=== PATIENT | female | born 1960 | race Caucasian/White ===

== ENCOUNTER → 2017-12-30 11:42 | Outpatient (CLI) | payer BC, SELFPAY ==
--- NOTE | 2017-12-30 11:45 | RAD_ITS ---
STUDY: X-RAY LEFT FOOT, FIFTH TOE REASON FOR EXAM: Female, 57 years old. Pain after trauma TECHNIQUE: 3 view(s) of the toe were obtained. COMPARISON: None. FINDINGS: There is an acute minimally displaced fracture in the distal aspect of the proximal fifth phalanx with soft tissue swelling. Joint spaces well-preserved, no other demonstrated fracture. RAD/Toe(s) Min 2 Views IMPRESSION: Acute minimally displaced fracture in the distal aspect of the proximal fifth phalanx with soft tissue swelling Electronically Signed: Akil Contreras MD at 11:55 EDT , Service support ,
== END ==
PROVIDERS: Family Provider Family Medicine; PCP Family Medicine; Visit Provider Family Medicine
DX: S90.129A Contusion of unspecified lesser toe(s) without damage to nail, initial encounter (principal)
CPT/HCPCS: 73660

== ENCOUNTER → 2018-05-21 10:02 | Outpatient (CLI) | payer BC, SELFPAY ==
--- NOTE | 2018-05-21 10:06 | RAD_ITS ---
STUDY: X-RAY - CERVICAL SPINE REASON FOR EXAM: Female, 58 years old. Neck pain for 4 months with headaches TECHNIQUE: 5 view(s) of the cervical spine were obtained. COMPARISON: None FINDINGS: Normal anterior atlantoaxial articulation. Normal odontoid process. There is straightening of the normal cervical lordosis. There is multi-level endplate spondylosis. There is loss of disc space at multiple cervical levels but most conspicuous at C5-C6 and C6-C7. Uncovertebral hypertrophy and facet arthropathy contribute to foraminal narrowing of bilateral foraminal stenosis at C5-C6 and C6-C7. The soft tissue structures are unremarkable. RAD/Cerv Spine 4 or 5 Views IMPRESSION: Degenerative disc disease with foraminal stenosis most evident at C5-C6 and C6-C7. Electronically Signed: Fan Faustin MD at 7:03 EST , Service support ,
== END ==
PROVIDERS: Family Provider Family Medicine; PCP Family Medicine; Referring Provider Family Medicine; Visit Provider Family Medicine
DX: M54.2 Cervicalgia (principal)
CPT/HCPCS: 72050; A4216

== ENCOUNTER → 2018-06-03 16:57 | Outpatient (CLI) | payer BC, SELFPAY ==
--- NOTE | 2018-06-03 17:02 | MRI_ITS ---
STUDY: MRI CERVICAL SPINE WITHOUT CONTRAST REASON FOR EXAM: Female, 58 years old. Left-sided neck pain radiating into the head with burning in the left ear TECHNIQUE: Standardized fat and water weighted pulse sequences were obtained in the sagittal and axial planes. COMPARISON: None FINDINGS: Normal foramen magnum and brainstem-cervical cord junction. Normal craniovertebral junction. Normal anterior atlantoaxial articulation. Normal odontoid process. Normal cervical lordosis. Normal vertebral bodies and posterior osseous elements. C2-3: Normal endplates. Normal disc height, signal and morphology. Normal central canal and intervertebral neural foramina. C3-4: Disc osteophyte complex and left facet hypertrophy with severe left foraminal stenosis. C4-5: Disc osteophyte complex and left facet hypertrophy with severe left foraminal stenosis and mild central canal stenosis. C5-6: Disc osteophyte complex and bilateral facet hypertrophy with mild central canal stenosis and severe right and moderate left foraminal stenoses. C6-7: Disc osteophyte complex with moderate central canal and severe bilateral foraminal stenoses. C7-T1: Normal endplates. Normal disc height, signal and morphology. Normal central canal and intervertebral neural foramina. Normal cervical cord. Indeterminate round T2 hypointense structure in the region of the inferior right parotid gland as seen on image 132 of series 7. Consider correlation with postcontrast neck CT if clinically indicated. MRI/Spine Cervical (Routine) IMPRESSION: Multilevel degenerative disease as described. Severe foraminal stenoses on the left at C3-4, on the left at C4-5, on the right at C5-6, and bilaterally at C6-7. No cord lesions are seen. Indeterminate round T2 hypointense structure in the region of the inferior right parotid gland as described. Consider correlation with postcontrast neck CT if clinically indicated Electronically Signed: Saroj Uriarte MD at 15:02 EST Tel , Service support ,
== END ==
PROVIDERS: Family Provider Family Medicine; PCP Family Medicine; Referring Provider Family Medicine; Visit Provider Family Medicine
DX: R51 Headache (principal)
CPT/HCPCS: 72141

== ENCOUNTER → 2018-06-16 07:11 | Outpatient (CLI) | payer BC, SELFPAY ==
--- NOTE | 2018-06-16 07:13 | BI_ITS ---
MAMMOGRAPHY - BILATERAL SCREENING REASON FOR EXAM: Female, 58 years old. Routine annual screening examination. PERTINENT HISTORY: Non-contributory. Bilateral breast implants. TECHNIQUE: Digital bilateral breast travon (3D mammographic acquisition) in the CC and MLO projections. 2-D mediolateral oblique (MLO) and craniocaudad (CC) views of both breasts were obtained. CAD: Full Field Digital Mammography with Computer Added Detection was performed. COMPARISON: Comparison is made with prior study dated January 24, 2016. FINDINGS: Breast Composition: The breasts are extremely dense, which lowers the sensitivity of mammography. There are no dominant masses or suspicious calcifications. Stable appearance of the bilateral breast implants. No other significant abnormalities are identified. There has been no significant change since the prior study. BI/SCREENING MAMM (CAD), BILAT IMPRESSION: Stable bilateral screening mammogram. Yearly follow-up mammogram recommended. (A) ASSESSMENT CATEGORY: BIRADS Category 2: Benign. A letter regarding these results will be sent to the patient by the facility within 30 days. Approximately 10% of breast cancers are not detected by mammography. A normal mammogram should not delay biopsy of a clinically suspicious abnormality. [id number] Electronically Signed: Bravo Pritchard MD at 9:02 EST Tel [phone], Service support ,
--- OUTSIDE RECORDS SUMMARY | 2018-09-17 17:06 | XMS RPT_ITS ---
:1960 Author Organization [facility] Care Team Providers Name Role Phone YANG SOLORZANO MD Attending Unavailable JEANINE MONTGOMERY, YANG Hannah Attending Unavailable Daniel Jane Attending Unavailable Buck, Daniel Primary Care Unavailable Daniel Jane Referring Unavailable Buck, Daniel Attending Unavailable Daniel Jane Referring Unavailable Daniel Jane Primary Care Unavailable Daniel Jane Attending Unavailable Jane, Daniel Referring Unavailable Jane, Daniel Primary Care Unavailable Jane, Daniel Attending Unavailable Jane, Daniel Referring Unavailable Jane, Daniel Primary Care Unavailable PROBLEMS PROBLEMS DATE TYPE CONDITION / CODE ATTENDING STATUS SOURCE 12/30/2017 Unknown S90.129A - Daniel Jane Active [facility] without damage to nail, initial encounter / S90.129A(ICD-10) PROCEDURES PROCEDURES No Procedure Records FoundRESULTS RESULTS SCREENING MAMM (CAD), Observed: 06/16/2018 Status: F Source: EPIFANIO BILAT 7:13 AM [facility] REPOSITORY [facility] Imaging Services [address] [place] [address] SCREENING MAMM (CAD), BILAT MR#: [id number] Acct: [id number] Name: ROB YOUNGBLOOD Rep #: [id number] : 1960 F 58 From: Bravo Pritchard MD PCP: Daniel Jane MD Status: REG CLI Study: SCREENING MAMM (CAD), BILAT Date of Exam: 06/16/18 Exam# [id number] Ordering Dr: Daniel Jane MD MAMMOGRAPHY - BILATERAL SCREENING REASON FOR EXAM: Female, 58 years old. Routine annual screening examination. PERTINENT HISTORY: Non-contributory. Bilateral breast implants. TECHNIQUE: Digital bilateral breast travon (3D mammographic acquisition) in the CC and MLO projections. 2-D mediolateral oblique (MLO) and craniocaudad (CC) views of both breasts were obtained. CAD: Full Field Digital Mammography with Computer Added Detection was performed. COMPARISON: Comparison is made with prior study dated January 24, 2016. FINDINGS: Breast Composition: The breasts are extremely dense, which lowers the sensitivity of mammography. There are no dominant masses or suspicious calcifications. Stable appearance of the bilateral breast implants. No other significant abnormalities are identified. There has been no significant change since the prior study. BI/SCREENING MAMM (CAD), BILAT IMPRESSION: Stable bilateral screening mammogram. Yearly follow-up mammogram recommended. (A) ASSESSMENT CATEGORY: BIRADS Category 2: Benign. A letter regarding these results will be sent to the patient by the facility within 30 days. Approximately 10% of breast cancers are not detected by mammography. A normal mammogram should not delay biopsy of a clinically suspicious abnormality. [id number] Electronically Signed: Bravo Pritchard MD at 9:02 EST Tel [phone], Service support , CC: Daniel Jane MD Level Vial Sealer: Signed SPINE CERVICAL Observed: 06/03/2018 Status: F Source: SEA GIRT (ROUTINE) 5:02 PM [facility] REPOSITORY [facility] Imaging Services [address] [place] [address] Spine Cervical (Routine) MR#: [id number] Acct: [id number] Name: ROB YOUNGBLOOD Rep #: [id number] : 1960 F 58 From: Saroj Uriarte MD PCP: Daniel Jane MD Status: REG CLI Study: Spine Cervical (Routine) Date of Exam: 06/03/18 Exam# [id number] Ordering Dr: Daniel Jane MD STUDY: MRI CERVICAL SPINE WITHOUT CONTRAST REASON FOR EXAM: Female, 58 years old. Left-sided neck pain radiating into the head with burning in the left ear TECHNIQUE: Standardized fat and water weighted pulse sequences were obtained in the sagittal and axial planes. COMPARISON: None FINDINGS: Normal foramen magnum and brainstem-cervical cord junction. Normal craniovertebral junction. Normal anterior atlantoaxial articulation. Normal odontoid process. Normal cervical lordosis. Normal vertebral bodies and posterior osseous elements. C2-3: Normal endplates. Normal disc height, signal and morphology. Normal central canal and intervertebral neural foramina. C3-4: Disc osteophyte complex and left facet hypertrophy with severe left foraminal stenosis. C4-5: Disc osteophyte complex and left facet hypertrophy with severe left foraminal stenosis and mild central canal stenosis. C5-6: Disc osteophyte complex and bilateral facet hypertrophy with mild central canal stenosis and severe right and moderate left foraminal stenoses. C6-7: Disc osteophyte complex with moderate central canal and severe bilateral foraminal stenoses. C7-T1: Normal endplates. Normal disc height, signal and morphology. Normal central canal and intervertebral neural foramina. Normal cervical cord. Indeterminate round T2 hypointense structure in the region of the inferior right parotid gland as seen on image 132 of series 7. Consider correlation with postcontrast neck CT if clinically indicated. MRI/Spine Cervical (Routine) IMPRESSION: Multilevel degenerative disease as described. Severe foraminal stenoses on the left at C3-4, on the left at C4-5, on the right at C5- 6, and bilaterally at C6-7. No cord lesions are seen. Indeterminate round T2 hypointense structure in the region of the inferior right parotid gland as described. Consider correlation with postcontrast neck CT if clinically indicated Electronically Signed: Saroj Uriarte MD at 15:02 EST Tel , Service support , CC: Daniel Jane MD Level Vial Sealer: Signed CERV SPINE 4 OR 5 Observed: 05/21/2018 Status: F Source: SEA GIRT VIEWS 10:07 AM [facility] REPOSITORY [facility] Imaging Services [address] [place] [address] Cerv Spine 4 or 5 Views MR#: [id number] Acct: [id number] Name: ROB YOUNGBLOOD Rep #: [id number] : 1960 F 58 From: Fan Faustin MD PCP: Daniel Jane MD Status: REG CLI Study: Cerv Spine 4 or 5 Views Date of Exam: 05/21/18 Exam# [id number] Ordering Dr: Daniel Jane MD STUDY: X-RAY - CERVICAL SPINE REASON FOR EXAM: Female, 58 years old. Neck pain for 4 months with headaches TECHNIQUE: 5 view(s) of the cervical spine were obtained. COMPARISON: None FINDINGS: Normal anterior atlantoaxial articulation. Normal odontoid process. There is straightening of the normal cervical lordosis. There is multi-level endplate spondylosis. There is loss of disc space at multiple cervical levels but most conspicuous at C5-C6 and C6-C7. Uncovertebral hypertrophy and facet arthropathy contribute to foraminal narrowing of bilateral foraminal stenosis at C5-C6 and C6-C7. The soft tissue structures are unremarkable. RAD/Cerv Spine 4 or 5 Views IMPRESSION: Degenerative disc disease with foraminal stenosis most evident at C5-C6 and C6-C7. Electronically Signed: Fan Faustin MD at 7:03 EST , Service support , CC: Daniel Jane MD Level Vial Sealer: Signed TOE(S) MIN 2 VIEWS Observed: 12/30/2017 Status: F Source: SEA GIRT 11:46 AM [facility] REPOSITORY [facility] Imaging Services [address] [place] [address] Toe(s) Min 2 Views MR#: [id number] Acct: [id number] Name: ROB YOUNGBLODO Rep #: [id number] : 1960 F 57 From: Russ Contreras MD PCP: Daniel Jane MD Status: REG CLI Study: Toe(s) Min 2 Views Date of Exam: 12/30/17 Exam# [id number] Ordering Dr: Daniel Jane MD STUDY: X-RAY LEFT FOOT, FIFTH TOE REASON FOR EXAM: Female, 57 years old. Pain after trauma TECHNIQUE: 3 view(s) of the toe were obtained. COMPARISON: None. FINDINGS: There is an acute minimally displaced fracture in the distal aspect of the proximal fifth phalanx with soft tissue swelling. Joint spaces well-preserved, no other demonstrated fracture. RAD/Toe(s) Min 2 Views IMPRESSION: Acute minimally displaced fracture in the distal aspect of the proximal fifth phalanx with soft tissue swelling Electronically Signed: Akil Contreras MD at 11:55 EDT , Service support , CC: Daniel Jane MD Level Vial Sealer: Signed XR FLUORO < 1HR Observed: 10/15/2017 Status: F Source: [place] TECH TIME 2:49 PM [facility] RE[facility]INAL Images acquired, not reported on this accession number. CMP Collected: 10/09/2017 Status: F Source: [place] 8:38 AM [facility] REPOSITORY TYPE CODE TESTS RESULT OUT OF REFERENCE UNITS RANGE LAB 1547-9 70-105 mg/dL GLUCOSE 91 LAB NA(LOINC) 136-146 mEq/L Sodium Level 139 LAB K(LOINC) 3.5-5.1 mEq/L Potassium Level 4.5 LAB CL(LOINC) 98-107 mEq/L Chloride 102 LAB CO2(LOINC) 22-29 mEq/L CO2 26 LAB EBAL(LOINC mEq/L ) Electrolyte Balance 11.0 LAB BUN(LOINC) 7.0-18.0 mg/dL BUN High 18.4 LAB CRE(LOINC) 0.6-1.2 mg/dL Creatinine Lvl (s) 1.0 LAB BC(LOINC) 7-27 ratio BUN/Creatinine 18 Ratio LAB CA(LOINC) 8.4-10.2 mg/dL Calcium Lvl High 10.5 LAB PROT(LOINC 6.0-8.3 G/dL ) Total Protein 7.3 LAB ALB(LOINC) 3.5-5.0 G/dL Albumin Level 4.6 LAB GLB(LOINC) G/dL Globulin 2.7 LAB AG(LOINC) 1.1-2.5 ratio A/G Ratio 1.7 LAB BILT(LOINC 0.2-1.0 mg/dL ) Bili Total 0.7 LAB AP(LOINC) 40-135 IU/L Alk Phos 72 LAB AST(LOINC) 10-40 IU/L AST/SGOT 25 LAB ALT(LOINC) 10-35 IU/L ALT/SGPT 17 Performed By: #### CMP, GFR, CBC, ADIFF, ANEU #### [facility] [address] [address] .GFR Collected: 10/09/2017 Status: F Source: [place] 8:38 AM [facility] REPOSITORY TYPE CODE TESTS RESULT OUT OF REFERENCE UNITS RANGE LAB GFRAA(LOINC ml/min/1.73 ) sqm GFR 69 Singaporean Result Comment: GFR Population mean for , Non- Americans Ages 20-29 = 116 mL/min/1.73 sq.m. Ages 30-39 = 107 mL/min/1.73 sq.m. Ages 40-49 = 99 mL/min/1.73 sq.m. Ages 50-59 = 93 mL/min/1.73 sq.m. Ages 60-69 = 85 mL/min/1.73 sq.m. Ages 70+ = 75 mL/min/1.73 sq.m. Chronic Kidney Disease: Less than 60 mL/min/1.73 square meters End Stage Renal Disease: Less than 15 mL/min/1.73 square meters LAB GFRNO(LOINC) ml/min/1.73sqm GFR Non- 57 Result Comment: GFR Population mean for , Non- Americans Ages 20-29 = 116 mL/min/1.73 sq.m. Ages 30-39 = 107 mL/min/1.73 sq.m. Ages 40-49 = 99 mL/min/1.73 sq.m. Ages 50-59 = 93 mL/min/1.73 sq.m. Ages 60-69 = 85 mL/min/1.73 sq.m. Ages 70+ = 75 mL/min/1.73 sq.m. Chronic Kidney Disease: Less than 60 mL/min/1.73 square meters End Stage Renal Disease: Less than 15 mL/min/1.73 square meters Performed By: #### CMP, GFR, CBC, ADIFF, ANEU #### [facility] [address] [address] CBC Collected: 10/09/2017 Status: F Source: [facility] 8:38 AM [facility] REPOSITORY TYPE CODE TESTS RESULT OUT OF REFERENCE UNITS RANGE LAB WBC(LOINC) 4.60-10.80 10 3/mcL WBC 4.60 LAB RBCCT(LOINC 4.20-5.40 10 6/mcL ) RBC 4.66 LAB HGB(LOINC) 12.0-16.0 G/dL Hgb 14.6 LAB HCT(LOINC) 37.0-47.0 % Hct 42.3 LAB MCV(LOINC) 80.0-94.0 fL MCV 90.8 LAB MCH(LOINC) 27.0-31.2 pg MCH 31.2 LAB MCHC(LOINC) 33.0-37.0 G/dL MCHC 34.4 LAB RDW(LOINC) 11.5-14.5 % RDW 13.2 LAB PLT(LOINC) 130-400 10 3/mcL Platelet 303 LAB MPV(LOINC) 7.4-10.4 fL MPV 8.9 Performed By: #### CMP, GFR, CBC, ADIFF, ANEU #### [address] [address] .AUTO DIFF Collected: 10/09/2017 Status: F Source: [facility] 8:38 [facility] REPOSITORY TYPE CODE TESTS RESULT OUT OF REFERENCE UNITS RANGE LAB ZENIA(LOINC) 37.0-80.0 % Neutrophil % 41.2 LAB LYM(LOINC) 10.0-50.0 % Lymphocyte % 43.5 LAB MON(LOINC) 1.7-13.0 % Monocyte % 9.8 LAB EO(LOINC) 0.0-7.0 % Eosinophil % 2.3 LAB BAS(LOINC) 0.0-2.5 % Basophil High % 3.2 LAB ABLYM(LOIN 0.77-3.85 10 3/mcL C) Lymphocyte, 2.00 Absolute LAB CONNOR(LOINC 0.15-1.00 10 3/mcL ) Monocyte, 0.50 Absolute LAB AEOS(LOINC 0.00-0.40 10 3/mcL ) Eosinophil, 0.10 Absolute LAB ABAS(LOINC 0.00-0.19 10 3/mcL ) Basophil, 0.10 Absolute Performed By: #### CMP, GFR, CBC, ADIFF, ANEU #### [facility] [address] [address] .NEUABS Collected: 10/09/2017 Status: F Source: [facility] 8:38 AM [facility] REPOSITORY TYPE CODE TESTS RESULT OUT OF REFERENCE UNITS RANGE LAB ANEU(LOINC) 2.85-6.16 10 3/mcL Low Neutrophil, 1.90 Absolute Performed By: #### CMP, GFR, CBC, ADIFF, ANEU #### [facility] [address] [place], [place] [address] ALLERGIES ALLERGIES No Allergies Records FoundENCOUNTERS ENCOUNTERS ADMIT/DISCHARGE ACCOUNT NUMBER ADMITTING ENCOUNTER LOCATION SOURCE CLASS 06/16/2018 [id number] [facility] ding:OPBI Repository 06/03/2018 [id number] [facility] ding:MRI Repository 05/21/2018 [id number] [facility] ding:MTRAD Repository 12/30/2017 [id number] [facility] ding:MTRAD Repository 10/15/2017/10/16/19 [id number] Ambulatory BBuilding:OS [address]: Health 0001Bed: D [facility] Repository 10/09/2017/10/10/19 [id number] Ambulatory [address] ding:OPRS [facility] Repository PAYERS PAYERS ENCOUNTER GUARANTOR PAYER SUBSCRIBER SOURCE 06/16/2018 TON Verma Primary TON Verma Epifanio [id number] Insurance:ANTHEMPolicy LTZDOB: [facility] Number: [id number] [id number] Repository [address]Edx: 330) Date:4030-00-03[phone] () [place]QZIM[place]CT, [place] [address]IZ: 06/16/2018 Secondary NOT GIVENUNK [place] Insurance:SELF PAY [facility] Number: Effective Repository Date:2018-05-02 06/03/2018 TON Verma Primary TON L [place] [id number] Insurance:ANTHEMPolicy TRENARYZB: [facility] Number: [id number], [place] [id number] Repository [address]Gpc: ([phone]) Date:3825-02-44VU [phone] () [id number] [place] [address]BP: 06/03/2018 Secondary NOT GIVENUNK [place] Insurance:SELF PAY [facility] Number: Effective Repository Date:2018-05-28 05/21/2018 TON L Primary TON Verma Epifanio [id number] Insurance:ANTHEMPolicy AULTZDOB: [facility] Number: [id number], [place] [id number] Repository [address]Zhd: ([phone]) Date:4748-97-35LX [phone] () 964148PGYQPTM, [place] [address]RD: 05/21/2018 Secondary NOT GIVENUNK Epifanio Insurance:SELF PAY [facility] Number: Effective Repository Date:2018-05-21 12/30/2017 TON L Primary TON Verma Epifanio [id number] Insurance:ANTHEMPolicy AULTZDOB: [facility] PETE Number: [id number], [place] [id number] Repository [address]Kjv: ([phone]) Date:6279-39-09[phone] () 967316JATLGZB, [place] [address]CF: 12/30/2017 Secondary NOT GIVENUNK [place] Insurance:SELF PAY [facility] Number: Effective Repository Date:2017-12-30 10/15/2017 [facility]:ANTHEM AULTZDOB: Foundation [id number] BENEFITS ADMINPolicy [id number] Repository [facility] Number: [address] [place] [place], [place] [id number] [place] [address] Date:2017-10-07 [address]Hrk: [phone] [id number] Name: [phone] [address]PEDRO DASILVA ()Tel: [phone]: ([phone] 10/09/2017 ROB Zaldivar Primary ROB Zaldivar [facility]: Insurance:ANTHNATALI BLUE [id number] [facility] [id number] [employer] Number: [place] [id number]: [phone] Date:2017-10-07 [phone] (WP) [id number] Name:[facility] [id number], [place] [address]JH:
== END ==
PROVIDERS: Family Provider Family Medicine; PCP Family Medicine; Referring Provider Family Medicine; Visit Provider Family Medicine
DX: Z12.31 Encounter for screening mammogram for malignant neoplasm of breast (principal)
CPT/HCPCS: 77063; 77067

== ENCOUNTER → 2018-10-13 12:15 | Outpatient (CLI) | payer BC, SELFPAY ==
--- NOTE | 2018-10-13 12:18 | US_ITS ---
STUDY: ULTRASOUND HEAD AND NECK SOFT TISSUE, RIGHT REASON FOR EXAM: Female, 58 years old. Parotid gland lesion. TECHNIQUE: Ultrasound evaluation of the right parotid gland was performed with real-time and color Doppler and static pereira-scale imaging. COMPARISON: None. FINDINGS: Within the substance of the right parotid gland, there is a circumscribed oval cystlike focus measuring 5 x 6 x 3 mm, with no significant complex features. The surrounding gland is normal. Vascularity is normal. US/Head/Neck Soft Tissue IMPRESSION: 5 x 6 x 3 mm right parotid gland cyst. Differential considerations are somewhat broad, including worsening tumor, 1st brachial cleft cyst, lymphangioma, benign lymphoepithelial. Follow-up surveillance imaging versus ultrasound guided FNA aspiration is recommended. Consultation with otolaryngology is recommended. Electronically Signed: Tu Sharma MD at 15:55 EDT Tel , Service support ,
== END ==
PROVIDERS: Family Provider Family Medicine; PCP Family Medicine; Referring Provider Family Medicine; Visit Provider Family Medicine
DX: K11.8 Other diseases of salivary glands (principal)
CPT/HCPCS: 76536

== ENCOUNTER → 2019-04-24 16:02 | Outpatient (CLI) | payer BC, SELFPAY ==
--- NOTE | 2019-04-24 16:06 | US_ITS ---
STUDY: SUPERFICIAL ULTRASOUND - HEAD AND NECK SOFT TISSUE, RIGHT PARATHYROID GLAND. REASON FOR EXAM: Female, 59 years old. Follow-up parathyroid lesion. TECHNIQUE: A superficial ultrasound was performed with real-time and static pereira-scale imaging. COMPARISON: None. FINDINGS: At the level of the right parathyroid gland, there is redemonstration previous cystic structure measuring 0.8 x 0.6 x 0.3 cm and stable. Images of the left parathyroid gland reveal a subtle hypoechoic nodule measuring 0.4 x 0.3 x 0.3 cm which could represent a small ill-defined cyst, a small lymph node versus nonspecific nodule with wide differential diagnosis such as benign neoplasm, a lymphangioma or complex cyst. Other tumors not entirely excluded. Clinical correlation recommended and if indicated, follow-up in 2-3 months to evaluate for resolution/stability or ENT consultation, depending on history and clinical presentation. US/Head/Neck Soft Tissue IMPRESSION: Electronically Signed: Lilia Reese MD at 3:40 EDT , Service support ,
== END ==
PROVIDERS: Family Provider Family Medicine; PCP Family Medicine; Referring Provider Family Medicine; Visit Provider Family Medicine
DX: K11.8 Other diseases of salivary glands (principal)
CPT/HCPCS: 76536

== ENCOUNTER → 2019-07-03 11:18 | Outpatient (CLI) | payer OTHER, SELFPAY ==
[2019-07-03 13:20] LABS: Anion Gap 4 (5-15); BUN 18 mg/dL (7-18); BUN/Creat Ratio 17.6 RATIO (10-20); Calcium,Total 8.9 mg/dL (8.5-10.1); Chloride 105 mmol/L (98-107); Cholesterol 273 mg/dL (200); Creatinine, Serum 1.02 mg/dL (0.55-1.02); EST Glomerular Filtration Rate 59 mL/min (>60); Est Glom Filt Rate - Afr Amer 72 mL/min (>60); Glucose 87 mg/dL (74-106); High Density Lipoprotein 68 mg/dL; Potassium 4.2 mmol/L (3.5-5.1); Sodium Level 139 mmol/L (136-145); Triglycerides 109 mg/dL; Very Low Density Lipoprotein 22 mg/dL (5-40)
== END ==
PROVIDERS: Family Provider Family Medicine; PCP Family Medicine; Referring Provider Family Medicine; Visit Provider Family Medicine
DX: Z13.220 Encounter for screening for lipoid disorders (principal); Z13.1 Encounter for screening for diabetes mellitus
CPT/HCPCS: 36415; 80048; 80061

== ENCOUNTER → 2019-07-16 16:46 | Outpatient (CLI) | payer OTHER, SELFPAY ==
--- NOTE | 2019-07-16 16:48 | BI_ITS ---
MAMMOGRAPHY - BILATERAL SCREENING REASON FOR EXAM: Female, 59 years old. Routine annual screening examination. PERTINENT HISTORY: Non-contributory. Bilateral breast implants. TECHNIQUE: Digital bilateral breast eliot (3D mammographic acquisition) in the CC and MLO projections. 2-D mediolateral oblique (MLO) and craniocaudad (CC) views of both breasts were obtained. CAD: Full Field Digital Mammography with Computer Added Detection was performed. COMPARISON: Comparison is made with prior study dated June 16, 2018 and January 24, 2016. FINDINGS: Breast Composition: The breasts are extremely dense, which lowers the sensitivity of mammography. There are no dominant masses or suspicious calcifications. Stable appearance of the bilateral breast implants. Stable small benign-appearing bilateral axillary lymph nodes. No other significant abnormalities are identified. There has been no significant change since the prior study. BI/SCREEN MAMM (CAD) W/ELIOT BILAT IMPRESSION: Stable bilateral screening mammogram. Yearly follow-up mammogram recommended. (A) ASSESSMENT CATEGORY: BIRADS Category 2: Benign. A letter regarding these results will be sent to the patient by the facility within 30 days. Approximately 10% of breast cancers are not detected by mammography. A normal mammogram should not delay biopsy of a clinically suspicious abnormality. [id number] Electronically Signed: Bravo Pritchard, at 8:49 EST , Service support ,
== END ==
PROVIDERS: Family Provider Family Medicine; PCP Family Medicine; Referring Provider Family Medicine; Visit Provider Family Medicine
DX: Z12.31 Encounter for screening mammogram for malignant neoplasm of breast (principal)
CPT/HCPCS: 77063; 77067

== ENCOUNTER → 2020-08-15 11:23 | Outpatient (CLI) | payer OTHER, SELFPAY ==
--- NOTE | 2020-08-15 11:26 | RAD_ITS ---
STUDY: X-RAY - RIGHT WRIST REASON FOR EXAM: Lateral sided lump, de Quervain''s tenosynovitis. TECHNIQUE: 4 view(s) of the wrist were obtained. COMPARISON: None. FINDINGS: Normal visualized distal radius and ulna. Normal radiocarpal articulation. Normal distal radioulnar articulation. Normal carpal bones. Normal carpal articulations. Normal carpometacarpal articulation of the thumb. Normal second through fifth carpometacarpal articulations. Normal visualized metacarpal bones. There is soft tissue fullness adjacent to the radial styloid. RAD/Wrist min 3 Views IMPRESSION: Soft tissue fullness adjacent to the radial styloid Electronically Signed: Fernandez Hernandez MD at 12:13 EST Tel , Service support ,
== END ==
PROVIDERS: PCP Family Medicine; Referring Provider Family Medicine; Visit Provider Family Medicine
DX: M65.4 Radial styloid tenosynovitis [de Quervain] (principal)
CPT/HCPCS: 73110

== ENCOUNTER 2021-10-16 07:30 | Outpatient (RCR) | payer OTHER, SELFPAY ==
--- NOTE | 2021-09-20 07:57 | HP.PTEVAL ---
Patient's Visit Information ROB YOUNGBLOOD is a 61 year old F referred to Physical Therapy by Dr. Elizabeth Kline MD with a diagnosis of Cervicalgia. Date of Evaluation: 09/20/21 Physical Therapist: Shamika Lopez DPT - Visit Plan Frequency: 2x /Week Duration: 4 Weeks Plan: Focus on scapular s/s- decrease compensation of shoulder shrug with all activities. Manual for sub occipital release. HEP Given IE: Posture, Scapular retraction, supine chin tucks, seated chin tucks, bilateral ER with green TBand, Mid Row Blue Tband, LAE green tband - Subjective She has stenosis in her spine C4-[address] Patel. She has never been off the anti-inflammatory- Dr. Barber took was taking [place] then changes to Celebrex- 2 weeks ago- its better but she still has discomfort. She does Jay 2x a week and works out with [employer] 2x a week ([employer])- she has dropped back her weight and walking. She also has fibro on top of all of this but she is very good with management. She has upper trap pain, down to the deltoid, and she has sharp pains that come into the forehead. 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 Worst: 12/08. Agg: working out, computer work, reading. Eases: Celebrex, stretching, muscle relaxer at night. Headaches- start with shooting pains- dull and throb- does have migraines (sumatriptolene). Muscle relaxer has 1x a week- if she doesn't take it she has it all the time if she is active. Best: 07/10. No blurred vision, dizziness. No N/T in the fingers- no change in chair inspector and leveler strength/finger dexterity. 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 Prior to surgery she had severe pain to the elbow-in constant pain- she feels that the surgery was 70% successful. Sleep: does wake her up when she has the GIL[place]ERT. No recent MRI/x-rays. No injections or any pain mgmt. - Objective Posture: FH, RS- can correct with verbal and tactile cues but does not maintain. Gait: no deviation noted- good arm swing and trunk rotation. Palpation: tender along suboccipitals, down the cervical paraspinals the the upper trap to the AC joint, medial border of the scapula, and into the infraspinatus. Observation: moderate winging of the scapula and shoulder shrug with all exercises of the UE. ROM: WFL in all planes of the cervical spine and UE. Strength: Scap: fair minus, Shoulder: flexion: 4+/5, Extn: 4/5, Abd: 4+/5, Add: 4+/5, IR/ER: 4/5, Elbow: 5/5, Wrist: 5/5, Node Js Developer: good - Balance/Special Test Scores Oswestry Neck Score: 9 - Goals Goal 1:: Patient will be I with HEP and progression Goal Time Frame: 4-6 Weeks Goal 2:: Patient will maintain proper posture t/o tx session to demo increase scap s/s Goal Time Frame: 4-6 Weeks Goal 3:: Patient will perform exercises without shoulder shrug Goal Time Frame: 4-6 Weeks Goal 4:: Patient will report 80% improvement of symptoms Goal Time Frame: 4-6 Weeks - Rehabilitation Potential Physical Therapy Diagnosis: Patient presents with hypomobility- she has decreased UE and scapular strength/stabilization and muscular endurance leading to compensatory patterns and increased pain with ADL's and recreational activities. Rehabilitation Potential: Fair - Anticipated Interventions Patient/Client Instruction: Educate patient on: Benefits of Fitness Program Therapeutic Exercise to Include: Strength training, Endurance training, Balance training, Coordination, Body mechanics, Postural training, Flexibilty training, Neuromotor development, Dynamic Lumbar Stabilization, Scapular Strength/Stabilization For the Purpose of:: To improve muscle performance and motor function TENS: Yes Cryotherapy (ice pack, ice massage): Yes Thermo therapy (hot pack): Yes Ultrasound (thermal/non thermal): No Thank you for the opportunity to evaluate your patient. For Medicare and Medicare HMO plans, please review the plan of care and approve it. It will need to be FAXED BACK to us at [phone] for Medicare purposes. For Medicare only, by signing this I certify the plan of care. Please let me know if there are questions or concerns regarding this plan of care. Physician Signature: Date:
--- NOTE | 2021-10-16 07:47 | HP.PTDCSUM ---
It has been my pleasure to treat ROB YOUNGBLOOD referred by Dr. Elizabeth Kline MD, with the diagnosis of Cervicalgia for a total of 7 visit(s). Discharge Date: Please see the following information for a summary of their discharge status. Subjective: Patient reports that her shoulders are more muscle soreness than pain. Neck and headaches are way better. 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 She feels that she is 80% back to normal. She feels that she working at her posture and feels that she can do all of the exercises on her own. % Improvement: 80 Objective/Function: Posture: good throughout treatment session- no cueing required. Gait: no deviation noted- good arm swing and trunk rotation. Palpation: not tender to touch throughout cervical/thoracic spine or shoulder complex Observation: mild winging of the scapula- improved positioning of upper trap and shoulder shrugging ROM: WFL in all planes of the cervical spine and UE. Strength: Scap: fair plus, Shoulder: flexion: 4+/5, Extn: 4+/5, Abd: 4+/5, Add: 4+/5, IR/ER: 4+/5, Elbow: 5/5, Wrist: 5/5, Educational Technology Specialist: good Goal 1:: Patient will be I with HEP and progression Goal Progress: Goal Met Goal 2:: Patient will maintain proper posture t/o tx session to demo increase scap s/s Goal Progress: Goal Met Goal 3:: Patient will perform exercises without shoulder shrug Goal Progress: Goal Met Goal 4:: Patient will report 80% improvement of symptoms Goal Progress: Goal Met Plan: Discharge to HEP- continue with KB's with personal lines agent. If there are questions or concerns regarding this patient's physical therapy, please feel free to call me at [phone]. Thank you for the referral of this patient. Sincerely, Shamika Lopez, DPT Balance/Gait/Functional tests - Balance/Special Test Scores Oswestry Neck Score: 9 Quick DASH Score: 2.2725
== END 2021-10-16 19:00 | disposition home or self-care (01) ==
LOC: PT 07:30
PROVIDERS: PCP Family Medicine; Referring Provider Family Medicine; Visit Provider Family Medicine
DX: M54.2 Cervicalgia (principal)
CPT/HCPCS: 97110; 97161; 97164

== ENCOUNTER 2021-11-26 20:35 | Emergency (ER) | payer OTHER, SELFPAY ==
[2021-11-26 20:36] VITALS: BP 93/65; PULSE 98; RESP 15; TEMP 37.1; BMI 22.1
--- NOTE | 2021-11-26 21:14 | CT_ITS ---
STUDY: CT ABDOMEN AND PELVIS WITH CONTRAST REASON FOR EXAM: Female, 61 years old. abdominal pain RADIATION DOSAGE (If Supplied By Facility): CTDIvol = ( 8.59 ) mGy, DLP = ( 562.13 ) mGycm TECHNIQUE: Transaxial images were obtained from the dome of the diaphragm to the symphysis pubis without oral contrast. IV 75mL Isovue-300 was administered. Sagittal and coronal images were reconstructed. Individualized dose optimization techniques were used for this CT. COMPARISON: None. FINDINGS: The visualized lung bases demonstrate mild right lower lobe and minimal left lower lobe dependent atelectasis. The visualized portions of the heart are within normal limits. There is a hypoattenuating lesion in the superior aspect of the right lobe of the liver with ill-defined margins. This measures 1.63 cm. This does not meet criteria for cyst or hemangioma. This could represent atypical hemangioma, hepatic adenoma. Focal nodular hyperplasia, primary neoplasm or metastatic lesion. Correlation advised. Mild gallbladder distention. No evidence of cholelithiasis. Remainder biliary system normal. Normal spleen. Normal pancreas. Normal bilateral adrenal glands. Normal right kidney. Normal left kidney. Normal visualized stomach. There is mild distention of the small bowel in the left upper quadrant extending to the left midabdomen and extending across the midline in the mid abdominal region. Findings likely represent mild small bowel ileus. Normal colon. The appendix is visualized and appears normal. Normal abdominal aorta. Normal inferior vena cava. No evidence of adenopathy. There is mild diffuse mesenteric edema in the mid and lower abdomen extending into the pelvis. There is a small amount of free fluid in the pelvis. The etiology of this mesenteric edema and free fluid is uncertain. Correlation advised. Normal urinary bladder. Small umbilical hernia 1 x 1.5 cm. Normal osseous structures. CT/Abdomen/Pelvis W IV Cont ONLY IMPRESSION: Hypoattenuating mass lesion right lobe of liver 1.63 cm. Second hypoattenuating lesion lateral segment left lobe of liver 0.71 cm. These could represent atypical hemangioma, hepatic primary, metastatic lesion, as well as benign lesion such as focal nodular hyperplasia or hepatic adenoma. Mild small bowel ileus left mid abdomen and left upper quadrant extending across the midline in the mid abdominal region. Mesenteric edema in the lower abdominal region extending into the pelvic region. Electronically Signed: Gigi Torrez MD, JESUS at 22:39 EDT ,
[2021-11-26] MEDS: Morphine 4 MG/ML Syringe IV (21:26)
[2021-11-26] MEDS: Ondansetron 4 MG/2 ML Vial IV (21:26)
[2021-11-26] MEDS: 0.9% Normal Saline 1,000 ML 1000 ML IV (21:26)
[2021-11-26 21:41] LABS: Absolute Lymphocyte Count 1.22 X10^3/uL (0.83-4.51); Absolute Neutrophil Count 8.3 X10^3/uL (2.0-7.7); Basophil# 0.04 X10^3/uL; Basophil% 0.4 % (0-1); Eosinophil# 0.03 X10^3/uL; Eosinophils% 0.3 % (0-5); Hematocrit 43.7 % (37-47); Hemoglobin 14.2 g/dL (12.0-15.0); Lymphocyte # 1.22 X10^3/ul (0.83-4.51); Lymphocyte % 12.2 % (19-41); Mean Corp Hgb Conc 32.5 g/dL (32-36); Mean Corpuscular Hgb 30.3 pg (27.0-32.0); Mean Corpuscular Volume 93.4 fL (81-99); Mean Platelet Vol. 10.5 fl (6.2-12.0); Monocyte# 0.38 X10^3/uL; Monocyte% 3.8 % (0-10); NRBC Flagged by Analyzer 0 % (0-5); Neutrophil # 8.34 X10^3/uL (2.7-7.7); Neutrophil % 83.1 % (47-70); Platelet Count 313 K/mm3 (150-450); RBC Distribution Width CV 13.1 % (11.6-14.6); RBC Distribution Width SD 44.3 fl (35.1-43.9); Red Blood Count 4.68 M/mm3 (4.2-5.4)
[2021-11-26 21:57] LABS: ALB/GLOB Ratio 1.2 RATIO (0.9-2.4); AST(SGOT) 27 U/L (15-37); Alanine Aminotransfer ALT/SGPT 32 U/L (13-56); Alkaline Phosphatase 70 U/L (45-117); Anion Gap 9 (5-15); BUN 24 mg/dL (7-18); BUN/Creat Ratio 23.3 RATIO (10-20); Calcium,Total 9.3 mg/dL (8.5-10.1); Chloride 104 mmol/L (98-107); Creatinine, Serum 1.03 mg/dL (0.55-1.02); EST Glomerular Filtration Rate 58 mL/min (>60); Est Glom Filt Rate - Afr Amer 70 mL/min (>60); Estimated Creatinine Clearance 61.46 ml/min; Globulin 3.4 g/dL (2.2-4.2); Glucose 156 mg/dL (74-106); Lipase 91 U/L (73-393); Potassium 3.9 mmol/L (3.5-5.1); Protein, Total 7.4 g/dL (6.4-8.2); Sodium Level 138 mmol/L (136-145)
[2021-11-26 22:08] LABS: Squamous Epithelial Cells - UA 0 SEEN /hpf (5-10)
[2021-11-26 22:21] LABS: Color, Urine Yellow (Yellow); Glucose, Dipstick Normal (Normal); Leukocyte Esterase-Dipstick 25 /ul (Negative); Nitrite-Dipstick Negative (Negative); Occult Blood-Urine 25 /ul (Negative); Protein-Dipstick 30 mg/dl (Negative); Specific Gravity, Urine 1.015 (1.002-1.030); Urine Clarity Clear (Clear); Urine Urobilinogen 1 mg/dl (Normal); Urine pH 6.5 (5.0 - 8.0)
[2021-11-26 22:39] LABS: Urine Bilirubin Dipstick 1 mg/dL (Negative)
[2021-11-26 22:40] LABS: Ketone-Dipstick 150 mg/dl (Negative)
[2021-11-26 22:41] LABS: Bacteria 1+ /hpf (None Seen); Mucous, Urine 3+ /hpf (<or=2+); Red Blood Cells-Urine 0-5 SEEN /hpf (0-5); White Blood Cells 0-5 SEEN /hpf (0-5)
[2021-11-26] MEDS: Ketorolac 15 MG/ML Vial IV (22:52)
--- NOTE | 2021-11-26 23:34 | EDS_ITS ---
HPI HPI - GI History of Present Illness Chief Complaint: Abd Pain Narrative Narrative: 61-year-old female presenting with abdominal cramping and nausea. She states he is not having diarrhea or constipation. No fever or chills. No chest pain, palpitations, shortness of breath. No sick contacts. No recent antibiotics. Patient denies urinary complaints or vaginal complaints. She has no history of this. PFSH PFS Medical History Spinal stenosis Home Medications dicyclomine 10 mg PO TID PRN #20 cap 11/26/21 [Rx Last Taken Unknown] ondansetron 4 mg PO Q8H PRN #20 tab 11/26/21 [Rx Last Taken Unknown] Allergy/AdvReac Type Severity Reaction Status Date / Time No Known Allergies Allergy Verified 11/26/21 20:40 Social History Smoking Status: Never smoker ROS ROS ED Constitutional Constitutional ED: Denies chills or fever(s) ENT ENT ED: Denies rhinorrhea or sore throat Cardiovascular Cardiovascular: Denies chest pain or palpitations Respiratory/Chest Respiratory/Chest: Denies cough or dyspnea Gastrointestinal Gastrointestinal: Reports abdominal pain and nausea; Denies constipation, diarrhea or vomiting Genitourinary Genitourinary ED: Denies dysuria or hematuria Musculoskeletal Musculoskeletal: Denies arthralgias, myalgias or neck pain Integumentary Denies rash Neurologic Neurologic: Denies headache(s) or weakness Psychiatric Psychiatric: Denies anxiety or depression EXAM Physical Exam Const Vital Signs: 11/26/21 20:36 Temperature 98.8 F Temperature Source Temporal Pulse Rate 98 Respiratory Rate 15 Blood Pressure 93/65 Blood Pressure Mean 74 Oxygen Delivery Method Room Air Positive well nourished General Appearance ED: NAD; Negative for pallor HEENT Reports moist mucous membranes normocephalic and atraumatic Eyes PERRL and EOMs intact bilaterally Resp normal respiratory effort and clear to auscultation bilaterally Cardio regular rate and regular rhythm GI non-distended Inspection: Negative for abdominal distention Auscultation: normoactive bowel sounds Palpation: soft; Negative for guarding or rigid Neuro Sensorium / Orientation: alert, oriented to person, oriented to place and oriented to time Psych mental status grossly normal and thought process normal Skin General Skin Exam: Negative for jaundice or pallor MDM MDM MDM Narrative Medical decision making narrative: Patient given morphine and Zofran as well as IV fluids. Blood work is obtained and her CBC and CMP are within normal limits. Lipase normal. Urinalysis negative for infection. Patient still having pain and was given a dose of Toradol. Because of this I did order CT of the abdomen pelvis with IV contrast which shows Hypoattenuating mass lesion right lobe of liver 1.63 cm. Second hypoattenuating lesion lateral segment left lobe of liver 0.71 cm. The radiologist states that these may be atypical hemangioma, hepatic primary, metastatic lesion, as well as benign lesion such as focal nodular hyperplasia or hepatic adenoma. Since her LFTs and lipase are normal I do not believe she needs emergent imaging of these with ultrasound I did recommend to her that she will need follow-up with ultrasound imaging and she should discuss this with her primary care physician. Radiologist also read the CT is nonspecific mesenteric edema. After discussion of the findings patient is comfortable being discharged home. I will start her on Bentyl for abdominal cramps as well as Zofran for nausea. She is counseled to try Tylenol and ibuprofen for pain. Again she knows to talk to her primary care physician abnormal findings in her liver on CT. because of the atypical nature discussed by the radiologist I did also put a consult in for the [facility] fast pass to reach out to her. She is also given instructions on how to contact them. Return precautions discussed. Impression: 1. CT abnormality of lesions on liver. 2. Nausea 3. Abdominal pain Lab Data Attestation: I reviewed the patient's lab results. Labs: Laboratory Results - last 24 hr 11/26/21 11/26/21 11/26/21 21:30 21:30 22:00 WBC 10.0 RBC 4.68 Hgb 14.2 Hct 43.7 MCV 93.4 MCH 30.3 MCHC 32.5 RDW Std Deviation 44.3 H RDW Coeff of Ivana 13.1 Plt Count 313 MPV 10.5 Immature Gran % (Auto) 0.200 Neut % (Auto) 83.1 H Lymph % (Auto) 12.2 L [place] % (Auto) 3.8 Eos % (Auto) 0.3 Baso % (Auto) 0.4 Absolute Neuts (auto) 8.3 H Absolute Lymphs (auto) 1.22 Nucleated RBC % 0 Sodium 138 Potassium 3.9 Chloride 104 Carbon Dioxide 25.0 Anion Gap 9 BUN 24 H Creatinine 1.03 H Estim Creat Clear Calc 61.46 Est GFR (MDRD) Af Amer 70 Est GFR (MDRD) Non-Af 58 L BUN/Creatinine Ratio 23.3 H Glucose 156 H Calcium 9.3 Total Bilirubin 0.80 AST 27 ALT 32 Alkaline Phosphatase 70 Total Protein 7.4 Albumin 4.0 Globulin 3.4 Albumin/Globulin Ratio 1.2 Lipase 91 Urine Color Yellow Urine Clarity Clear Urine pH 6.5 Ur Specific [place] 1.015 Urine Protein 30 H Urine Glucose (UA) Normal Urine Ketones 150 A* Urine Occult Blood 25 H Urine Nitrite Negative Urine Bilirubin 1 H Urine Urobilinogen 1 H Ur Leukocyte Esterase 25 H Urine RBC 0-5 SEEN Urine WBC 0-5 SEEN Ur Squamous Epith Cells 0 SEEN Urine Bacteria 1+ Urine Mucus 3+ Radiography Diagnostic Testing: Clinical Impression(s) from Imaging Studies Abdomen/Pelvis CT 11/26/21 21:14 IMPRESSION: Hypoattenuating mass lesion right lobe of liver 1.63 cm. Second hypoattenuating lesion lateral segment left lobe of liver 0.71 cm. These could represent atypical hemangioma, hepatic primary, metastatic lesion, as well as benign lesion such as focal nodular hyperplasia or hepatic adenoma. Mild small bowel ileus left mid abdomen and left upper quadrant extending across the midline in the mid abdominal region. Mesenteric edema in the lower abdominal region extending into the pelvic region. Electronically Signed: Gigi Torrez MD, JESUS at 22:39 EDT Reading Location ID and State: [facility] / [place] Tel , Service support , Discharge Plan Triage Chief Complaint: Abd Pain ED Provider: Osei Muniz Dx/Rx/DC Orders Instructions: ED Abdominal Pain Unkn Cause Fem, ED Vomiting (Adult) Prescriptions: New ondansetron 4 mg tablet,disintegrating 4 mg PO Q8H PRN (Reason: nausea and vomiting) Qty: 20 RF: 0 dicyclomine 10 mg capsule 10 mg PO TID PRN (Reason: cramps) Qty: 20 RF: 0 Other Ambulatory Orders: Fast Pass: Oncology Referral [facility] (Routine) [facility] - Location: [facility] Ordered By: Dr. Osei Muniz Primary Care Provider: Elizabeth Kline Referrals: Elizabeth Kline MD [Primary Care Provider] - Activity Restrictions/Additional Instructions: I wrote a prescription for Bentyl which will help with abdominal cramping. As we discussed if you start to develop any constipation you should start with a stool softener advance to a laxative as needed. I also wrote a prescription for Zofran to help with nausea. You do have some abnormalities on your liver which need appropriate follow-up with ultrasound in a nonemergent fashion. He should discuss this with her primary care physician. Disposition Disposition: Home, Self Care Discharge Date/Time: 11/26/21 23:49
[2021-11-26] MEDS: Dicyclomine 10 MG Capsule 20 MG PO (23:43)
== END 2021-11-26 23:49 | disposition home or self-care (01) ==
PROVIDERS: Emergency Provider Student in an Organized Health Care Education/Training Program; PCP Family Medicine; Visit Provider Student in an Organized Health Care Education/Training Program
DX: K56.7 Ileus, unspecified (principal); K76.9 Liver disease, unspecified; R11.0 Nausea; R10.9 Unspecified abdominal pain
CPT/HCPCS: 74177; 80053; 81001; 83690; 85025; 99284; J7030; Q9967; A4216; J2405

== ENCOUNTER 2021-11-28 10:00 | Inpatient (IN) | payer OTHER, SELFPAY ==
[2021-11-28] VITALS (7 sets, daily range): BP systolic 99–105; BP diastolic 59–82; PULSE 77–94; RESP 15–19; TEMP 36.4–37.6; O2SAT 94–97; BMI 22.1; BMI 23.3
--- NOTE | 2021-11-28 10:25 | ED.VIS.GI ---
HPI HPI - GI History of Present Illness Chief Complaint: Abd Pain Informant: patient Narrative Narrative: Patient presents to the ED referral from her PCP today for reevaluation. Seen 2 days ago for abdominal pain and nausea. Symptoms started the day prior. No abdominal surgery history. Had blood work-up CT scan. Reviewed records had CT abdomen pelvis concerning for 2 liver lesions possible hemangiomas. There was some mesenteric stranding and reported possible ileus. She had urine with bacteria however there is no cultures and she denies any urinary symptoms. She was placed on medications by clinical means and a dancer Michael, she has been trying to use this without improvement. Decreased p.o. intake due to nausea. She had diarrhea before coming to the ED 2 days ago no bowel movement since decreased flatus. No history of similar in the past. Denies fevers. She has had colonoscopy 5 years ago as an outpatient. No upper endoscopies in the past. She reports there was more pain 2 days ago when she was evaluated symptoms just persistent since then. Prior similar symptoms: No PFSH PFSH Medical History Spinal stenosis Home Medications ondansetron 4 mg PO Q8H PRN #20 tab 11/26/21 [Rx Last Taken Unknown] diclofenac sodium 75 mg PO DAILY 11/28/21 [History Last Taken Unknown] nortriptyline 50 mg PO DAILY 11/28/21 [History Last Taken Unknown] Allergy/AdvReac Type Severity Reaction Status Date / Time No Known Allergies Allergy Verified 11/26/21 20:40 Social History Smoking Status: Never smoker ROS ROS ED Constitutional Constitutional ED: Denies chills, fever(s) or sweats Eyes Eyes: Denies change in vision ENT ENT ED: Denies dysphagia or sore throat Cardiovascular Cardiovascular: Denies chest pain, leg edema, palpitations or racing heartbeat Respiratory/Chest Respiratory/Chest: Denies cough, dyspnea or dyspnea on exertion Gastrointestinal Gastrointestinal: Reports abdominal pain and nausea; Denies diarrhea or vomiting Genitourinary Genitourinary ED: Denies dysuria, hematuria or urinary frequency Musculoskeletal Musculoskeletal: Denies back pain, extremity pain or neck pain Integumentary Denies rash or wounds Neurologic Neurologic: Denies headache(s), paresthesias or weakness EXAM Physical Exam Const Vital Signs: 11/28/21 10:03 11/28/21 12:01 Temperature 97.6 F L 97.8 F Temperature Source Temporal Temporal Pulse Rate 92 85 Respiratory Rate 15 18 Blood Pressure 103/82 H 105/66 Blood Pressure Mean 89 79 Pulse Ox 97 Oxygen Delivery Method Room Air Positive well nourished and well developed General Appearance ED: well developed and NAD HEENT Reports dry mucous membranes normocephalic and atraumatic Mouth ED: Yes dry mucous membranes Mouth: dry mucous membranes Eyes PERRL, EOMs intact bilaterally and conjunctivae normal General Eye ED: Yes normal appearance of both eyes Neck no lymphadenopathy and supple General: Negative for tenderness Chest Wall Chest: Negative for tenderness Resp normal respiratory effort and normal air movement Effort and Inspection: symmetric chest movement; Negative for respiratory distress Cardio regular rate, regular rhythm and no murmurs Peripheral Pulses: pulses 2+ throughout GI normal to inspection, nondistended, normoactive bowel sounds and non-distended GI Narrative: Generalized tenderness throughout her abdomen. Hypoactive bowel sounds. Palpation: guarding and rebound tenderness present Back/Spine no CVA tenderness and no thoracic nor lumbar tenderness Extremity normal to inspection General Extremety ED: Negative for edema or tenderness General Extremity: Negative for edema Neuro oriented x3 and no sensory deficits noted Sensorium / Orientation: awake and alert Skin no rashes or lesions noted and no wounds MDM MDM MDM Narrative Medical decision making narrative: Patient generalized tenderness reports pain not as significant as 2 days ago. She was given morphine Zofran recheck labs white count at 13.5 creatinine slightly elevated at 1.1 BUN 25 clinical dehydration. She was ordered for a liter of fluids. Lipase LFTs normal. I ordered for abdominal series reviewed by myself and read by radiology concerning for small bowel ileus and noted gastric distention. I reviewed CT images from 2 days ago with the mesenteric stranding with edema. It appeared to have more thickening of the gastric duodenal area. On-call surgeon was available in the department Dr. Kenyon, who reviewed the films, concerns for small bowel etiology. Recommended reCT with delayed oral contrast for further evaluation. Additional liter of fluids with bolus along with continue IV fluids. I did add a lactic acid returned at 1.5. Urine and noted cloudy with leukocytes and slight increased WBCs, she denies urine secondary symptoms culture was sent for further evaluation. She was given additional pain medicines. Discussed with patient will likely require admission after we CT and rediscussion with surgery. 1330: Patient more comfortable at this time mild irritation of her abdomen due to the oral contrast however she kept it down. Awaiting CT scan. 1415: Callback from surgeon Dr. Kenyon who reviewed her oral contrast imagings report definitely thickening of small bowels nondistention of gastrum. She states is concerning for Crohn's disease. She does not see any obstructive findings. She states patient will need likely upper and lower endoscopies as inpatient. She recommended admitting to medicine with GI consult. She can be consulted if needed by medicine service. Patient developed nausea which Zofran was ordered. Fluid is continued. GI and hospitalist service is paged for discussion. 1420: I spoke with GI DrRufina Blackwell updated on patient's history presentation and findings. He will see her as a consult. 1435: Spoke with hospitalist Dr. Canseco for admission. Will bring in observation with bowel prep for planned endoscopies tomorrow per GI. Lab Data Attestation: I reviewed the patient's lab results. Labs: Laboratory Results - last 24 hr 11/28/21 11/28/21 11/28/21 10:15 10:15 11:45 WBC 13.5 H RBC 4.66 Hgb 14.3 Hct 43.2 MCV 92.7 MCH 30.7 MCHC 33.1 RDW Std Deviation 45.7 H RDW Coeff of Ivana 13.4 Plt Count 278 MPV 10.4 Immature Gran % (Auto) 0.600 Neut % (Auto) 93.0 H Lymph % (Auto) 4.2 L [place] % (Auto) 1.3 Eos % (Auto) 0.0 Baso % (Auto) 0.9 Absolute Neuts (auto) 12.5 H Absolute Lymphs (auto) 0.56 L Nucleated RBC % 0 Platelet Estimate ADEQUATE RBC Morphology NORM C+C Sodium 135 L Potassium 4.1 Chloride 101 Carbon Dioxide 27.0 Anion Gap 7 BUN 25 H Creatinine 1.11 H Estim Creat Clear Calc 57.03 Est GFR (MDRD) Af Amer 65 Est GFR (MDRD) Non-Af 53 L BUN/Creatinine Ratio 22.5 H Glucose 126 H Lactic Acid 1.5 Calcium 10.2 H Total Bilirubin 1.20 H Direct Bilirubin 0.29 AST 29 ALT 28 Alkaline Phosphatase 71 Total Protein 8.0 Albumin 3.2 Globulin 4.8 H Lipase 149 Urine Color Urine Clarity Urine pH Ur Specific [place] Urine Protein Urine Glucose (UA) Urine Ketones Urine Occult Blood Urine Nitrite Urine Bilirubin Urine Urobilinogen Ur Leukocyte Esterase Urine RBC Urine WBC Ur Squamous Epith Cells Urine Bacteria Hyaline Casts Urine Mucus 11/28/21 11:53 WBC RBC Hgb Hct MCV MCH MCHC RDW Std Deviation RDW Coeff of Ivana Plt Count MPV Immature Gran % (Auto) Neut % (Auto) Lymph % (Auto) [place] % (Auto) Eos % (Auto) Baso % (Auto) Absolute Neuts (auto) Absolute Lymphs (auto) Nucleated RBC % Platelet Estimate RBC Morphology Sodium Potassium Chloride Carbon Dioxide Anion Gap BUN Creatinine Estim Creat Clear Calc Est GFR (MDRD) Af Amer Est GFR (MDRD) Non-Af BUN/Creatinine Ratio Glucose Lactic Acid Calcium Total Bilirubin Direct Bilirubin AST ALT Alkaline Phosphatase Total Protein Albumin Globulin Lipase Urine Color Yellow Urine Clarity Sl. Cloudy Urine pH 6.0 Ur Specific [place] 1.025 Urine Protein 100 H Urine Glucose (UA) Normal Urine Ketones 15 H Urine Occult Blood 50 H Urine Nitrite Negative Urine Bilirubin Negative Urine Urobilinogen Normal Ur Leukocyte Esterase 100 H Urine RBC 0-5 SEEN Urine WBC 10-25 SEEN Ur Squamous Epith Cells 0-5 SEEN Urine Bacteria 1+ Hyaline Casts 0-5 SEEN Urine Mucus 0 SEEN Radiography Diagnostic Testing: Clinical Impression(s) from Imaging Studies Acute Abdomen Series 11/28/21 11:20 IMPRESSION: Small bowel ileus Electronically Signed: Akil Contreras MD at 12:05 EDT Reading Location ID and State: [address] [place] [address] , Service support , Discharge Plan Triage Chief Complaint: Abd Pain ED Provider: Eugene Lee Dx/Rx/DC Orders Clinical Impression: Ileus, Abdominal pain, Nausea, Dehydration Prescriptions: No Action ondansetron 4 mg tablet,disintegrating 4 mg PO Q8H PRN (Reason: nausea and vomiting) Qty: 20 RF: 0 diclofenac sodium 75 mg tablet,delayed release (DR/EC) 75 mg PO DAILY RF: 0 nortriptyline 50 mg capsule 50 mg PO DAILY RF: 0 Primary Care Provider: Elizabeth Kline Referrals: Elizabeth Kline MD [Primary Care Provider] -
[2021-11-28] MEDS: Morphine 4 MG/ML Syringe IV ×4 (10:29→20:23)
[2021-11-28] MEDS: 0.9% Normal Saline 1,000 ML 1000 ML IV (10:29)
[2021-11-28] MEDS: Ondansetron 4 MG/2 ML Vial IV ×3 (10:29→16:03)
[2021-11-28 10:44] LABS: Absolute Lymphocyte Count 0.56 X10^3/uL (0.83-4.51); Absolute Neutrophil Count 12.5 X10^3/uL (2.0-7.7); Basophil# 0.12 X10^3/uL; Basophil% 0.9 % (0-1); Hematocrit 43.2 % (37-47); Hemoglobin 14.3 g/dL (12.0-15.0); Lymphocyte # 0.56 X10^3/ul (0.83-4.51); Lymphocyte % 4.2 % (19-41); Mean Corp Hgb Conc 33.1 g/dL (32-36); Mean Corpuscular Hgb 30.7 pg (27.0-32.0); Mean Corpuscular Volume 92.7 fL (81-99); Mean Platelet Vol. 10.4 fl (6.2-12.0); Monocyte# 0.18 X10^3/uL; Monocyte% 1.3 % (0-10); NRBC Flagged by Analyzer 0 % (0-5); Neutrophil # 12.53 X10^3/uL (2.7-7.7); POSITIVE DIFFERENTIAL YES; POSITIVE MORPHOLOGY YES; Platelet Count 278 K/mm3 (150-450); RBC Distribution Width CV 13.4 % (11.6-14.6); RBC Distribution Width SD 45.7 fl (35.1-43.9); Red Blood Count 4.66 M/mm3 (4.2-5.4); White Blood Count 13.5 K/mm3 (4.4-11.0)
[2021-11-28 10:51] LABS: Differential Indicated SCAN CRITERIA MET
[2021-11-28 11:00] LABS: AST(SGOT) 29 U/L (15-37); Alanine Aminotransfer ALT/SGPT 28 U/L (13-56); Albumin, Serum 3.2 g/dL (3.2-5.0); Alkaline Phosphatase 71 U/L (45-117); Anion Gap 7 (5-15); BUN 25 mg/dL (7-18); BUN/Creat Ratio 22.5 RATIO (10-20); Bilirubin, Direct 0.29 mg/dL (0.00-0.30); Calcium,Total 10.2 mg/dL (8.5-10.1); Chloride 101 mmol/L (98-107); Creatinine, Serum 1.11 mg/dL (0.55-1.02); EST Glomerular Filtration Rate 53 mL/min (>60); Est Glom Filt Rate - Afr Amer 65 mL/min (>60); Estimated Creatinine Clearance 57.03 ml/min; Globulin 4.8 g/dL (2.2-4.2); Glucose 126 mg/dL (74-106); Lipase 149 U/L (73-393); Potassium 4.1 mmol/L (3.5-5.1); Sodium Level 135 mmol/L (136-145)
[2021-11-28 11:07] LABS: Platelet Estimate ADEQUATE (ADEQ); Red Cell Morphology NORM C+C NORMAL (NORM C&C)
--- NOTE | 2021-11-28 11:20 | RAD_ITS ---
STUDY: X-RAY - ACUTE ABDOMINAL SERIES REASON FOR EXAM: Female, 61 years old. Pain TECHNIQUE: Single view of the chest. Supine, and erect view(s) of the abdomen were obtained. 6 total views obtained COMPARISON: None. FINDINGS: The lungs are clear and expanded. Normal size heart. Normal mediastinum and nicolette. Normal visualized pulmonary arteries. Normal visualized aortic arch and descending thoracic aorta. Nondistended air-fluid levels noted in the stairstepping pattern on the upright film consistent with ileus. The soft tissue structures of the abdomen and pelvis are unremarkable. Normal visualized osseous structures. RAD/Acute Abdomen Inc Chest IMPRESSION: Small bowel ileus Electronically Signed: Akil Contreras MD at 12:05 EDT ,
--- NOTE | 2021-11-28 11:44 | CT_ITS ---
We are attempting to reach an attending provider to discuss findings. An addendum with communication details will be sent when the communication is complete. STUDY: CT ABDOMEN AND PELVIS WITH CONTRAST REASON FOR EXAM: Female, 61 years old. abdominal pain -- delay oral contrast for 2 hours RADIATION DOSAGE (If Supplied By Facility): CTDIvol = ( 10.26 ) mGy, DLP = ( 588.59 ) mGycm TECHNIQUE: Transaxial images were obtained from the dome of the diaphragm to the symphysis pubis with oral contrast. Oral and amp; IV Gastrografin and amp; 100mL Isovue-300 was administered. Sagittal and coronal images were reconstructed. Individualized dose optimization techniques were used for this CT. COMPARISON: 11/26/2021 FINDINGS: Some dependent bibasilar atelectasis. The visualized portions of the heart are within normal limits. Small amount of ascites. 1.5 cm cyst in the anterior segment of the right lobe of the liver. Normal gallbladder and extrahepatic biliary system. 1.2 cm cyst in the medial aspect of the spleen. Normal pancreas. Normal bilateral adrenal glands. Normal right kidney. Normal left kidney. Normal visualized stomach. Normal small intestine. Normal colon. There is some inflammation within the right lower quadrant surrounding a small round diverticulum or possibly appendix with surrounding bubbles of gas which appear extraluminal. Findings are worrisome for microperforation. Normal abdominal aorta. Normal inferior vena cava. Normal retroperitoneum. Normal urinary bladder. Normal abdominal wall. Normal osseous structures. CT/Abdomen/Pelvis WITH Contrast IMPRESSION: Suspected microperforation the right lower quadrant possibly of the appendix or colon. Electronically Signed: Tu Wilcox MD at 14:45 EDT ,
[2021-11-28] MEDS: 0.9% Normal Saline 1,000 ML 999 ML IV (11:57)
[2021-11-28 12:01] LABS: Mucous, Urine 0 SEEN /hpf (<or=2+)
[2021-11-28 12:03] LABS: Color, Urine Yellow (Yellow); Glucose, Dipstick Normal (Normal); Ketone-Dipstick 15 mg/dl (Negative); Leukocyte Esterase-Dipstick 100 /ul (Negative); Nitrite-Dipstick Negative (Negative); Occult Blood-Urine 50 /ul (Negative); Protein-Dipstick 100 mg/dl (Negative); Specific Gravity, Urine 1.025 (1.002-1.030); Urine Bilirubin Dipstick Negative (Negative); Urine Clarity Sl. Cloudy (Clear); Urine Urobilinogen Normal (Normal)
[2021-11-28 12:12] LABS: Bacteria 1+ /hpf (None Seen); Hyaline Cast 0-5 SEEN /lpf (0-5); Red Blood Cells-Urine 0-5 SEEN /hpf (0-5); Squamous Epithelial Cells - UA 0-5 SEEN /hpf (5-10); White Blood Cells 10-25 SEEN /hpf (0-5)
[2021-11-28 12:19] LABS: Lactic Acid 1.5 mmol/L (0.4-1.9)
[2021-11-28] MEDS: 0.9% Normal Saline 1,000 ML 150 ML IV ×2 (12:57→17:39)
--- NOTE | 2021-11-28 15:12 | PCM.HP.STD ---
Documented by User: LEEANN Cerrato 11/28/21 15:24 HPI - General General Date of Admission: 11/28/21 Date of Service: 11/28/21 Chief Complaint: Abdominal pain HPI Narrative ROB YOUNGBLOOD, is a 61 F who presents complaints of abdominal pain, nausea. Patient was seen 2 days ago in the ER when she began having symptoms and the CT showed concern for 2 liver lesions possibly hemangiomas there was also mesenteric stranding and reported possible ileus. Patient was discharged home from the ED with dicyclomine and ondansetron. Patient has been using this at home with no improvement and has had decreased p.o. intake due to her persistent nausea. Patient states that she had diarrhea but for the past 2 days she has not had a bowel movement. [facility] Medical History (Updated 11/28/21 @ 16:[address] Penny Kenyon MD) Fibromyalgia Spinal stenosis Home Medications ondansetron 4 mg PO Q8H PRN #20 tab 11/26/21 [Rx Last Taken 11/28/21] diclofenac sodium 75 mg PO DAILY 11/28/21 [History Last Taken 11/28/21] dicyclomine 10 mg PO TID 11/28/21 [History Last Taken 11/28/21] nortriptyline 50 mg PO DAILY 11/28/21 [History Last Taken 11/25/21] Allergy/AdvReac Type Severity Reaction Status Date / Time No Known Allergies Allergy Verified 11/26/21 20:40 Surgical History (Updated 11/28/21 @ 15:15 by LEEANN Cerrato) S/P cervical spinal fusion Social History Smoking Status: Never smoker ROS Constitutional Constitutional: Reports malaise; Denies anorexia, chills, fatigue, fever(s) or weakness Cardiovascular Cardiovascular: Denies chest pain, edema, palpitations or syncope Respiratory/Chest Respiratory/Chest: Denies cough, shortness of breath at rest, shortness of breath with exertion or wheezing Gastrointestinal Gastrointestinal: Reports abdominal pain, nausea and vomiting; Denies diarrhea Genitourinary Genitourinary: Denies dysuria Musculoskeletal Musculoskeletal: Denies back pain, extremity pain, joint pain or joint stiffness Integumentary Integumentary: Denies dry skin Neurologic Neurologic: Denies abnormal gait, abnormal speech, confusion or dizziness Psychiatric Psychiatric: Denies anxiety or depression Endocrine Endocrinology: Denies change in body appearance Hematologic/Lymphatic Hematologic/Lymphatic: Denies anemia Vital Signs Vital Signs Vital Signs: 11/28/21 10:03 11/28/21 12:01 Temperature 97.6 F L 97.8 F Temperature Source Temporal Temporal Pulse Rate 92 85 Respiratory Rate 15 18 Blood Pressure 103/82 H 105/66 Blood Pressure Mean 89 79 Pulse Ox 97 Oxygen Delivery Method Room Air Weight Weight: 150 lb Body Mass Index (BMI) 22.1 Physical Exam Const alert, oriented x3 and no apparent distress General Appearance: cooperative HEENT normocephalic and head/scalp atraumatic Eyes conjunctivae normal and no scleral icterus Neck supple General: trachea midline Resp normal respiratory effort, normal air movement and clear to auscultation bilaterally Effort and Inspection: able to speak in complete sentences and symmetric chest movement Cardio regular rate, regular rhythm, S1 normal heart sound, S2 normal heart sound and peripheral pulses 2+ throughout GI Auscultation: hypoactive bowel sounds Palpation: soft and tender Extremity normal capillary refill and no clubbing, cyanosis or edema General Extremity: no tenderness to palpation of joints or extremities Skin General Skin Exam: no breakdown and turgor normal Lesions: no lesions Rashes: no rashes Neuro no focal motor deficits and no sensory deficits noted Motor Exam: Negative for general weakness Psych affect normal Psych Narrative: Patient upset as her daughter is getting this weekend in [place] and she is concerned about not making it Results Lab / Micro Data Result Diagrams: 11/28/21 10:15 11/28/21 10:15 Labs: Laboratory Results - last 24 hr 11/28/21 10:15: WBC 13.5 H, RBC 4.66, Hgb 14.3, Hct 43.2, MCV 92.7, MCH 30.7, MCHC 33.1, RDW Std Deviation 45.7 H, RDW Coeff of Ivana 13.4, Plt Count 278, MPV 10.4, Immature Gran % (Auto) 0.600, Neut % (Auto) 93.0 H, Lymph % (Auto) 4.2 L, [place] % (Auto) 1.3, Eos % (Auto) 0.0, Baso % (Auto) 0.9, Absolute Neuts (auto) 12.5 H, Absolute Lymphs (auto) 0.56 L, Nucleated RBC % 0, Platelet Estimate ADEQUATE, RBC Morphology NORM C+C 11/28/21 10:15: Sodium 135 L, Potassium 4.1, Chloride 101, Carbon Dioxide 27.0, Anion Gap 7, BUN 25 H, Creatinine 1.11 H, Estim Creat Clear Calc 57.03, Est GFR (MDRD) Af Amer 65, Est GFR (MDRD) Non-Af 53 L, BUN/Creatinine Ratio 22.5 H, Glucose 126 H, Calcium 10.2 H, Total Bilirubin 1.20 H, Direct Bilirubin 0.29, AST 29, ALT 28, Alkaline Phosphatase 71, Total Protein 8.0, Albumin 3.2, Globulin 4.8 H, Lipase 149 11/28/21 11:45: Lactic Acid 1.5 11/28/21 11:53: Urine Color Yellow, Urine Clarity Sl. Cloudy, Urine pH 6.0, Ur Specific [place] 1.025, Urine Protein 100 H, Urine Glucose (UA) Normal, Urine Ketones 15 H, Urine Occult Blood 50 H, Urine Nitrite Negative, Urine Bilirubin Negative, Urine Urobilinogen Normal, Ur Leukocyte Esterase 100 H, Urine RBC 0-5 SEEN, Urine WBC 10-25 SEEN, Ur Squamous Epith Cells 0-5 SEEN, Urine Bacteria 1+, Hyaline Casts 0-5 SEEN, Urine Mucus 0 SEEN Radiology Impression Acute Abdomen Series 11/28/21 11:20 IMPRESSION: Small bowel ileus Electronically Signed: Akil Contreras MD at 12:05 EDT , Abdomen/Pelvis CT 11/28/21 11:44 IMPRESSION: Suspected microperforation the right lower quadrant possibly of the appendix or colon. Electronically Signed: Tu Wilcox MD at 14:45 EDT , ADDENDUM: 11/28/21 9308 IMPRESSION: Suspected microperforation the right lower quadrant possibly of the appendix or colon. N.B. : The above Results were Read Back by Tu Wilcox MD to Dr Rosa MD, and understanding confirmed on 11/28/2021 14:51:52 (ET). Electronically Signed: Tu Wilcox MD at 14:45 EDT , Assessment & Plan Assessment/Plan (1) Ileus: PLAN: 1. Ileus versus perforation -Admit to [facility] -Radiologist reading CT with contrast as suspected microperforation of the right lower quadrant possibly of the appendix or colon. Dr. Kenyon consulted and will evaluate patient. -GI consulted, case discussed with Dr. Blackwell prior to CT with contrast being read. Will await Dr. Kenyon's evaluation before proceeding with prep for endoscopy. -Patient initiated on Zosyn in ER, will continue -Patient n.p.o. -Normal saline 150 mL/h continued -CBC and CMP daily -IV Zofran ordered for nausea and vomiting and IV morphine ordered for pain control 2. Fibromyalgia -Continue nortriptyline 3. Cervical spinal stenosis -Patient has a history of cervical spinal fusion -Continue diclofenac DVT prophylaxis-SCDs, no pharmacological prophylaxis at this time secondary to surgical evaluation This patient was seen by Radha Mclaughlin NP-C under the supervision of Dr. Canseco. 31 minutes spent in clinical coordination of patient's plan of care. Documented by User: Dr. Gigi Canseco DO 11/28/21 19:34 HPI - General General Date of Admission: 11/28/21 [facility] Medical History (Updated 11/28/21 @ 16:[address] Penny Kenyon MD) Fibromyalgia Spinal stenosis Home Medications ondansetron 4 mg PO Q8H PRN #20 tab 11/26/21 [Rx Last Taken 11/28/21] diclofenac sodium 75 mg PO DAILY 11/28/21 [History Last Taken 11/28/21] dicyclomine 10 mg PO TID 11/28/21 [History Last Taken 11/28/21] nortriptyline 50 mg PO DAILY 11/28/21 [History Last Taken 11/25/21] Allergy/AdvReac Type Severity Reaction Status Date / Time No Known Allergies Allergy Verified 11/26/21 20:40 Surgical History (Updated 11/28/21 @ 15:15 by LEAENN Cerrato) S/P cervical spinal fusion Social History Smoking Status: Never smoker Results Lab / Micro Data Result Diagrams: 11/28/21 10:15 11/28/21 10:15 Charges/Coding Addendum Addendum: Patient was seen and examined today independently of Petrona Mclaughlin, she came to the ER today at [facility] complaining of generalized abdominal pain which started on Saturday of this week. Patient states she had diarrhea that day and she threw up due to abdominal pain. Patient denied any blood in her stool or vomitus. Patient had no complaints of any dysuria or urinary frequency. On examination she appeared her stated age, she does appear to be in mild distress due to abdominal discomfort. Vital signs as documented. Skin warm and dry and without overt rashes. Neck without JVD, thyroid appears normal, trachea is midline, neck is supple. Lungs clear, normal air movement was noted. Heart exam notable for regular rhythm, normal sounds and absence of murmurs, rubs or gallops. Abdomen-abdomen was tympanic and slightly distended, there was abdominal tenderness in all 4 quadrants, there is some rebound abdominal tenderness also noted to be present, bowel sounds were diminished and high-pitched. Extremities nonedematous, no cyanosis was noted, no clubbing was noted. Neuro: Cranial nerves II through XII are grossly intact, no focal motor deficits were noted, sensation to light touch and pinprick is intact, motor exam 5/5 throughout. Psych: Patient is alert and oriented x3, she does not appear anxious or depressed, she does not appear agitated. Cup in the emergency room showed the patient have an elevated white blood cell count at 13.5, creatinine was slightly elevated at 1.11, BUN was 25, bilirubin was 1.2, urinalysis showed +1 bacteria with 10-25 WBCs and 0-[address] of the abdomen and pelvis showed a suspected microperforation in the right lower quadrant possibly of the appendix or colon. Patient was seen by general surgery in the emergency room. Impression: #1 microperforation of the right colon-patient will be admitted to [facility] 3, she will be given IV fluids, IV antibiotics, and seen in consultation by general surgery. #2 fibromyalgia-patient will not be taking diclofenac which she takes at home, she will be given IV pain medicine if needed #3 dehydration-patient will be given IV fluids, labs will be monitored #4 degenerative disc disease of the cervical spine-patient will need to remain off diclofenac at this time I have reviewed Petrona Mclaughlin's history and physical including her medical assessment and plan of care and with the above additions endorse it. Total clinical time spent by myself addressing the patient's medical issues, reviewing the data, and collaborating with the patient's care team: 45 minutes Visit Charges Inpatient E&M: 15177 Init Hosp L3
[2021-11-28 15:45] LABS: International Normalized Ratio 1.3; Prothrombin Time (Protime)PT. 16.3 SECONDS (11.7-14.9)
[2021-11-28 15:46] LABS: Partial Thromboplast Time 29.4 Seconds (24.1-36.2)
--- NOTE | 2021-11-28 16:50 | CON.PCM.SX_ITS ---
Assessment & Plan Assessment/Plan (1) Perforated diverticulum: PLAN: Reviewed CT abdomen pelvis with Dr. Wilcox the radiologist. Do agree that this is likely sigmoid diverticulitis with microperf. Discussed with patient and her would plan for n.p.o. (okay for sips and chips)/IV fluids/IV antibiotics. Discussed with patient plan for conservative management unless increased white blood cell count change in vital signs or increased pain/pain does not improve. May also be getting another CT abdomen pelvis with IV and p.o. contrast in the future. Patient and her are agreeable with plan had no further questions this time. Also discussed with Dr. Martin. Penny Kenyon M.D. Pager: [phone] [facility] [address] [place] [address], [facility], [address] [place] [id number] Office: [phone] HPI Consult Data Date of Consult: 11/28/21 HPI Narrative HPI Narrative: ROB YOUNGBLOOD, is a 61 F who presents to the ER due to diffuse abdominal pain. Patient initially presented to the ER 2 days ago she states in the middle of the night on Saturday she woke up with abdominal pain then by 3 PM/5 PM continued to get worse so she came to the ER. Patient's white blood count was normal at that time and her CT abdomen pelvis read was ileus but did cause some mesenteric stranding. Patient states when she went home she still continued to have abdominal pain 8/10 denies any nausea or vomiting after coming in however she has not eaten anything. Patient repeat CT abdomen pelvis does show some contained loculated small moderate free air possibly perforated sigmoid diverticulum. Patient states she had a colonoscopy 5 years ago?had a polyp at that time due for another repeat shortly. Denies any blood in her stool states she has normal bowel movements. Last bowel movement was diarrhea 2 days ago. Patient's daughter is getting in [place] on Saturday. [facility] Medical History (Updated 11/28/21 @ 16:[address] Penny Kenyon MD) Fibromyalgia Spinal stenosis Home Medications ondansetron 4 mg PO Q8H PRN #20 tab 11/26/21 [Rx Last Taken 11/28/21] diclofenac sodium 75 mg PO DAILY 11/28/21 [History Last Taken 11/28/21] dicyclomine 10 mg PO TID 11/28/21 [History Last Taken 11/28/21] nortriptyline 50 mg PO DAILY 11/28/21 [History Last Taken 11/25/21] Allergy/AdvReac Type Severity Reaction Status Date / Time No Known Allergies Allergy Verified 11/26/21 20:40 Surgical History (Updated 11/28/21 @ 15:15 by LEEANN Cerrato) S/P cervical spinal fusion Social History Smoking Status: Never smoker ROS Constitutional Constitutional: Reports anorexia; Denies chills ENT HEENT: Denies dizziness Cardiovascular Cardiovascular: Denies chest pain Respiratory/Chest Respiratory/Chest: Denies shortness of breath at rest Gastrointestinal Gastrointestinal: Reports abdominal pain, diarrhea, nausea and vomiting; Denies constipation, heartburn, hematemesis or melena Genitourinary Genitourinary: Denies burning urination or dysuria Musculoskeletal Musculoskeletal: Denies joint pain Integumentary Integumentary: Denies rash Neurologic Neurologic: Denies abnormal gait, abnormal hearing, focal weakness, paresthesias or sensory deficit Psychiatric Psychiatric: Denies depression Endocrine Endocrinology: Denies palpitations Hematologic/Lymphatic Hematologic/Lymphatic: Denies anemia, easy bleeding or easy bruising Physical Exam Const alert, oriented x3 and no apparent distress HEENT normocephalic and head/scalp atraumatic Resp normal respiratory effort Cardio regular rate GI soft to palpation and non-distended Inspection: abdominal distention Palpation: tender other (Diffuse tenderness, mild rebound, no guarding); Negative for guarding Extremity no clubbing, cyanosis or edema Neuro CN's II-XII intact bilaterally Psych mental status grossly normal Lab / Micro Data Result Diagrams: 11/28/21 10:15 11/28/21 10:15 Labs: Laboratory Results - last 24 hr 11/28/21 10:15: WBC 13.5 H, RBC 4.66, Hgb 14.3, Hct 43.2, MCV 92.7, MCH 30.7, MCHC 33.1, RDW Std Deviation 45.7 H, RDW Coeff of Ivana 13.4, Plt Count 278, MPV 10.4, Immature Gran % (Auto) 0.600, Neut % (Auto) 93.0 H, Lymph % (Auto) 4.2 L, [place] % (Auto) 1.3, Eos % (Auto) 0.0, Baso % (Auto) 0.9, Absolute Neuts (auto) 12.5 H, Absolute Lymphs (auto) 0.56 L, Nucleated RBC % 0, Platelet Estimate AD EQUATE, RBC Morphology NORM C+C 11/28/21 10:15: Sodium 135 L, Potassium 4.1, Chloride 101, Carbon Dioxide 27.0, Anion Gap 7, BUN 25 H, Creatinine 1.11 H, Estim Creat Clear Calc 57.03, Est GFR (MDRD) Af Amer 65, Est GFR (MDRD) Non-Af 53 L, BUN/Creatinine Ratio 22.5 H, Glucose 126 H, Calcium 10.2 H, Total Bilirubin 1.20 H, Direct Bilirubin 0.29, AST 29, ALT 28, Alkaline Phosphatase 71, Total Protein 8.0, Albumin 3.2, Globulin 4.8 H, Lipase 149 11/28/21 11:45: Lactic Acid 1.5 11/28/21 11:53: Urine Color Yellow, Urine Clarity Sl. Cloudy, Urine pH 6.0, Ur Specific [place] 1.025, Urine Protein 100 H, Urine Glucose (UA) Normal, Urine Ketones 15 H, Urine Occult Blood 50 H, Urine Nitrite Negative, Urine Bilirubin Negative, Urine Urobilinogen Normal, Ur Leukocyte Esterase 100 H, Urine RBC 0-5 SEEN, Urine WBC 10-25 SEEN, Ur Squamous Epith Cells 0-5 SEEN, Urine Bacteria 1+, Hyaline Casts 0-5 SEEN, Urine Mucus 0 SEEN 11/28/21 15:25: PT 16.3 H, INR 1.3, APTT 29.4 Radiology Impression Acute Abdomen Series 11/28/21 11:20 IMPRESSION: Small bowel ileus Electronically Signed: Akil Contreras MD at 12:05 EDT , Abdomen/Pelvis CT 11/28/21 11:44 IMPRESSION: Suspected microperforation the right lower quadrant possibly of the appendix or colon. Electronically Signed: Tu Wilcox MD at 14:45 EDT , ADDENDUM: 11/28/21 1458 IMPRESSION: Suspected microperforation the right lower quadrant possibly of the appendix or colon. N.B. : The above Results were Read Back by Tu Wilcox MD to Dr Rosa MD, and understanding confirmed on 11/28/2021 14:51:52 (ET). Electronically Signed: Tu Wilcox MD at 14:45 EDT , Charges/Coding Visit Charges Inpatient E&M: 18721 Init Hosp L3
[2021-11-28] MEDS: proCHLORPERazine 10 MG/2 ML Vial 5 MG IV (20:23)
[2021-11-28] MEDS: Acetaminophen 325 MG Tablet 650 MG PO (21:16)
[2021-11-28] MEDS: Nortriptyline 25 MG Capsule 50 MG PO (21:17)
[2021-11-28] MEDS: 0.9% Saline Lock 10 ML Syringe IV (21:43)
[2021-11-29] MEDS: 0.9% Normal Saline 1,000 ML 150 ML IV ×4 (00:20→20:53)
[2021-11-29 02:30] VITALS: BP 100/58; PULSE 84; RESP 16; TEMP 38.1; O2SAT 94
[2021-11-29] MEDS: proCHLORPERazine 10 MG/2 ML Vial 5 MG IV (03:42)
[2021-11-29] MEDS: Morphine 4 MG/ML Syringe IV ×2 (03:42→20:14)
[2021-11-29] MEDS: Acetaminophen 325 MG Tablet 650 MG PO (03:54)
[2021-11-29 06:03] LABS: Absolute Lymphocyte Count 0.86 X10^3/uL (0.83-4.51); Basophil# 0.02 X10^3/uL; Basophil% 0.2 % (0-1); Eosinophil# 0.04 X10^3/uL; Eosinophils% 0.5 % (0-5); Hematocrit 31.5 % (37-47); Hemoglobin 10.5 g/dL (12.0-15.0); Lymphocyte # 0.86 X10^3/ul (0.83-4.51); Lymphocyte % 10.5 % (19-41); Mean Corp Hgb Conc 33.3 g/dL (32-36); Mean Corpuscular Hgb 31.1 pg (27.0-32.0); Mean Corpuscular Volume 93.2 fL (81-99); Mean Platelet Vol. 10.6 fl (6.2-12.0); Monocyte# 0.23 X10^3/uL; Monocyte% 2.8 % (0-10); NRBC Flagged by Analyzer 0 % (0-5); Neutrophil # 6.97 X10^3/uL (2.7-7.7); Neutrophil % 85.5 % (47-70); POSITIVE MORPHOLOGY YES; Platelet Count 202 K/mm3 (150-450); RBC Distribution Width CV 13.7 % (11.6-14.6); RBC Distribution Width SD 46.7 fl (35.1-43.9); Red Blood Count 3.38 M/mm3 (4.2-5.4); White Blood Count 8.2 K/mm3 (4.4-11.0)
[2021-11-29 06:05] LABS: Differential Indicated SCAN CRITERIA MET
[2021-11-29 06:20] LABS: Atypical Lymphocyte 1+ %
[2021-11-29 06:35] LABS: ALB/GLOB Ratio 0.6 RATIO (0.9-2.4); AST(SGOT) 63 U/L (15-37); Alanine Aminotransfer ALT/SGPT 71 U/L (13-56); Alkaline Phosphatase 113 U/L (45-117); Anion Gap 6 (5-15); BUN 17 mg/dL (7-18); BUN/Creat Ratio 24.9 RATIO (10-20); Calcium,Total 8.2 mg/dL (8.5-10.1); Chloride 113 mmol/L (98-107); Creatinine, Serum 0.68 mg/dL (0.55-1.02); EST Glomerular Filtration Rate 94 mL/min (>60); Est Glom Filt Rate - Afr Amer 113 mL/min (>60); Estimated Creatinine Clearance 93.09 ml/min; Globulin 3.5 g/dL (2.2-4.2); Glucose 97 mg/dL (74-106); Potassium 3.6 mmol/L (3.5-5.1); Protein, Total 5.5 g/dL (6.4-8.2); Sodium Level 141 mmol/L (136-145)
[2021-11-29 07:59] VITALS: BP 101/63; PULSE 64; RESP 18; TEMP 37; O2SAT 95
--- NOTE | 2021-11-29 08:40 | PCM.PN.SRG ---
Subjective Subjective Patient states her pain is improved. Patient's white blood count is 8.2 down from 13 on IV Zosyn. Objective Data Objective Data Vital Signs: Vital Signs Temp Pulse Resp BP Pulse Ox 98.6 F 64 18 101/63 95 11/29/21 07:59 11/29/21 07:59 11/29/21 07:59 11/29/21 07:59 11/29/21 07:59 Oxygen Delivery Method Room Air Weight: 157 lb 10.088 oz Body Mass Index (BMI) 23.3 Intake & Output: Intake and Output for Last 24 Hours 11/27/21 11/28/21 11/29/21 23:59 23:59 23:59 Intake Total 2792.75 / 2792.75 Balance 2792.75 / 2792.75 Lab / Micro Data Result Diagrams: 11/29/21 05:34 11/29/21 05:34 Labs: Laboratory Results - last 24 hr 11/28/21 10:15: WBC 13.5 H, RBC 4.66, Hgb 14.3, Hct 43.2, MCV 92.7, MCH 30.7, MCHC 33.1, RDW Std Deviation 45.7 H, RDW Coeff of Ivana 13.4, Plt Count 278, MPV 10.4, Immature Gran % (Auto) 0.600, Neut % (Auto) 93.0 H, Lymph % (Auto) 4.2 L, [place] % (Auto) 1.3, Eos % (Auto) 0.0, Baso % (Auto) 0.9, Absolute Neuts (auto) 12.5 H, Absolute Lymphs (auto) 0.56 L, Nucleated RBC % 0, Platelet Estimate ADEQUATE, RBC Morphology NORM C+C 11/28/21 10:15: Sodium 135 L, Potassium 4.1, Chloride 101, Carbon Dioxide 27.0, Anion Gap 7, BUN 25 H, Creatinine 1.11 H, Estim Creat Clear Calc 57.03, Est GFR (MDRD) Af Amer 65, Est GFR (MDRD) Non-Af 53 L, BUN/Creatinine Ratio 22.5 H, Glucose 126 H, Calcium 10.2 H, Total Bilirubin 1.20 H, Direct Bilirubin 0.29, AST 29, ALT 28, Alkaline Phosphatase 71, Total Protein 8.0, Albumin 3.2, Globulin 4.8 H, Lipase 149 11/28/21 11:45: Lactic Acid 1.5 11/28/21 11:53: Urine Color Yellow, Urine Clarity Sl. Cloudy, Urine pH 6.0, Ur Specific [place] 1.025, Urine Protein 100 H, Urine Glucose (UA) Normal, Urine Ketones 15 H, Urine Occult Blood 50 H, Urine Nitrite Negative, Urine Bilirubin Negative, Urine Urobilinogen Normal, Ur Leukocyte Esterase 100 H, Urine RBC 0-5 SEEN, Urine WBC 10-25 SEEN, Ur Squamous Epith Cells 0-5 SEEN, Urine Bacteria 1+, Hyaline Casts 0-5 SEEN, Urine Mucus 0 SEEN 11/28/21 15:25: PT 16.3 H, INR 1.3, APTT 29.4 11/28/21 15:25: Blood Type O POSITIVE, Antibody Screen NEGATIVE 11/29/21 05:34: WBC 8.2, RBC 3.38 L, Hgb 10.5 L, Hct 31.5 L, MCV 93.2, MCH 31.1, MCHC 33.3, RDW Std Deviation 46.7 H, RDW Coeff of Ivana 13.7, Plt Count 202, MPV 10.6, Immature Gran % (Auto) 0.500, Neut % (Auto) 85.5 H, Lymph % (Auto) 10.5 L, [place] % (Auto) 2.8, Eos % (Auto) 0.5, Baso % (Auto) 0.2, Absolute Neuts (auto) 7.0, Absolute Lymphs (auto) 0.86, Nucleated RBC % 0, Atypical Lymphocytes 1+ 11/29/21 05:34: Sodium 141, Potassium 3.6, Chloride 113 H, Carbon Dioxide 22.0, Anion Gap 6, BUN 17, Creatinine 0.68, Estim Creat Clear Calc 93.09, Est GFR (MDRD) Af Amer 113, Est GFR (MDRD) Non-Af 94, BUN/Creatinine Ratio 24.9 H, Glucose 97, Calcium 8.2 L, Total Bilirubin 0.70, AST 63 H, ALT 71 H, Alkaline Phosphatase 113, Total Protein 5.5 L, Albumin 2.0 L, Globulin 3.5, Albumin/Globulin Ratio 0.6 L Radiography Diagnostic Testing: Radiology Impression Acute Abdomen Series 11/28/21 11:20 IMPRESSION: Small bowel ileus Electronically Signed: Akil Contreras MD at 12:05 EDT , Abdomen/Pelvis CT 11/28/21 11:44 IMPRESSION: Suspected microperforation the right lower quadrant possibly of the appendix or colon. Electronically Signed: Tu Wilcox MD at 14:45 EDT , ADDENDUM: 11/28/21 1458 IMPRESSION: Suspected microperforation the right lower quadrant possibly of the appendix or colon. N.B. : The above Results were Read Back by Tu Wilcox MD to Dr Rosa MD, and understanding confirmed on 11/28/2021 14:51:52 (ET). Electronically Signed: Tu Wilcox MD at 14:45 EDT , Physical Exam Const alert, oriented x3 and no apparent distress HEENT normocephalic and head/scalp atraumatic Resp normal respiratory effort Cardio regular rate GI soft to palpation and non-distended Inspection: abdominal distention Palpation: tender RLQ, suprapubic and other ( no guarding or rebound); Negative for guarding Psych mental status grossly normal Assessment & Plan Assessment/Plan (1) Perforated diverticulum: PLAN: Continue sips and chips/n.p.o./IV fluids Continue IV Zosyn Continue pain control Penny Kneyon M.D. Pager: [phone] [facility] [address] [place] [address], [facility], [address] [place] [id number] Office: [phone] Charges/Coding Visit Charges Inpatient E&M: 66941 Subs Hosp L2
--- NOTE | 2021-11-29 09:30 | CASEMGMT ---
RN MAIRA Face to Face with patient for initial transition planning/care coordination assessment. RN CM introduced self and role at [facility]. Patient lying in bed, alert and oriented, at bedside. Patient willing to participate in assessment and is able to answer all questions appropriately. Care providers, pharmacy, and demographics verified. Patient wishes to discharge home, denies need for home health at this time. Patient states she has no further needs or concerns at this time. CM to follow for discharge planning needs that may arise. PCP: Eliud Specialists: none Preferred Pharmacy: [facility] retail at discharge Insurance: MMO Prescription Benefit: yes Living Will/HPOA: none LNOK: Living Arrangements: Patient lives with in a 2 story home. Patient states she is independent and able to ambulate stairs. Transportation: self, DME/HHC: Patient denies DME. Patient denies previous HHC. Patient denies needs at discharge. Disposition Plan: Patient to discharge home with family support and follow-up plans in place. María DE SOUZA, RN, CM
--- NOTE | 2021-11-29 10:25 | PCM.PN.HOSP ---
Documented by User: Radha Mclaughlin NP-Peewee 11/29/21 10:31 Subjective Subjective Patient seen and examined. Patient reports improved symptoms, abdomen fractionating still operator with palpation out however patient has less pain. White blood cell count improved overnight Objective Data Objective Data Vital Signs: Vital Signs Temp Pulse Resp BP Pulse Ox 98.6 F 64 18 101/63 95 11/29/21 07:59 11/29/21 07:59 11/29/21 07:59 11/29/21 07:59 11/29/21 07:59 Oxygen Delivery Method Room Air Weight: 157 lb 10.088 oz Body Mass Index (BMI) 23.3 Intake & Output: Intake and Output for Last 24 Hours 11/27/21 11/28/21 11/29/21 23:59 23:59 23:59 Intake Total 2792.75 / 2792.75 / Balance 2792.75 / 2792.75 / Lab / Micro Data Result Diagrams: 11/29/21 05:34 11/29/21 05:34 Labs: Laboratory Results - last 24 hr 11/28/21 10:15: WBC 13.5 H, RBC 4.66, Hgb 14.3, Hct 43.2, MCV 92.7, MCH 30.7, MCHC 33.1, RDW Std Deviation 45.7 H, RDW Coeff of Ivana 13.4, Plt Count 278, MPV 10.4, Immature Gran % (Auto) 0.600, Neut % (Auto) 93.0 H, Lymph % (Auto) 4.2 L, [place] % (Auto) 1.3, Eos % (Auto) 0.0, Baso % (Auto) 0.9, Absolute Neuts (auto) 12.5 H, Absolute Lymphs (auto) 0.56 L, Nucleated RBC % 0, Platelet Estimate ADEQUATE, RBC Morphology NORM C+C 11/28/21 10:15: Sodium 135 L, Potassium 4.1, Chloride 101, Carbon Dioxide 27.0, Anion Gap 7, BUN 25 H, Creatinine 1.11 H, Estim Creat Clear Calc 57.03, Est GFR (MDRD) Af Amer 65, Est GFR (MDRD) Non-Af 53 L, BUN/Creatinine Ratio 22.5 H, Glucose 126 H, Calcium 10.2 H, Total Bilirubin 1.20 H, Direct Bilirubin 0.29, AST 29, ALT 28, Alkaline Phosphatase 71, Total Protein 8.0, Albumin 3.2, Globulin 4.8 H, Lipase 149 11/28/21 11:45: Lactic Acid 1.5 11/28/21 11:53: Urine Color Yellow, Urine Clarity Sl. Cloudy, Urine pH 6.0, Ur Specific [place] 1.025, Urine Protein 100 H, Urine Glucose (UA) Normal, Urine Ketones 15 H, Urine Occult Blood 50 H, Urine Nitrite Negative, Urine Bilirubin Negative, Urine Urobilinogen Normal, Ur Leukocyte Esterase 100 H, Urine RBC 0-5 SEEN, Urine WBC 10-25 SEEN, Ur Squamous Epith Cells 0-5 SEEN, Urine Bacteria 1+, Hyaline Casts 0-5 SEEN, Urine Mucus 0 SEEN 11/28/21 15:25: PT 16.3 H, INR 1.3, APTT 29.4 11/28/21 15:25: Blood Type O POSITIVE, Antibody Screen NEGATIVE 11/29/21 05:34: WBC 8.2, RBC 3.38 L, Hgb 10.5 L, Hct 31.5 L, MCV 93.2, MCH 31.1, MCHC 33.3, RDW Std Deviation 46.7 H, RDW Coeff of Ivana 13.7, Plt Count 202, MPV 10.6, Immature Gran % (Auto) 0.500, Neut % (Auto) 85.5 H, Lymph % (Auto) 10.5 L, [place] % (Auto) 2.8, Eos % (Auto) 0.5, Baso % (Auto) 0.2, Absolute Neuts (auto) 7.0, Absolute Lymphs (auto) 0.86, Nucleated RBC % 0, Atypical Lymphocytes 1+ 11/29/21 05:34: Sodium 141, Potassium 3.6, Chloride 113 H, Carbon Dioxide 22.0, Anion Gap 6, BUN 17, Creatinine 0.68, Estim Creat Clear Calc 93.09, Est GFR (MDRD) Af Amer 113, Est GFR (MDRD) Non-Af 94, BUN/Creatinine Ratio 24.9 H, Glucose 97, Calcium 8.2 L, Total Bilirubin 0.70, AST 63 H, ALT 71 H, Alkaline Phosphatase 113, Total Protein 5.5 L, Albumin 2.0 L, Globulin 3.5, Albumin/Globulin Ratio 0.6 L Micro: Microbiology 11/28/21 11:53 Urine, Clean Catch Urine Culture - Preliminary Mixed Gram Pos & Gram Neg Org Radiography Diagnostic Testing: Radiology Impression Acute Abdomen Series 11/28/21 11:20 IMPRESSION: Small bowel ileus Electronically Signed: Akil Contreras MD at 12:05 EDT , Abdomen/Pelvis CT 11/28/21 11:44 IMPRESSION: Suspected microperforation the right lower quadrant possibly of the appendix or colon. Electronically Signed: Tu Wilcox MD at 14:45 EDT , ADDENDUM: 11/28/21 1458 IMPRESSION: Suspected microperforation the right lower quadrant possibly of the appendix or colon. N.B. : The above Results were Read Back by Tu Wilcox MD to Dr Rosa MD, and understanding confirmed on 11/28/2021 14:51:52 (ET). Electronically Signed: Tu Wilcox MD at 14:45 EDT , Physical Exam Const alert, oriented x3 and no apparent distress General Appearance: cooperative HEENT normocephalic and head/scalp atraumatic Eyes conjunctivae normal and no scleral icterus Neck supple General: trachea midline Resp normal respiratory effort, normal air movement and clear to auscultation bilaterally Effort and Inspection: able to speak in complete sentences and symmetric chest movement Cardio regular rate, regular rhythm, S1 normal heart sound, S2 normal heart sound and peripheral pulses 2+ throughout GI Auscultation: hypoactive bowel sounds Palpation: soft and tender Extremity normal capillary refill and no clubbing, cyanosis or edema General Extremity: no tenderness to palpation of joints or extremities Skin General Skin Exam: no breakdown and turgor normal Lesions: no lesions Rashes: no rashes Neuro no focal motor deficits and no sensory deficits noted Motor Exam: Negative for general weakness Psych affect normal Psych Narrative: Patient upset as her daughter is getting this weekend in [place] and she is concerned about not making it Assessment & Plan Assessment/Plan (1) Ileus: PLAN: 1. Ileus versus perforation -Radiologist read CT with contrast as suspected microperforation of the right lower quadrant possibly of the appendix or colon. Dr. Kenyon following -Consultation with GI canceled following results of repeat CT -Continue Zosyn -Patient sips and chips only -Normal saline 150 mL/h continued -CBC and CMP daily -IV Zofran ordered for nausea and vomiting and IV morphine ordered for pain control 2. Fibromyalgia -Continue nortriptyline 3. Cervical spinal stenosis -Patient has a history of cervical spinal fusion -Continue diclofenac DVT prophylaxis-SCDs, no pharmacological prophylaxis at this time secondary to surgical evaluation This patient was seen by Radha Mclaughlin, [employer] under the supervision of Dr. Canseco. 12 minutes spent in clinical coordination of patient's plan of care. Documented by User: Dr. Gigi Canseco, 11/29/21 20:08 Objective Data Lab / Micro Data Result Diagrams: 11/29/21 05:34 11/29/21 05:34 Charges/Coding Addendum Addendum: Patient was seen and examined today independently of Petrona Mclaughlin, I also talked with general surgery about her care today. Patient has less abdominal distention and tenderness today, her white count was 8.2 today, she is afebrile this morning although her temperature spiked at 100.5 at 230 this morning. Patient has no complaints of any vomiting or diarrhea. was in the room at the time my examination. On examination she appeared in good health and spirits, she does not appear to be in any distress. Vital signs as documented. Skin warm and dry and without overt rashes. Neck without JVD, thyroid appears normal, trachea is midline, neck is supple. Lungs clear, normal air movement was noted. Heart exam notable for regular rhythm, normal sounds and absence of murmurs, rubs or gallops. Abdomen-there is mild abdominal tenderness to palpation throughout the abdomen, bowel sounds are decreased, patient does not appear distended this morning.. Extremities nonedematous, no cyanosis was noted, no clubbing was noted. Neuro: Cranial nerves II through XII are grossly intact, no focal motor deficits were noted, sensation to light touch and pinprick is intact, motor exam 5/5 throughout. Psych: Patient is alert and oriented x3, she does not appear anxious or depressed, she does not appear agitated. #1 microperforation of the right colon-patient will remain on her current antibiotic coverage, she will continue to receive fluid, Diet at direction of general surgery. #2 fibromyalgia-patient will not be taking diclofenac which she takes at home, she will be given IV pain medicine if needed #3 dehydration-patient will be given IV fluids, labs will be monitored #4 degenerative disc disease of the cervical spine-patient will need to remain off diclofenac at this time I had a long discussion with the patient and her , it seems appropriate that when the patient is released to go home that she take Flagyl and Cipro due to the fact that she will be going to [place] and if she happens to get [place] while there, Cipro would be the appropriate antibiotic to give her. I also warned her that if she got severe diarrhea that was odorous, it could be possible that she would have C. difficile infection-I recommended to general surgery and to the patient and her that she be given a prescription for vancomycin 125 mg capsules and that she take 1- 4 times a day if this happened and not stop her antibiotics that were given to her for her diverticular perforation. I cautioned that she only take the vancomycin if she had severe diarrhea not just loose stools. General surgery is aware of my recommendation. I have reviewed Petrona Mclaughlin's progress note including her medical assessment and plan of care and with the above additions endorse it. Total clinical time spent by myself addressing the patient's medical issues, reviewing the data, and collaborating with the patient's care team: 25 minutes Visit Charges Inpatient E&M: 10894 Subs Hosp L3
[2021-11-29 11:23] VITALS: BP 104/60; PULSE 88; RESP 18; TEMP 37.2; O2SAT 94
[2021-11-29 17:25] VITALS: BP 98/60; PULSE 74; RESP 18; TEMP 36.7; O2SAT 94
[2021-11-29 20:12] VITALS: BP 105/51; PULSE 72; RESP 18; TEMP 36.9; O2SAT 93
[2021-11-29] MEDS: Nortriptyline 25 MG Capsule 50 MG PO (20:14)
[2021-11-29] MEDS: Ondansetron 4 MG/2 ML Vial IV (20:14)
[2021-11-30] VITALS (12 sets, daily range): BP systolic 87–126; BP diastolic 48–81; PULSE 69–90; RESP 16–18; TEMP 36.6–37.2; O2SAT 90–95; BMI 23.3
[2021-11-30] MEDS: 0.9% Normal Saline 1,000 ML 150 ML IV (02:49)
[2021-11-30 06:14] LABS: Absolute Lymphocyte Count 0.75 X10^3/uL (0.83-4.51); Absolute Neutrophil Count 7.4 X10^3/uL (2.0-7.7); Basophil# 0.04 X10^3/uL; Basophil% 0.4 % (0-1); Eosinophil# 0.06 X10^3/uL; Eosinophils% 0.7 % (0-5); Hematocrit 33.7 % (37-47); Hemoglobin 11.2 g/dL (12.0-15.0); Lymphocyte # 0.75 X10^3/ul (0.83-4.51); Lymphocyte % 8.4 % (19-41); Mean Corp Hgb Conc 33.2 g/dL (32-36); Mean Corpuscular Hgb 30.6 pg (27.0-32.0); Mean Corpuscular Volume 92.1 fL (81-99); Mean Platelet Vol. 10.8 fl (6.2-12.0); Monocyte# 0.55 X10^3/uL; Monocyte% 6.2 % (0-10); NRBC Flagged by Analyzer 0 % (0-5); Neutrophil # 7.36 X10^3/uL (2.7-7.7); Neutrophil % 82.5 % (47-70); Platelet Count 237 K/mm3 (150-450); RBC Distribution Width CV 13.8 % (11.6-14.6); RBC Distribution Width SD 46.8 fl (35.1-43.9); Red Blood Count 3.66 M/mm3 (4.2-5.4); White Blood Count 8.9 K/mm3 (4.4-11.0)
[2021-11-30 06:40] LABS: ALB/GLOB Ratio 0.5 RATIO (0.9-2.4); AST(SGOT) 36 U/L (15-37); Alanine Aminotransfer ALT/SGPT 50 U/L (13-56); Albumin, Serum 1.9 g/dL (3.2-5.0); Alkaline Phosphatase 246 U/L (45-117); Anion Gap 12 (5-15); BUN 10 mg/dL (7-18); BUN/Creat Ratio 15.9 RATIO (10-20); Calcium,Total 8.3 mg/dL (8.5-10.1); Chloride 109 mmol/L (98-107); Creatinine, Serum 0.63 mg/dL (0.55-1.02); EST Glomerular Filtration Rate 103 mL/min (>60); Est Glom Filt Rate - Afr Amer 124 mL/min (>60); Estimated Creatinine Clearance 100.48 ml/min; Globulin 3.5 g/dL (2.2-4.2); Glucose 75 mg/dL (74-106); Protein, Total 5.4 g/dL (6.4-8.2); Sodium Level 139 mmol/L (136-145)
--- NOTE | 2021-11-30 08:26 | PN.HOSP_ITS ---
Subjective Subjective Patient is a 61-year-old lady who presented with abdominal pain CT of the abdomen obtained on admission demonstrated suspected microperforation in the right lower quadrant possibly of the appendix or colon. Admitted to regular nursing floor with consultation placed to general surgery. Objective Data Objective Data Vital Signs: Vital Signs Temp Pulse Resp BP Pulse Ox 98.3 F 84 18 126/67 H 92 11/30/21 07:46 11/30/21 07:46 11/30/21 07:46 11/30/21 07:46 11/30/21 07:46 Oxygen Delivery Method Room Air Weight: 71.5 kg Body Mass Index (BMI) 23.3 Intake & Output: Intake and Output for Last 24 Hours 11/28/21 11/29/21 11/30/21 23:59 23:59 23:59 Intake Total 2792.75 / 2792.75 5424.75 / 5424.75 940 / 940 Balance 2792.75 / 2792.75 5424.75 / 5424.75 940 / 940 Lab / Micro Data Result Diagrams: 11/30/21 05:20 11/30/21 05:20 Labs: Laboratory Results - last 24 hr 11/30/21 05:20: WBC 8.9, RBC 3.66 L, Hgb 11.2 L, Hct 33.7 L, MCV 92.1, MCH 30.6, MCHC 33.2, RDW Std Deviation 46.8 H, RDW Coeff of Ivana 13.8, Plt Count 237, MPV 10.8, Immature Gran % (Auto) 1.800 H, Neut % (Auto) 82.5 H, Lymph % (Auto) 8.4 L , [place] % (Auto) 6.2, Eos % (Auto) 0.7, Baso % (Auto) 0.4, Absolute Neuts (auto) 7.4, Absolute Lymphs (auto) 0.75 L, Nucleated RBC % 0 11/30/21 05:20: Sodium 139, Potassium 3.0 L, Chloride 109 H, Carbon Dioxide 18.0 L, Anion Gap 12, BUN 10, Creatinine 0.63, Estim Creat Clear Calc 100.48, Est GFR (MDRD) Af Amer 124, Est GFR (MDRD) Non-Af 103, BUN/Creatinine Ratio 15.9, Glucose 75, Calcium 8.3 L, Total Bilirubin 0.80, AST 36, ALT 50, Alkaline Phosphatase 246 H, Total Protein 5.4 L, Albumin 1.9 L, Globulin 3.5, Albumin/Globulin Ratio 0.5 L Micro: Microbiology 11/28/21 11:53 Urine, Clean Catch Urine Culture - Final Mixed Gram Pos & Gram Neg Org Physical Exam Narrative GENERAL: cooperative HEENT: Atraumatic; EYES; Anicteric, Normal Conjunctiva NECK; supple, normal thyroid, RESPIRATORY: Diminished to auscultation CARDIOVASCULAR: Regular S1 S2, GI: soft, normoactive bowel sounds, RLQ tenderness : No Renal angle tenderness; EXTREMITIES: No edema, no clubbing, MUSCULOSKELETAL: no muscle wasting NEURO: Awake; no lateralizing signs. SKIN: No Rash PSYCH; Flat affect Assessment & Plan Assessment/Plan (1) Ileus: PLAN: Patient is a 61-year-old lady who presented with abdominal pain CT of the abdomen obtained on admission demonstrated suspected microperforation in the right lower quadrant possibly of the appendix or colon. Admitted to regular nursing floor with consultation placed to general surgery. 1. Abdominal pain Secondary to suspected appendicitis. Patient initial CAT scan obtained on admission demonstrated suspected microperforation in the right lower quadrant possibly of the appendix or colon. Case was discussed with Dr. Jarquin from who was of the opinion that patient had perforated appendix. Surgery was therefore advised. 2. Fibromyalgia ? Patient is on nortriptyline continue 3. Cervical spinal stenosis ? With previous history of cervical spine fusion plan is to manage symptomatically 4. Hypokalemia ? Corrected per protocol repeat labs ordered for a.m. for monitoring 5. DVT prophylaxis ? [place] Charges/Coding Visit Charges Inpatient E&M: 67524 Subs Hosp L3
--- NOTE | 2021-11-30 09:33 | PCM.PN.SRG ---
Subjective Subjective Patient reports no change in her pain. Upon going back and reviewing the CT abdomen pelvis does appear that the area that was a diverticulum is likely appendicolith more easily seen on the 11/26 CT abdomen pelvis in coronal's. Objective Data Objective Data Vital Signs: Vital Signs Temp Pulse Resp BP Pulse Ox 98.3 F 84 18 126/67 H 92 11/30/21 07:46 11/30/21 07:46 11/30/21 07:46 11/30/21 07:46 11/30/21 07:46 Oxygen Delivery Method Room Air Weight: 157 lb 10.088 oz Body Mass Index (BMI) 23.3 Intake & Output: Intake and Output for Last 24 Hours 11/28/21 11/29/21 11/30/21 23:59 23:59 23:59 Intake Total 2792.75 / 2792.75 5424.75 / 5424.75 940 / 940 Balance 2792.75 / 2792.75 5424.75 / 5424.75 940 / 940 Lab / Micro Data Result Diagrams: 11/30/21 05:20 11/30/21 05:20 Labs: Laboratory Results - last 24 hr 11/30/21 05:20: WBC 8.9, RBC 3.66 L, Hgb 11.2 L, Hct 33.7 L, MCV 92.1, MCH 30.6, MCHC 33.2, RDW Std Deviation 46.8 H, RDW Coeff of Ivana 13.8, Plt Count 237, MPV 10.8, Immature Gran % (Auto) 1.800 H, Neut % (Auto) 82.5 H, Lymph % (Auto) 8.4 L, [place] % (Auto) 6.2, Eos % (Auto) 0.7, Baso % (Auto) 0.4, Absolute Neuts (auto) 7.4, Absolute Lymphs (auto) 0.75 L, Nucleated RBC % 0 11/30/21 05:20: Sodium 139, Potassium 3.0 L, Chloride 109 H, Carbon Dioxide 18.0 L, Anion Gap 12, BUN 10, Creatinine 0.63, Estim Creat Clear Calc 100.48, Est GFR (MDRD) Af Amer 124, Est GFR (MDRD) Non-Af 103, BUN/Creatinine Ratio 15.9, Glucose 75, Calcium 8.3 L, Total Bilirubin 0.80, AST 36, ALT 50, Alkaline Phosphatase 246 H, Total Protein 5.4 L, Albumin 1.9 L, Globulin 3.5, Albumin/Globulin Ratio 0.5 L Micro: Microbiology 11/28/21 11:53 Urine, Clean Catch Urine Culture - Final Mixed Gram Pos & Gram Neg Org Physical Exam Const alert, oriented x3 and no apparent distress HEENT normocephalic and head/scalp atraumatic Resp normal respiratory effort Cardio regular rate GI soft to palpation and non-distended Inspection: abdominal distention Palpation: tender RLQ, suprapubic and other ( no guarding or rebound); Negative for guarding Psych mental status grossly normal Assessment & Plan Assessment/Plan (1) Perforated appendicitis: PLAN: Discussed with patient and her patient may also require drain placement and could be at high risk for abscess postoperatively as well. Also reviewed CT abdomen pelvis from 11/26 and 11/28 with patient and her . 1. Discussed procedure laparoscopic appendectomy, possible open along with the risk but not limited to bleeding, infection/abscess, injury to another organ (small bowel, colon, etc.), adhesion, hernia at incision sites, and anesthesia. Penny Kenyon M.D. Pager: [phone] [facility] [address] [place] [address], [address] [place] [address] Office: [phone]
--- NOTE | 2021-11-30 09:39 | EKG12_ITS ---
Test Reason : PRE OP Blood Pressure : / mmHG Vent. Rate : 079 BPM Atrial Rate : 079 BPM P-R Int : 140 ms QRS Dur : 084 ms QT Int : 378 ms P-R-T Axes : 034 027 040 degrees QTc Int : 433 ms Normal sinus rhythm with sinus arrhythmia ST abnormality, possible digitalis effect Abnormal ECG No previous ECGs available Confirmed by JANET MONTGOMERY, ANGELA ([id number]), commercial production editor HELADIO BURNHAM ([id number]) on 12/05/2021 1:15:10 PM Referred By: Confirmed By:ANGELA GONZALES MD
--- NOTE | 2021-11-30 09:47 | NURSING ---
Pt taken to surgery via Patrica, OR transporter for appendectomy. at bedside
[2021-11-30] MEDS: Potassium Chloride 10mEq/100mL 10 MEQ/100 ML IV.SOLN. 100 MEQ IV BOLUS (10:28)
[2021-11-30] MEDS: KCL 40mEq in 0.9% NS 40 MEQ/1,000 ML IV.SOLN 250 MEQ IV (10:30)
--- NOTE | 2021-11-30 12:27 | PCM.OPRPT ---
Report of Operation Date of Procedure: 11/30/21 Pre-Operative Diagnosis: Perforated appendicitis Post-Operative Diagnosis: Same Surgery/Procedure Performed:: Laparoscopic appendectomy Surgeon: Penny Kenyon optometric technologist: Tamie Hill Type of Anesthesia: General/Supplemental Anesthesiologist: Marc Noel Special Medications: Zosyn 3.375 g IV Q8 the floor Specimen's removed: Appendix Drains: 15 Dominican RENETTA exiting the left lower quadrant Estimated Blood Loss (mL): 10 cc Description of Procedure: Description of the procedure: The patient was placed on operating table in supine position. General anesthesia was induced. A timeout was completed verifying correct patient, procedure, position and special equipment prior to beginning procedure. Abdomen was prepped and draped in usual sterile fashion. Incision was made in the natural skin line below the umbilicus with a 15 blade scalpel. The fascia was elevated and incised. Entry into the peritoneum was confirmed visually and no bowel was noted in the vicinity of the incision. There is noted to be purulent drainage from the incision site. This was suction. The Bingham trocar was placed under direct vision. Abdomen insufflated with a pressure of 12-15 mmHg. Patient tolerated insertion well. The scope was inserted and the abdomen inspected. No injuries from initial trocar placement were noted. Purulent material was throughout the abdomen which was suctioned. An direct visualization 2 -5 mm trocars were placed one 2 in the left abdomen 1 in the left lower quadrant lateral to the rectus muscle and 1 in the left upper quadrant due to adhesions in the midline. The adhesions were carefully swept down. An additional 5 mm trocar was placed suprapubically. Care is taken to avoid injury to the bladder and inferior epigastric vessels. The table was placed in Trendelenburg position with the right side elevated. The appendix was grasped with atraumatic grasper and elevated. It was noted to be perforated near base and inflamed. A window was developed in the mesoappendix at the point between the base of the appendix and the cecum. An endoscopic 45 mm linear cutting stapler blue load was then used to divide and staple the base of the appendix. Enseal was used to divide the mesoappendix. The appendix was withdrawn into the Bingham trocar after being placed endoscopically retrieval bag. Appendix and appendicolith was sent to pathology. The appendiceal stump was then irrigated and hemostasis was assured. Abdomen irrigated with over 4 L of fluid and suctioned. 15 Dominican round RENETTA was placed in the pelvis exiting the left lower quadrant. Secondary trochars were removed under direct visualization. No bleeding was noted trocar sites. The laparoscope withdrawn and the umbilical trocar removed. The abdomen was allowed to collapse. Local anesthesia of 30 mL of 0.5% Marcaine was used at the incision sites. The umbilical trocar site was closed with the [id number] 0 Vicryl suture. The skin was closed using sutures of 4-0 Monocryl and Steri-Strips, umbilical trocar site skin was closed with loose sutures of interrupted 4-0 Monocryl and Betadine wick placed in the incision.. The patient was extubated. The patient tolerated the procedure well and was taken to the postanesthesia care unit in satisfactory condition. Complications none
[2021-11-30] MEDS: Bupivacaine Mpf 0.5% 30 ML VIAL (12:30)
--- NOTE | 2021-11-30 13:05 | APP_PTH ---
PATIENT: ROB YOUNGBLOOD LOC: MS3 U#:[id number] AGE/SX: 61/F ROOM: IL316 RE11/28/[address]: Dr. Nahun Soliman MD : [id number] BED: 1 DIS: 12/08/2021 SPEC #: [id number] RECD: 11/30/21 13:06 STATUS: GRICELDA CLEMONS #: [id number] VALENTINE: 11/30/21 13:[address]: Penny Kenyon DEPT: SURGICAL PATHOLOGY RECD BY: Sachi Earl ENTERED: 11/30/21 13:49 SP TYPE: APPENDIX OTHR DR: MD Dr. Elijah Lowery MD Dr. Mark Tereletsky, DO Dr. Tamera Robotham, MD Tissues: Appendix, NOS Procedures: Surgery Specimen Level III Comments: @ Ordering doctor for SUIII edited from to @ by PATTI at 11/30/21 1535 @ Submitting doctor edited from to @ by RGOOD at 11/30/21 1535 HEADER OPERATION: Laparoscopic appendectomy PRE-OP DIAGNOSIS: Perforated appendicitis TISSUE SUBMITTED: Appendix MICROSCOPIC DIAGNOSIS Appendix, appendectomy: Acute appendicitis. Acute serositis. AM:farzana 12/01/2021 MICROSCOPIC DESCRIPTION Slides are reviewed. GROSS DESCRIPTION Received in fixative is one container labeled with the patient's name and designated appendix. The specimen consists of a vermiform appendix measuring 9.5 cm in length and 0.8 cm in average diameter. No gross perforations are evident. Serial sections reveal a patent lumen. No mass lesion is identified. Atomic Spectroscopist sections are submitted in two cassettes. / AM:farzana 11/30/2021 TC:2 CPT: 28373
--- NOTE | 2021-11-30 15:12 | CHAPLAIN ---
Type of Pastoral Visit _x__ Initial Visit ___ Follow-up Visit ___ On-call Visit ___ General Patient Visit ___ Spiritual Assessment ___ Family Conference ___ Bereavement ___ Rapid Response ___ Code Blue ___ Other (describe below) Pastoral Care Referral From _x__ Patient ___ Family ___ Nurse ___ Physician ___ Night Clerk Auditor ___ Motor Rebuilder ___ Other (describe below) Sacrament/Intervention _x__ Active listening ___ Anointing ___ Advent ___ Bereavement ___ Communion ___ Zena exploration ___ ___ Life review _x__ Prayer ___ Reconciliation ___ Sacrament of Sick ___ Supportive presence ___ Wedding ___ Other (describe below) Pastoral Comments patient had surgery earlier today and is resting; pt states that since surgery that she is glad for issue to be diagnosed and fixed; pt welcomes a prayer; no other needs
[2021-11-30] MEDS: 0.9% Saline Lock 10 ML Syringe IV ×2 (17:24→21:57)
[2021-11-30] MEDS: Morphine 4 MG/ML Syringe IV ×2 (17:24→21:56)
[2021-11-30] MEDS: 0.9% Normal Saline 1,000 ML 75 ML IV (20:11)
[2021-11-30] MEDS: Nortriptyline 25 MG Capsule 50 MG PO (21:57)
[2021-12-01 02:58] VITALS: BP 100/57; PULSE 59; RESP 18; TEMP 36.4; O2SAT 96
[2021-12-01] MEDS: Morphine 4 MG/ML Syringe IV ×3 (03:07→12:29)
[2021-12-01] MEDS: 0.9% Saline Lock 10 ML Syringe IV (03:07)
[2021-12-01 06:19] LABS: Absolute Lymphocyte Count 1.17 X10^3/uL (0.83-4.51); Absolute Neutrophil Count 10.2 X10^3/uL (2.0-7.7); Basophil# 0.05 X10^3/uL; Basophil% 0.4 % (0-1); Eosinophil# 0.01 X10^3/uL; Eosinophils% 0.1 % (0-5); Hematocrit 34.4 % (37-47); Hemoglobin 11.5 g/dL (12.0-15.0); Lymphocyte # 1.17 X10^3/ul (0.83-4.51); Lymphocyte % 9.1 % (19-41); Mean Corp Hgb Conc 33.4 g/dL (32-36); Mean Corpuscular Hgb 30.3 pg (27.0-32.0); Mean Corpuscular Volume 90.8 fL (81-99); Mean Platelet Vol. 10.1 fl (6.2-12.0); NRBC Flagged by Analyzer 0 % (0-5); Neutrophil # 10.22 X10^3/uL (2.7-7.7); Neutrophil % 79.4 % (47-70); Platelet Count 241 K/mm3 (150-450); RBC Distribution Width CV 13.9 % (11.6-14.6); RBC Distribution Width SD 46.5 fl (35.1-43.9); Red Blood Count 3.79 M/mm3 (4.2-5.4); White Blood Count 12.9 K/mm3 (4.4-11.0)
[2021-12-01 06:43] LABS: ALB/GLOB Ratio 0.5 RATIO (0.9-2.4); AST(SGOT) 23 U/L (15-37); Alanine Aminotransfer ALT/SGPT 34 U/L (13-56); Albumin, Serum 1.7 g/dL (3.2-5.0); Alkaline Phosphatase 162 U/L (45-117); Anion Gap 8 (5-15); BUN 12 mg/dL (7-18); BUN/Creat Ratio 19.4 RATIO (10-20); Calcium,Total 8.5 mg/dL (8.5-10.1); Chloride 108 mmol/L (98-107); Creatinine, Serum 0.62 mg/dL (0.55-1.02); EST Glomerular Filtration Rate 105 mL/min (>60); Est Glom Filt Rate - Afr Amer 126 mL/min (>60); Estimated Creatinine Clearance 98.56 ml/min; Globulin 3.6 g/dL (2.2-4.2); Glucose 123 mg/dL (74-106); Potassium 3.5 mmol/L (3.5-5.1); Protein, Total 5.3 g/dL (6.4-8.2); Sodium Level 139 mmol/L (136-145)
--- NOTE | 2021-12-01 07:33 | PN.HOSP_ITS ---
Subjective Subjective Patient underwent laparoscopic appendectomy by Dr. Jarquin on 11/30/2021 Objective Data Objective Data Vital Signs: Vital Signs Temp Pulse Resp BP Pulse Ox 97.6 F L 59 L 18 100/57 L 96 12/01/21 02:58 12/01/21 02:58 12/01/21 02:58 12/01/21 02:58 12/01/21 02:58 Oxygen Flow Rate (L/min) 3 Oxygen Delivery Method Room Air Weight: 71.5 kg Body Mass Index (BMI) 23.3 Intake & Output: Intake and Output for Last 24 Hours 11/29/21 11/30/21 12/01/21 23:59 23:59 23:59 Intake Total 5424.75 / 5424.75 3240 / 3240 50 / 50 Output Total 1285 / 1285 Balance 5424.75 / 5424.75 1954 / 1954 50 / 50 Lab / Micro Data Result Diagrams: 12/01/21 06:05 12/01/21 06:05 Labs: Laboratory Results - last 24 hr 12/01/21 06:05: WBC 12.9 H, RBC 3.79 L, Hgb 11.5 L, Hct 34.4 L, MCV 90.8, MCH 30.3, MCHC 33.4, RDW Std Deviation 46.5 H, RDW Coeff of Ivana 13.9, Plt Count 241, MPV 10.1, Immature Gran % (Auto) 4.000 H, Neut % (Auto) 79.4 H, Lymph % (Auto) 9.1 L, [place] % (Auto) 7.0, Eos % (Auto) 0.1, Baso % (Auto) 0.4, Absolute Neuts (auto) 10.2 H, Absolute Lymphs (auto) 1.17, Nucleated RBC % 0 12/01/21 06:05: Sodium 139, Potassium 3.5, Chloride 108 H, Carbon Dioxide 23.0, Anion Gap 8, BUN 12, Creatinine 0.62, Estim Creat Clear Calc 98.56, Est GFR (MDRD) Af Amer 126, Est GFR (MDRD) Non-Af 105, BUN/Creatinine Ratio 19.4, Glucose 123 H, Calcium 8.5, Total Bilirubin 0.40, AST 23, ALT 34, Alkaline Phosphatase 162 H, Total Protein 5.3 L, Albumin 1.7 L, Globulin 3.6, Albumin/Globulin Ratio 0.5 L Micro: Microbiology 11/28/21 11:53 Urine, Clean Catch Urine Culture - Final Mixed Gram Pos & Gram Neg Org Physical Exam Narrative GENERAL: cooperative HEENT: Atraumatic; EYES; Anicteric, Normal Conjunctiva NECK; supple, normal thyroid, RESPIRATORY: Diminished to auscultation CARDIOVASCULAR: Regular S1 S2, GI: soft, normoactive bowel sounds, RLQ tenderness, RENETTA drain in place with serous discharge : No Renal angle tenderness; EXTREMITIES: No edema, no clubbing, MUSCULOSKELETAL: no muscle wasting NEURO: Awake; no lateralizing signs. SKIN: No Rash PSYCH; Flat affect Assessment & Plan Assessment/Plan (1) Ileus: PLAN: Patient is a 61-year-old lady who presented with abdominal pain CT of the abdomen obtained on admission demonstrated suspected microperforation in the right lower quadrant possibly of the appendix or colon. Admitted to regular nursing floor with consultation placed to general surgery. 1. Abdominal pain Secondary to suspected appendicitis. Patient initial CAT scan obtained on admission demonstrated suspected microperforation in the right lower quadrant possibly of the appendix or colon. Case was discussed with Dr. Jarquin from who was of the opinion that patient had perforated appendix. Surgery was therefore advised. ? 12/01/2021; patient underwent laparoscopic appendectomy on 11/30/2021. Findings included perforated appendicitis 2. Fibromyalgia ? Patient is on nortriptyline continue 3. Cervical spinal stenosis ? With previous history of cervical spine fusion plan is to manage symptomatically 4. Hypokalemia ? Corrected per protocol repeat labs ordered for a.m. for monitoring 5. DVT prophylaxis ? SC Lovenox Charges/Coding Visit Charges Inpatient E&M: 02550 Subs Hosp L2
--- NOTE | 2021-12-01 08:14 | PCM.PN.SRG ---
Subjective Subjective Patient is doing much better from before surgery. Patient's abdomen still little sore but definitely improved. Patient's RENETTA serous Objective Data Objective Data Vital Signs: Vital Signs Temp Pulse Resp BP Pulse Ox 97.6 F L 59 L 18 100/57 L 96 12/01/21 02:58 12/01/21 02:58 12/01/21 02:58 12/01/21 02:58 12/01/21 02:58 Oxygen Flow Rate (L/min) 3 Oxygen Delivery Method Room Air Weight: 157 lb 10.088 oz Body Mass Index (BMI) 23.3 Intake & Output: Intake and Output for Last 24 Hours 11/29/21 11/30/21 12/01/21 23:59 23:59 23:59 Intake Total 5424.75 / 5424.75 3240 / 3240 50 / 50 Output Total 1285 / 1285 Balance 5424.75 / 5424.75 1955 / 1955 50 / 50 Lab / Micro Data Result Diagrams: 12/01/21 06:05 12/01/21 06:05 Labs: Laboratory Results - last 24 hr 12/01/21 06:05: WBC 12.9 H, RBC 3.79 L, Hgb 11.5 L, Hct 34.4 L, MCV 90.8, MCH 30.3, MCHC 33.4, RDW Std Deviation 46.5 H, RDW Coeff of Ivana 13.9, Plt Count 241, MPV 10.1, Immature Gran % (Auto) 4.000 H, Neut % (Auto) 79.4 H, Lymph % (Auto) 9.1 L, [place] % (Auto) 7.0, Eos % (Auto) 0.1, Baso % (Auto) 0.4, Absolute Neuts (auto) 10.2 H, Absolute Lymphs (auto) 1.17, Nucleated RBC % 0 12/01/21 06:05: Sodium 139, Potassium 3.5, Chloride 108 H, Carbon Dioxide 23.0, Anion Gap 8, BUN 12, Creatinine 0.62, Estim Creat Clear Calc 98.56, Est GFR (MDRD) Af Amer 126, Est GFR (MDRD) Non-Af 105, BUN/Creatinine Ratio 19.4, Glucose 123 H, Calcium 8.5, Total Bilirubin 0.40, AST 23, ALT 34, Alkaline Phosphatase 162 H, Total Protein 5.3 L, Albumin 1.7 L, Globulin 3.6, Albumin/Globulin Ratio 0.5 L Micro: Microbiology 11/28/21 11:53 Urine, Clean Catch Urine Culture - Final Mixed Gram Pos & Gram Neg Org Physical Exam Resp normal respiratory effort Cardio regular rate GI GI Narrative: Abdomen: Soft, nondistended, tender near incision's dressed clean dry and intact, no peritoneal signs, wick from umbilical incision removed and 4 x 4 placed Assessment & Plan Assessment/Plan (1) S/P laparoscopic appendectomy: (2) Perforated appendicitis: PLAN: Patient is day 1 status post laparoscopic appendectomy due to perforated appendicitis. And RENETTA placement N.p.o./IV fluids await bowel function okay for sips and chips. We will plan to advance diet when patient begins to have flatus Continue IV Zosyn Continue ambulation Continue to monitor RENETTA-serous, will plan remove RENETTA prior to discharge Dr. Allred will be covering this weekend. Penny Kenyon M.D. Pager: [phone] [facility] [address] [place] [address], [facility], [address] [place] [address] Office: [phone]
[2021-12-01 08:52] VITALS: BP 109/73; PULSE 60; RESP 16; TEMP 36.4; O2SAT 98
[2021-12-01] MEDS: 0.9% Normal Saline 1,000 ML 75 ML IV (08:59)
[2021-12-01 09:52] VITALS: O2SAT 96
--- NOTE | 2021-12-01 13:54 | EX.PCM.DISCH ---
Discharge Instructions Diet Discharge Diet: Light diet - advance as tolerated Activity Discharge Activity: May Not Drive (while taking narcotic pain medications.) May shower in (days): 1 Lifting Restrictions: no lifting >20 lbs x 2 wks, no strenuous exercise for 4 wks Dressing / Incision Call your doctor if your incision/area has: Continuous Slow Oozing, Sudden Increased Bleeding, Increased Pain/ Swelling, Increased Redness, Foul Smelling Discharge and Swelling at the incision site Call your doctor if you observe: Fever of 101 or Higher Remove Dressing in: 2 days Cleanse incision/area with: Soap & Water Additional Dressing/Incision Instructions:: Steri-Strips will fall off in 7 to 10 days, if they do not fall off okay to remove after 10 days. Follow Up Care Please Follow Up With: Penny Kenyon MD When: Call the office for a follow-up appointment 1-2 weeks; after 5 PM and on the weekends call [phone] with any concerns. Test Results: Test results from this visit will be discussed in further detail at your follow-up appointment, if applicable. Discharge Plan Admission Admit Date/Time: 11/28/21 15:04 Attending Provider: Elijah Ludwig Primary Care Provider: Elizabeth Kline Consulting Providers: Penny Kenyon ; Gigi Canseco Discharge Orders/Prescriptions Prescriptions: New oxycodone-acetaminophen 5-325 mg tablet 1 - 2 tab PO Q6H PRN (Reason: pain) 3 Days Qty: 14 RF: 0 amoxicillin-pot clavulanate 875-125 mg tablet 1 tab PO BID Qty: 10 RF: 0 Continued ondansetron 4 mg tablet,disintegrating 4 mg PO Q8H PRN (Reason: nausea and vomiting) Qty: 20 RF: 0 diclofenac sodium 75 mg tablet,delayed release (DR/EC) 75 mg PO BID RF: 0 nortriptyline 50 mg capsule 50 mg PO DAILY RF: 0 dicyclomine 10 mg capsule 10 mg PO TID RF: 0 Referrals / Follow Up: Elizabeth Kline MD [Primary Care Provider] -
[2021-12-01 14:01] VITALS: BP 111/69; PULSE 67; RESP 16; TEMP 36.6; O2SAT 96
[2021-12-01] MEDS: Acetaminophen 325 MG Tablet 650 MG PO ×2 (14:06→21:02)
[2021-12-01] MEDS: Ketorolac 15 MG/ML Vial IV (16:27)
[2021-12-01 20:46] VITALS: BP 108/67; PULSE 55; RESP 18; TEMP 36.9; O2SAT 98
[2021-12-01] MEDS: 0.9% Normal Saline 1,000 ML 60 ML IV (21:00)
[2021-12-01] MEDS: oxyCODONE 5 MG Tablet PO (21:01)
[2021-12-01] MEDS: Nortriptyline 25 MG Capsule 50 MG PO (21:01)
[2021-12-02 03:36] VITALS: BP 110/61; PULSE 67; RESP 18; TEMP 36.4; O2SAT 93
[2021-12-02] MEDS: Ketorolac 15 MG/ML Vial IV ×3 (05:50→19:02)
[2021-12-02] MEDS: 0.9% Saline Lock 10 ML Syringe IV ×3 (05:50→19:02)
--- NOTE | 2021-12-02 07:14 | PCM.PN.HOSP ---
Subjective Subjective Postoperative day 2 patient complains of intermittent abdominal pain. Patient states having passed some gas this a.m. Objective Data Objective Data Vital Signs: Vital Signs Temp Pulse Resp BP Pulse Ox 97.6 F L 67 18 110/61 93 12/02/21 03:36 12/02/21 03:36 12/02/21 03:36 12/02/21 03:36 12/02/21 03:36 Oxygen Flow Rate (L/min) 3 Oxygen Delivery Method Room Air Weight: 71.5 kg Body Mass Index (BMI) 23.3 Intake & Output: Intake and Output for Last 24 Hours 11/30/21 12/01/21 12/02/21 23:59 23:59 23:59 Intake Total 3240 / 3240 1905.5 / 1905.5 50 / 50 Output Total 1285 / 1285 38 / 38 0 / 0 Balance 1954 / 1954 1867.5 / 1867.5 50 / 50 Lab / Micro Data Result Diagrams: 12/02/21 07:59 12/02/21 07:59 Micro: Microbiology 11/28/21 11:53 Urine, Clean Catch Urine Culture - Final Mixed Gram Pos & Gram Neg Org Physical Exam Narrative GENERAL: cooperative HEENT: Atraumatic; EYES; Anicteric, Normal Conjunctiva NECK; supple, normal thyroid, RESPIRATORY: Diminished to auscultation CARDIOVASCULAR: Regular S1 S2, GI: soft, normoactive bowel sounds, RLQ tenderness, RENETTA drain in place with serous discharge : No Renal angle tenderness; EXTREMITIES: No edema, no clubbing, MUSCULOSKELETAL: no muscle wasting NEURO: Awake; no lateralizing signs. SKIN: No Rash PSYCH; Flat affect Assessment & Plan Assessment/Plan (1) Ileus: PLAN: Patient is a 61-year-old lady who presented with abdominal pain CT of the abdomen obtained on admission demonstrated suspected microperforation in the right lower quadrant possibly of the appendix or colon. Admitted to regular nursing floor with consultation placed to general surgery. 1. Abdominal pain Secondary to suspected appendicitis. Patient initial CAT scan obtained on admission demonstrated suspected microperforation in the right lower quadrant possibly of the appendix or colon. Case was discussed with Dr. Jarquin from who was of the opinion that patient had perforated appendix. Surgery was therefore advised. ? 12/01/2021; patient underwent laparoscopic appendectomy on 11/30/2021. Findings included perforated appendicitis ? 12/02/2021; postoperative day 2 following laparoscopic appendectomy. Patient yet to have return of bowel function. We will continue with current supportive management including pain meds incentive spirometry and DVT prophylaxis 2. Fibromyalgia ? Patient is on nortriptyline continue 3. Cervical spinal stenosis ? With previous history of cervical spine fusion plan is to manage symptomatically 4. Hypokalemia ? Corrected per protocol repeat labs ordered for a.m. for monitoring 5. DVT prophylaxis ? SC Lovenox 6. Hypokalemia ? Corrected per protocol subsequent monitoring with repeat a.m. labs ordered 7. Hypomagnesemia ? Corrected per protocol subsequent monitoring with repeat a.m. labs ordered Charges/Coding Visit Charges Inpatient E&M: 18116 Subs Hosp L2
[2021-12-02 08:05] LABS: Hematocrit 36.7 % (37-47); Hemoglobin 12.2 g/dL (12.0-15.0); Mean Corp Hgb Conc 33.2 g/dL (32-36); Mean Corpuscular Hgb 30.3 pg (27.0-32.0); Mean Corpuscular Volume 91.3 fL (81-99); Mean Platelet Vol. 10.1 fl (6.2-12.0); POSITIVE COUNT YES; POSITIVE MORPHOLOGY YES; Platelet Count 327 K/mm3 (150-450); RBC Distribution Width CV 13.6 % (11.6-14.6); RBC Distribution Width SD 45.9 fl (35.1-43.9); Red Blood Count 4.02 M/mm3 (4.2-5.4); White Blood Count 11.7 K/mm3 (4.4-11.0)
[2021-12-02 08:08] LABS: Differential Indicated MANUAL DIFF
[2021-12-02 08:18] LABS: Anion Gap 8 (5-15); BUN 17 mg/dL (7-18); BUN/Creat Ratio 22.4 RATIO (10-20); Calcium,Total 8.6 mg/dL (8.5-10.1); Chloride 106 mmol/L (98-107); Creatinine, Serum 0.76 mg/dL (0.55-1.02); EST Glomerular Filtration Rate 83 mL/min (>60); Est Glom Filt Rate - Afr Amer 100 mL/min (>60); Glucose 90 mg/dL (74-106); Magnesium 1.6 mg/dL (1.6-2.6); Potassium 2.8 mmol/L (3.5-5.1); Sodium Level 141 mmol/L (136-145)
[2021-12-02 08:40] LABS: Eosinophil 3 % (0-5); Lymphocyte 18 % (19-41); Metamyelocyte 4 % (0-1); Monocyte 3 % (0-10); Myelocyte 3 % (0-0); Neutrophil-Band 2 % (0-5); Neutrophil-Segmented 67 % (47-70); Platelet Estimate ADEQUATE (ADEQ); Red Cell Morphology NORM C+C NORMAL (NORM C&C); Total Cells Counted 100 (MANUAL DIFF)
[2021-12-02 08:42] VITALS: BP 118/65; PULSE 71; RESP 18; TEMP 36.9; O2SAT 96
[2021-12-02] MEDS: Acetaminophen 325 MG Tablet 650 MG PO ×2 (08:58→19:56)
[2021-12-02 09:14] LABS: Absolute Neutrophil Count 8.1 X10^3/uL (2.0-7.7); Neutrophil # 8.07 X10^3/uL (2.7-7.7)
--- NOTE | 2021-12-02 10:16 | PCM.PN.SRG ---
Subjective Subjective Still complaining of a lot of abdominal pain. No bowel function as of yet. Objective Data Objective Data Dressings are dry. RENETTA still with serous sanguinous drainage. Vital Signs: Vital Signs Temp Pulse Resp BP Pulse Ox 98.5 F 71 18 118/65 96 12/02/21 08:42 12/02/21 08:42 12/02/21 08:42 12/02/21 08:42 12/02/21 08:42 Oxygen Flow Rate (L/min) 3 Oxygen Delivery Method Room Air Weight: 157 lb 10.088 oz Body Mass Index (BMI) 23.3 Intake & Output: Intake and Output for Last 24 Hours 11/30/21 12/01/21 12/02/21 23:59 23:59 23:59 Intake Total 3240 / 3240 1905.5 / 1905.5 50 / 50 Output Total 1285 / 1285 38 / 38 30 / 30 Balance 195 / 1954 1867.5 / 1867.5 20 / Lab / Micro Data Result Diagrams: 12/02/21 07:59 12/02/21 07:59 Labs: Laboratory Results - last 24 hr 12/02/21 07:59: WBC 11.7 H, RBC 4.02 L, Hgb 12.2, Hct 36.7 L, MCV 91.3, MCH 30.3, MCHC 33.2, RDW Std Deviation 45.9 H, RDW Coeff of Ivana 13.6, Plt Count 327, MPV 10.1, Neut % (Auto) Not Reportable, Absolute Neuts (auto) 8.1 H, Absolute Lymphs (auto) 2.10, Total Counted 100, Neutrophils % (Manual) 67, Band Neutrophils % 2, Lymphocytes % (Manual) 18 L, Monocytes % (Manual) 3, Eosinophils % (Manual) 3, Metamyelocytes % 4 H, Myelocytes % 3 H, Diff Path Review October, Platelet Estimate ADEQUATE, RBC Morphology NORM C+C 12/02/21 07:59: Sodium 141, Potassium 2.8 L, Chloride 106, Carbon Dioxide 27.0, Anion Gap 8, BUN 17, Creatinine 0.76, Estim Creat Clear Calc 80.40, Est GFR (MDRD) Af Amer 100, Est GFR (MDRD) Non-Af 83, BUN/Creatinine Ratio 22.4 H, Glucose 90, Calcium 8.6, Magnesium 1.6 Micro: Microbiology 11/28/21 11:53 Urine, Clean Catch Urine Culture - Final Mixed Gram Pos & Gram Neg Org Assessment & Plan Assessment/Plan (1) S/P laparoscopic appendectomy: PLAN: Postop day #2. Okay to get in the shower wash around the drainage sites and umbilical site. Await GI function more fully. RENETTA will still remain.
[2021-12-02] MEDS: Potassium Chloride 10mEq/100mL 10 MEQ/100 ML IV.SOLN. 100 MEQ IV BOLUS ×4 (10:23→13:46)
--- NOTE | 2021-12-02 12:21 | NURSING ---
meds from [facility] was brought up to the unit as patient possibly to discharge when they are closed tomorrow. Medications placed in narc drawer fitter med room. primary RN aware
[2021-12-02] MEDS: 0.9% Normal Saline 1,000 ML 60 ML IV (13:44)
[2021-12-02] MEDS: oxyCODONE 5 MG Tablet PO (13:53)
[2021-12-02 16:47] VITALS: BP 111/68; PULSE 73; RESP 18; TEMP 37.1; O2SAT 96
[2021-12-02 19:54] VITALS: BP 137/78; PULSE 68; RESP 18; TEMP 36.7; O2SAT 95
[2021-12-02] MEDS: Nortriptyline 25 MG Capsule 50 MG PO (20:00)
[2021-12-03] VITALS (18 sets, daily range): BP systolic 107–126; BP diastolic 59–82; PULSE 76–106; RESP 16–18; TEMP 36.4–37.4; O2SAT 90–100; BMI 23.3
[2021-12-03] MEDS: oxyCODONE 5 MG Tablet PO ×3 (02:00→11:40)
[2021-12-03] MEDS: 0.9% Normal Saline 1,000 ML 60 ML IV ×2 (05:16→22:00)
[2021-12-03 07:04] LABS: Hemoglobin 11.4 g/dL (12.0-15.0); Mean Corp Hgb Conc 33.5 g/dL (32-36); Mean Corpuscular Hgb 29.9 pg (27.0-32.0); Mean Corpuscular Volume 89.2 fL (81-99); Mean Platelet Vol. 10.1 fl (6.2-12.0); POSITIVE COUNT YES; POSITIVE MORPHOLOGY YES; Platelet Count 357 K/mm3 (150-450); RBC Distribution Width CV 13.3 % (11.6-14.6); RBC Distribution Width SD 43.9 fl (35.1-43.9); Red Blood Count 3.81 M/mm3 (4.2-5.4); White Blood Count 13.8 K/mm3 (4.4-11.0)
[2021-12-03 07:18] LABS: Differential Indicated MANUAL DIFF
--- NOTE | 2021-12-03 07:30 | PCM.PN.HOSP ---
Subjective Subjective Patient seen, complains of intermittent abdominal discomfort. Admitted to passing some gas. Drainage from her RENETTA-tube significantly down. Deferring decision to start patient on oral diet to general surgery Objective Data Objective Data Vital Signs: Vital Signs Temp Pulse Resp BP Pulse Ox 98.8 F 79 18 120/77 92 12/03/21 02:02 12/03/21 02:02 12/03/21 02:02 12/03/21 02:02 12/03/21 02:02 Oxygen Flow Rate (L/min) 3 Oxygen Delivery Method Room Air Weight: 71.5 kg Body Mass Index (BMI) 23.3 Intake & Output: Intake and Output for Last 24 Hours 12/01/21 12/02/21 12/03/21 23:59 23:59 23:59 Intake Total 1905.5 / 1905.5 1654 / 1674 1002 / 1002 Output Total 38 / 38 30 / Balance 1867.5 / 1867.5 1624 / 1634 992 / 992 Lab / Micro Data Result Diagrams: 12/03/21 06:15 12/03/21 06:15 Labs: Laboratory Results - last 24 hr 12/02/21 07:59: WBC 11.7 H, RBC 4.02 L, Hgb 12.2, Hct 36.7 L, MCV 91.3, MCH 30.3, MCHC 33.2, RDW Std Deviation 45.9 H, RDW Coeff of Ivana 13.6, Plt Count 327, MPV 10.1, Neut % (Auto) Not Reportable, Absolute Neuts (auto) 8.1 H, Absolute Lymphs (auto) 2.10, Total Counted 100, Neutrophils % (Manual) 67, Band Neutrophils % 2, Lymphocytes % (Manual) 18 L, Monocytes % (Manual) 3, Eosinophils % (Manual) 3, Metamyelocytes % 4 H, Myelocytes % 3 H, Diff Path Review May , Platelet Estimate ADEQUATE, RBC Morphology NORM C+C 12/02/21 07:59: Sodium 141, Potassium 2.8 L, Chloride 106, Carbon Dioxide 27.0, Anion Gap 8, BUN 17, Creatinine 0.76, Estim Creat Clear Calc 80.40, Est GFR (MDRD) Af Amer 100, Est GFR (MDRD) Non-Af 83, BUN/Creatinine Ratio 22.4 H, Glucose 90, Calcium 8.6, Magnesium 1.6 12/03/21 06:15: WBC 13.8 H, RBC 3.81 L, Hgb 11.4 L, Hct 34.0 L, MCV 89.2, MCH 29.9, MCHC 33.5, RDW Std Deviation 43.9, RDW Coeff of Ivana 13.3, Plt Count 357, MPV 10.1, Neut % (Auto) Not Reportable Micro: Microbiology 11/28/21 11:53 Urine, Clean Catch Urine Culture - Final Mixed Gram Pos & Gram Neg Org Physical Exam Narrative GENERAL: cooperative HEENT: Atraumatic; EYES; Anicteric, Normal Conjunctiva NECK; supple, normal thyroid, RESPIRATORY: Diminished to auscultation CARDIOVASCULAR: Regular S1 S2, GI: soft, normoactive bowel sounds, RLQ tenderness, RENETTA drain in place with serous discharge : No Renal angle tenderness; EXTREMITIES: No edema, no clubbing, MUSCULOSKELETAL: no muscle wasting NEURO: Awake; no lateralizing signs. SKIN: No Rash PSYCH; Flat affect Assessment & Plan Assessment/Plan (1) Ileus: PLAN: Patient is a 61-year-old lady who presented with abdominal pain CT of the abdomen obtained on admission demonstrated suspected microperforation in the right lower quadrant possibly of the appendix or colon. Admitted to regular nursing floor with consultation placed to general surgery. 1. Abdominal pain Secondary to suspected appendicitis. Patient initial CAT scan obtained on admission demonstrated suspected microperforation in the right lower quadrant possibly of the appendix or colon. Case was discussed with Dr. Jarquin from who was of the opinion that patient had perforated appendix. Surgery was therefore advised. ? 12/01/2021; patient underwent laparoscopic appendectomy on 11/30/2021. Findings included perforated appendicitis ? 12/02/2021; postoperative day 2 following laparoscopic appendectomy. Patient yet to have return of bowel function. We will continue with current supportive management including pain meds incentive spirometry and DVT prophylaxis ? 12/03/2021; Patient seen, complains of intermittent abdominal discomfort. Admitted to passing some gas. Drainage from her RENETTA-tube significantly down. Deferring decision to start patient on oral diet to general surgery 2. Fibromyalgia ? Patient is on nortriptyline continue 3. Cervical spinal stenosis ? With previous history of cervical spine fusion plan is to manage symptomatically 4. Hypokalemia ? Corrected per protocol repeat labs ordered for a.m. for monitoring 5. DVT prophylaxis ? SC Lovenox 6. Hypokalemia ? Corrected per protocol subsequent monitoring with repeat a.m. labs ordered -Potassium still low at 2.8 additional potassium given 7. Hypomagnesemia ? Corrected per protocol subsequent monitoring with repeat a.m. labs ordered Charges/Coding Visit Charges Inpatient E&M: 94885 Subs Hosp L2
[2021-12-03] MEDS: 0.9% Saline Lock 10 ML Syringe IV ×2 (07:34→22:37)
[2021-12-03] MEDS: Ondansetron 4 MG/2 ML Vial IV (07:34)
[2021-12-03 07:39] LABS: Eosinophil 1 % (0-5); Lymphocyte 9 % (19-41); Metamyelocyte 3 % (0-1); Monocyte 3 % (0-10); Myelocyte 2 % (0-0); Neutrophil-Band 3 % (0-5); Neutrophil-Segmented 79 % (47-70); Platelet Estimate ADEQUATE (ADEQ); Red Cell Morphology NORM C+C NORMAL (NORM C&C); Total Cells Counted 100 (MANUAL DIFF)
[2021-12-03 07:40] LABS: Absolute Lymphocyte Count 1.23 X10^3/uL (0.83-4.51); Absolute Neutrophil Count 11.2 X10^3/uL (2.0-7.7); Lymphocyte # 1.23 X10^3/ul (0.83-4.51); Neutrophil # 11.23 X10^3/uL (2.7-7.7)
[2021-12-03 07:52] LABS: Anion Gap 13 (5-15); BUN 10 mg/dL (7-18); BUN/Creat Ratio 17.4 RATIO (10-20); Chloride 103 mmol/L (98-107); Creatinine, Serum 0.58 mg/dL (0.55-1.02); EST Glomerular Filtration Rate 114 mL/min (>60); Est Glom Filt Rate - Afr Amer 138 mL/min (>60); Estimated Creatinine Clearance 105.35 ml/min; Glucose 79 mg/dL (74-106); Potassium 2.9 mmol/L (3.5-5.1); Sodium Level 138 mmol/L (136-145)
[2021-12-03] MEDS: Potassium Chloride 10mEq/100mL 10 MEQ/100 ML IV.SOLN. 100 MEQ IV BOLUS ×4 (08:48→12:53)
--- NOTE | 2021-12-03 09:43 | CT_ITS ---
STUDY: CT ABDOMEN AND PELVIS WITH CONTRAST REASON FOR EXAM: Female, 61 years old. Abd pain RADIATION DOSAGE (If Supplied By Facility): CTDIvol = ( 16.91 ) mGy, DLP = ( 1073.36 ) mGycm TECHNIQUE: Transaxial images were obtained from the dome of the diaphragm to the symphysis pubis without oral contrast. IV 75mL Isovue-300 was administered. Sagittal and coronal images were reconstructed. Individualized dose optimization techniques were used for this CT. COMPARISON: November 28, 2021 CT scan abdomen and pelvis FINDINGS: Since the prior study there is been interval development of a left pleural effusion. There is right lower lobe consolidation. The visualized portions of the heart are within normal limits. There is a small cyst in the liver towards the dome of the diaphragm measuring 8.6 mm stable since prior study. Normal gallbladder and extrahepatic biliary system. There is a small cystic structure within the inferior aspect of the spleen stable since prior studies and measures 8.1 mm. Normal pancreas. Normal bilateral adrenal glands. There is mild right pelviectasis. Normal left kidney. There is contrast in the stomach. There is distention of the stomach. There are multiple distended loops of small bowel with air-fluid levels. There is a thickened appearance of the wall of the small bowel within the pelvis. There is a visualized focus of matted appearing bowel within the right lower quadrant compatible with associated tortuous sigmoid colon. There appears to be secondary colitis. There is a left side Que-Oseguera drain with the tip at the level of the right side of the pelvis. Within the right pelvis there is a fluid collection measuring 4.3 x 3.1 cm it was not seen on the prior study November 26, 2021 or. November 28, 2021 appeared to be a small collection now more organized. There is residual dense contrast within the colon likely from a prior procedure. There is perinatal nurse appearing contrast likely from this administration. The appendix is not visualized. This may have been removed and/or potentially ruptured. Normal abdominal aorta. Normal inferior vena cava. There is stranding in the peritoneum. There is edema. There is mesenteric edema. There are visualized small lymph nodes. There is no significant large volume free air. Normal urinary bladder. The uterus is of normal size. There is a few gas bubbles in the bilateral abdominal wall and at the level the umbilicus compatible with recent laparoscopic procedure. There is multilevel degenerative change of the lumbar spine most significant L4-L5 and L5-S1. There is an elliptical focus of fluid in the left upper quadrant measuring 2.4 x 1.4 cm. That is suggestive of a small focus of abscess development not seen on the prior study. CT/Abdomen/Pelvis WITH Contrast IMPRESSION: The patient is postop , with postoperative change right lower quadrant Que-Oseguera drain present likely history of ruptured appendicitis, now status post appendectomy. The visualized postoperative edema. Since prior study there is been interval development of multiple distended loops of small bowel with air-fluid levels suspicious for high-grade postoperative ileus and/or developing partial small bowel obstruction. There is secondary enteritis in the right lower quadrant secondary to inflammatory changes as well as secondary focal colitis of the tortuous redundant loops of colon which appear to migrated and possibly matted or adhesed towards the inflammatory change in the right lower quadrant. There is a new 4.3 x 3.1 cm now well-circumscribed enhancing mass within the right side of the pelvis suspicious for abscess in this setting. This is the drain tip is just anterior to this abscess. See image 102 series 2. Note is made of a elliptical collection measuring 2.4 x 1.1 cm for which a follow-up is warranted. This may represent a focal abscess just at the level of the inferior aspect of the spleen. See image 78 series 601. New right lower lobe atelectasis and/or consolidation. New left pleural effusion. N.B. : The above Results were Read Back by Jane Houston MD to Dr. Brigida MD, and understanding confirmed on 12/03/2021 15:58:02 (ET). Electronically Signed: Jane Houston MD at 16:01 EDT ,
--- NOTE | 2021-12-03 10:39 | PCM.PN.SRG ---
Subjective Subjective No improvement in subjective findings. Still complaining of abdominal pain. No significant GI output. Objective Data Objective Data Her abdomen is soft but is clearly tender. It is diffuse in nature. Vital Signs: Vital Signs Temp Pulse Resp BP Pulse Ox 97.5 F L 78 18 120/72 94 12/03/21 08:16 12/03/21 08:16 12/03/21 08:16 12/03/21 08:16 12/03/21 08:16 Oxygen Flow Rate (L/min) 3 Oxygen Delivery Method Room Air Weight: 157 lb 10.088 oz Body Mass Index (BMI) 23.3 Intake & Output: Intake and Output for Last 24 Hours 12/01/21 12/02/21 12/03/21 23:59 23:59 23:59 Intake Total 1905.5 / 1905.5 1654 / 1674 1402 / 1402 Output Total 38 / 30 / 40 10 / Balance 1867.5 / 1867.5 1624 / 1634 1392 / 1392 Lab / Micro Data Result Diagrams: 12/03/21 06:15 12/03/21 06:15 Labs: Laboratory Results - last 24 hr 12/03/21 06:15: WBC 13.8 H, RBC 3.81 L, Hgb 11.4 L, Hct 34.0 L, MCV 89.2, MCH 29.9, MCHC 33.5, RDW Std Deviation 43.9, RDW Coeff of Ivana 13.3, Plt Count 357, MPV 10.1, Neut % (Auto) Not Reportable, Absolute Neuts (auto) 11.2 H, Absolute Lymphs (auto) 1.23, Total Counted 100, Neutrophils % (Manual) 79 H, Band Neutrophils % 3, Lymphocytes % (Manual) 9 L, Monocytes % (Manual) 3, Eosinophils % (Manual) 1, Metamyelocytes % 3 H, Myelocytes % 2 H, Diff Path Review May , Platelet Estimate ADEQUATE, RBC Morphology NORM C+C 12/03/21 06:15: Sodium 138, Potassium 2.9 L, Chloride 103, Carbon Dioxide 22.0, Anion Gap 13, BUN 10, Creatinine 0.58, Estim Creat Clear Calc 105.35, Est GFR (MDRD) Af Amer 138, Est GFR (MDRD) Non-Af 114, BUN/Creatinine Ratio 17.4, Glucose 79, Calcium 8.0 L Micro: Microbiology 11/28/21 11:53 Urine, Clean Catch Urine Culture - Final Mixed Gram Pos & Gram Neg Org Assessment & Plan Assessment/Plan (1) S/P laparoscopic appendectomy: PLAN: White count is starting to climb slightly. I am going to order a repeat CAT scan of the abdomen and pelvis with IV and p.o. contrast. Patient has had replacement of her potassium.
--- NOTE | 2021-12-03 13:49 | PCM.PN.SRG ---
Subjective Subjective CT scan of the abdomen and pelvis was performed. I do not have the report as of this dictation. Objective Data Objective Data Vital Signs: Vital Signs Temp Pulse Resp BP Pulse Ox 97.5 F L 78 18 120/72 94 12/03/21 08:16 12/03/21 08:16 12/03/21 08:16 12/03/21 08:16 12/03/21 08:16 Oxygen Flow Rate (L/min) 3 Oxygen Delivery Method Room Air Weight: 157 lb 10.088 oz Body Mass Index (BMI) 23.3 Intake & Output: Intake and Output for Last 24 Hours 12/01/21 12/02/21 12/03/21 23:59 23:59 23:59 Intake Total 1905.5 / 1905.5 1654 / 1674 1602 / 1602 Output Total / / Balance 1867.5 / 1867.5 1624 / 1634 1592 / 1592 Lab / Micro Data Result Diagrams: 12/03/21 06:15 12/03/21 06:15 Labs: Laboratory Results - last 24 hr 12/03/21 06:15: WBC 13.8 H, RBC 3.81 L, Hgb 11.4 L, Hct 34.0 L, MCV 89.2, MCH 29.9, MCHC 33.5, RDW Std Deviation 43.9, RDW Coeff of Ivana 13.3, Plt Count 357, MPV 10.1, Neut % (Auto) Not Reportable, Absolute Neuts (auto) 11.2 H, Absolute Lymphs (auto) 1.23, Total Counted 100, Neutrophils % (Manual) 79 H, Band Neutrophils % 3, Lymphocytes % (Manual) 9 L, Monocytes % (Manual) 3, Eosinophils % (Manual) 1, Metamyelocytes % 3 H, Myelocytes % 2 H, Diff Path Review May , Platelet Estimate ADEQUATE, RBC Morphology NORM C+C 12/03/21 06:15: Sodium 138, Potassium 2.9 L, Chloride 103, Carbon Dioxide 22.0, Anion Gap 13, BUN 10, Creatinine 0.58, Estim Creat Clear Calc 105.35, Est GFR (MDRD) Af Amer 138, Est GFR (MDRD) Non-Af 114, BUN/Creatinine Ratio 17.4, Glucose 79, Calcium 8.0 L Micro: Microbiology 11/28/21 11:53 Urine, Clean Catch Urine Culture - Final Mixed Gram Pos & Gram Neg Org Assessment & Plan Assessment/Plan (1) S/P laparoscopic appendectomy: PLAN: I see numerous air bubbles all along the cecum and terminal ileum and there looks like there is an undrained fluid collection in the pelvis. Unfortunately the patient is not getting better. And I believe him that I have to take her to surgery and do an exploratory laparoscopy and more than likely I am going to have to decide what is going to be done to the staple line which I believe is leaking. I discussed with the patient the possibility of doing a limited seek ectomy. I am not a big fan of this procedure I have a feeling that it would lead to just that staple line leaking. I have discussed with her the fact that we may need to do a laparoscopic right hemicolectomy on her so that I could bring good tissue to good tissue and take the staple line completely out of the infected field. It is clear to me she is not can get better without another operation. I have gone over the risk benefits to include bleeding infection possible anastomotic leak. In addition blood clots heart attacks pneumonia strokes up to including unfortunately have been discussed with her. She is willing to proceed.
[2021-12-03] MEDS: Bupivacaine Mpf 0.5% 30 ML VIAL (15:00)
[2021-12-03 15:58] LABS: Hematocrit 34.7 % (37-47); Hemoglobin 11.6 g/dL (12.0-15.0); Mean Corp Hgb Conc 33.4 g/dL (32-36); Mean Corpuscular Hgb 29.8 pg (27.0-32.0); Mean Corpuscular Volume 89.2 fL (81-99); Mean Platelet Vol. 10.2 fl (6.2-12.0); POSITIVE COUNT YES; POSITIVE MORPHOLOGY YES; Platelet Count 367 K/mm3 (150-450); RBC Distribution Width CV 13.3 % (11.6-14.6); Red Blood Count 3.89 M/mm3 (4.2-5.4); White Blood Count 14.7 K/mm3 (4.4-11.0)
[2021-12-03 15:59] LABS: Differential Indicated MANUAL DIFF
[2021-12-03 16:07] LABS: Anion Gap 11 (5-15); BUN 8 mg/dL (7-18); Calcium,Total 8.1 mg/dL (8.5-10.1); Chloride 104 mmol/L (98-107); Creatinine, Serum 0.47 mg/dL (0.55-1.02); EST Glomerular Filtration Rate 144 mL/min (>60); Est Glom Filt Rate - Afr Amer 174 mL/min (>60); Estimated Creatinine Clearance 130.01 ml/min; Glucose 82 mg/dL (74-106); Potassium 3.2 mmol/L (3.5-5.1); Sodium Level 137 mmol/L (136-145)
[2021-12-03 16:30] LABS: Lymphocyte 18 % (19-41); Metamyelocyte 2 % (0-1); Monocyte 7 % (0-10); Neutrophil-Band 3 % (0-5); Neutrophil-Segmented 70 % (47-70); Total Cells Counted 100 (MANUAL DIFF)
--- NOTE | 2021-12-03 16:30 | PCM.OPRPT ---
Problems Associated Problem List Diagnoses (1) Pelvic abscess in female: (2) S/P laparoscopic appendectomy: Report of Operation Date of Procedure: 12/03/21 Pre-Operative Diagnosis: Pelvic abscess, questionable free air around appendiceal stump Post-Operative Diagnosis: Same Surgery/Procedure Performed:: Exploratory laparoscopy and drainage of pelvic abscess Surgeon: Sim Allred airdrop systems technician: Marcelo Hood Type of Anesthesia: General Anesthesiologist: Bernardo José Drains: 15 round Que-Oseguera Estimated Blood Loss (mL): < 25 cc Description of Procedure: Patient was brought into the operating room. Placed in the supine position. Under excellent general anesthetic Shelby catheter was placed her drain was removed. The abdomen was sterilely prepped and draped in the usual fashion. I opened up the previous umbilical incision. Dissected down to the fascia remove the suture in the fascia. Placed a Bingham trocar in the abdomen and insufflated the abdomen to 15 torr. Reopened there suprapubic #5 trocar placed 1 there. And placed a new left lower quadrant #5 trocar. Both of these were placed under direct visualization without injury to underlying structures. Patient had a lot of stuck bowel and intestines with one another. I started where the cecum was remarkably I dissected down and immediately find the suture line and it looks completely normal there was no signs of any succus around it and the tissue around it was remarkably soft. I tediously then remove the sigmoid colon from the terminal ileum and essentially brought the sigmoid colon out of the pelvis and identified where the pelvic abscess was. It was turbid fluid it really was not a true purulent abscess I irrigated this out and sent fluid for culture and sensitivity. I then spent the rest of the time removing all the dense adhesions to the terminal ileum making sure that nothing looks like there was any signs of succus and there was not but there was certainly a significant amount of proteinaceous material in this area. I had spoken to Dr. Eduardo who said that there was a significant amount of proteinaceous material at the time that she took her to surgery for her ruptured appendix. Given this fact and given the fact that I drained the abscess I did not see any other abscesses that were not drained in the small bowel itself looked viable although up with a lot of proteinaceous material and the suture line looked good I decided that doing anything further at this juncture was not prudent. I did not think I needed to put her through a right hemicolectomy and I thought the best thing to do was just replaced a drain in a new position in the right side going down into the pelvis. 5. Trocar was placed in the right side of the abdomen 15 round Que-Oseguera drain was brought through this and sutured to the skin with a 3-0 nylon. I placed this drain all the way deep in the pelvis making sure it was in the cavity of where that undrained abscess was located. I then repositioned the cecum down towards the pelvis area. Trochars were removed under direct visualization good pneumostasis was noted. Fascia the umbilical port was closed with a [id number] stitch of 0 Vicryl. Skin incisions were closed with subcuticular stitches of 4-0 Monocryl. Steri-Strips were applied sterile dressings were applied and the patient tolerated the procedure well. Admit VTE Documentation VTE Present on Admission: No VTE Mechan Device Prophylaxis: SCD's VTE Pharm Prophylaxis ordered?: No Reason prophylaxis not ordered:: Treatment Not Indicated
[2021-12-03 16:32] LABS: Absolute Lymphocyte Count 2.64 X10^3/uL (0.83-4.51); Absolute Neutrophil Count 10.7 X10^3/uL (2.0-7.7)
--- NOTE | 2021-12-03 17:13 | RAD_ITS ---
INDICATION: NG placement -- pt is in pacu EXAMINATION/TECHNIQUE: X-RAY - XR Abdomen 1 View COMPARISON: 12/03/2021 FINDINGS: BOWEL GAS PATTERN: Unchanged small bowel dilatation. NG tube is present with tip at the GE junction. FREE AIR: Not assessed on a single supine view. ORGANOMEGALY: Not seen. CALCIFICATIONS: No abnormal calcifications observed. LOWER CHEST: The lungs are unchanged. BONES AND SOFT TISSUES: No acute pathology. RAD/Abdomen Single View (Portable) IMPRESSION: NG tube is present with tip at the GE junction. Recommend advancement by at least 10 cm. No other changes. Electronically Signed: Lucho Donovan MD at 23:56 EDT ,
--- NOTE | 2021-12-03 17:13 | RAD_ITS ---
INDICATION: Positioning of NG tube positioning of NG tube -- KUB with both diaphragms for NG/OG Verification EXAMINATION/TECHNIQUE: X-RAY - XR Abdomen 1 View COMPARISON: 11/28/2021 FINDINGS: BOWEL GAS PATTERN: Persistent dilatation of the small bowel measuring up to 4.7 cm. NG tube is present with tip in the stomach. FREE AIR: Not assessed on a single supine view. ORGANOMEGALY: Not seen. CALCIFICATIONS: No abnormal calcifications observed. LOWER CHEST: No acute pathology. BONES AND SOFT TISSUES: No acute pathology. RAD/Abdomen Single View (Portable) IMPRESSION: NG tube tip is in the stomach. Persistent dilatation of multiple small bowel loops. Electronically Signed: Lucho Donovan MD at 19:27 EDT ,
[2021-12-03] MEDS: metroNIDAZOLE 500 MG/100 ML BAG 100 MG IV (22:38)
[2021-12-03] MEDS: Nortriptyline 25 MG Capsule 50 MG PO (22:41)
[2021-12-03] MEDS: Morphine 4 MG/ML Syringe IV (22:47)
[2021-12-04 02:29] VITALS: BP 109/72; PULSE 84; RESP 18; TEMP 36.7; O2SAT 94
[2021-12-04] MEDS: Morphine 4 MG/ML Syringe IV ×5 (02:30→22:04)
[2021-12-04] MEDS: 0.9% Saline Lock 10 ML Syringe IV ×5 (02:34→19:36)
[2021-12-04] MEDS: Ketorolac 15 MG/ML Vial IV ×2 (04:10→19:35)
[2021-12-04] MEDS: metroNIDAZOLE 500 MG/100 ML BAG 100 MG IV ×3 (05:51→22:04)
[2021-12-04 06:10] LABS: Hematocrit 34.3 % (37-47); Hemoglobin 11.6 g/dL (12.0-15.0); Mean Corp Hgb Conc 33.8 g/dL (32-36); Mean Corpuscular Hgb 30.7 pg (27.0-32.0); Mean Corpuscular Volume 90.7 fL (81-99); Mean Platelet Vol. 9.6 fl (6.2-12.0); POSITIVE COUNT YES; POSITIVE MORPHOLOGY YES; Platelet Count 391 K/mm3 (150-450); RBC Distribution Width CV 13.7 % (11.6-14.6); RBC Distribution Width SD 45.8 fl (35.1-43.9); Red Blood Count 3.78 M/mm3 (4.2-5.4); White Blood Count 18.3 K/mm3 (4.4-11.0)
[2021-12-04 06:15] LABS: Differential Indicated MANUAL DIFF
[2021-12-04 06:43] LABS: Anion Gap 10 (5-15); BUN 8 mg/dL (7-18); BUN/Creat Ratio 14.4 RATIO (10-20); Calcium,Total 7.8 mg/dL (8.5-10.1); Chloride 106 mmol/L (98-107); Creatinine, Serum 0.56 mg/dL (0.55-1.02); EST Glomerular Filtration Rate 119 mL/min (>60); Est Glom Filt Rate - Afr Amer 144 mL/min (>60); Estimated Creatinine Clearance 109.11 ml/min; Glucose 82 mg/dL (74-106); Potassium 3.3 mmol/L (3.5-5.1); Sodium Level 138 mmol/L (136-145)
--- NOTE | 2021-12-04 07:09 | PN.SURG_ITS ---
Subjective Subjective Complaining of the NG tube hurting the back of her throat. Incisions look clean. Objective Data Objective Data Patient appropriately tender. Dressings are dry. Vital Signs: Vital Signs Temp Pulse Resp BP Pulse Ox 98.1 F 84 18 109/72 94 12/04/21 02:29 12/04/21 02:29 12/04/21 02:29 12/04/21 02:29 12/04/21 02:29 Oxygen Flow Rate (L/min) 2 Oxygen Delivery Method Nasal Cannula Weight: 157 lb 10.088 oz Body Mass Index (BMI) 23.3 Intake & Output: Intake and Output for Last 24 Hours 12/02/21 12/03/21 12/04/21 23:59 23:59 23:59 Intake Total 1654 / 1674 2606.17 / 2786.17 360 / 360 Output Total 30 / 760 / 1500 1540 / 1540 Balance 1624 / 1634 1846.17 / 1286.17 -1180 / -1180 Lab / Micro Data Result Diagrams: 12/04/21 05:56 12/04/21 05:56 Labs: Laboratory Results - last 24 hr 12/03/21 06:15: WBC 13.8 H, RBC 3.81 L, Hgb 11.4 L, Hct 34.0 L, MCV 89.2, MCH 29.9, MCHC 33.5, RDW Std Deviation 43.9, RDW Coeff of Ivana 13.3, Plt Count 357, MPV 10.1, Neut % (Auto) Not Reportable, Absolute Neuts (auto) 11.2 H, Absolute Lymphs (auto) 1.23, Total Counted 100, Neutrophils % (Manual) 79 H, Band Neutrophils % 3, Lymphocytes % (Manual) 9 L, Monocytes % (Manual) 3, Eosinophils % (Manual) 1, Metamyelocytes % 3 H, Myelocytes % 2 H, Diff Path Review October, Platelet Estimate ADEQUATE, RBC Morphology NORM C+C 12/03/21 06:15: Sodium 138, Potassium 2.9 L, Chloride 103, Carbon Dioxide 22.0, Anion Gap 13, BUN 10, Creatinine 0.58, Estim Creat Clear Calc 105.35, Est GFR (MDRD) Af Amer 138, Est GFR (MDRD) Non-Af 114, BUN/Creatinine Ratio 17.4, Glucose 79, Calcium 8.0 L 06/05/22 15:10: WBC 14.7 H, RBC 3.89 L, Hgb 11.6 L, Hct 34.7 L, MCV 89.2, MCH 29.8, MCHC 33.4, RDW Std Deviation 44.0 H, RDW Coeff of Ivana 13.3, Plt Count 367, MPV 10.2, Neut % (Auto) Not Reportable, Absolute Neuts (auto) 10.7 H, Absolute Lymphs (auto) 2.64, Total Counted 100, Neutrophils % (Manual) 70, Band Neutrophils % 3, Lymphocytes % (Manual) 18 L, Monocytes % (Manual) 7, Metamyelocytes % 2 H, Diff Path Review October12/03/21 15:10: Sodium 137, Potassium 3.2 L, Chloride 104, Carbon Dioxide 22.0, Anion Gap 11, BUN 8, Creatinine 0.47 L, Estim Creat Clear Calc 130.01, Est GFR (MDRD) Af Amer 174, Est GFR (MDRD) Non-Af 144, BUN/Creatinine Ratio 17.0, Gluc ose 82, Calcium 8.1 L 12/04/21 05:56: WBC 18.3 H, RBC 3.78 L, Hgb 11.6 L, Hct 34.3 L, MCV 90.7, MCH 30.7, MCHC 33.8, RDW Std Deviation 45.8 H, RDW Coeff of Ivana 13.7, Plt Count 391, MPV 9.6, Neut % (Auto) Not Reportable 12/04/21 05:56: Sodium 138, Potassium 3.3 L, Chloride 106, Carbon Dioxide 22.0, Anion Gap 10, BUN 8, Creatinine 0.56, Estim Creat Clear Calc 109.11, Est GFR (MDRD) Af Amer 144, Est GFR (MDRD) Non-Af 119, BUN/Creatinine Ratio 14.4, Glucose 82, Calcium 7.8 L Micro: Microbiology 11/28/21 11:53 Urine, Clean Catch Urine Culture - Final Mixed Gram Pos & Gram Neg Org Radiography Diagnostic Testing: Radiology Impression Abdomen/Pelvis CT 12/03/21 09:43 IMPRESSION: The patient is postop , with postoperative change right lower quadrant Que-Oseguera drain present likely history of ruptured appendicitis, now status post appendectomy. The visualized postoperative edema. Since prior study there is been interval development of multiple distended loops of small bowel with air-fluid levels suspicious for high-grade postoperative ileus and/or developing partial small bowel obstruction. There is secondary enteritis in the right lower quadrant secondary to inflammatory changes as well as secondary focal colitis of the tortuous redundant loops of colon which appear to migrated and possibly matted or adhesed towards the inflammatory change in the right lower quadrant. There is a new 4.3 x 3.1 cm now well-circumscribed enhancing mass within the right side of the pelvis suspicious for abscess in this setting. This is the drain tip is just anterior to this abscess. See image 102 series 2. Note is made of a elliptical collection measuring 2.4 x 1.1 cm for which a follow-up is warranted. This may represent a focal abscess just at the level of the inferior aspect of the spleen. See image 78 series 601. New right lower lobe atelectasis and/or consolidation. New left pleural effusion. N.B. : The above Results were Read Back by Jane Houston MD to Dr. Brigida MD, and understanding confirmed on 12/03/2021 15:58:02 (ET). Electronically Signed: Jane Houston MD at 16:01 EDT , KUB X-Ray 12/03/21 17:13 IMPRESSION: NG tube is present with tip at the GE junction. Recommend advancement by at least 10 cm. No other changes. Electronically Signed: Lucho Donovan MD at 23:56 EDT , KUB X-Ray 12/03/21 17:13 IMPRESSION: NG tube tip is in the stomach. Persistent dilatation of multiple small bowel loops. Electronically Signed: Lucho Donovan MD at 19:27 EDT , Assessment & Plan Assessment/Plan (1) Pelvic abscess in female: PLAN: Postoperative day #1 status post exploratory laparoscopy and drain age of abscess. Will DC Shelby catheter today. Await GI function. Once passed flatus can remove NG tube
[2021-12-04 07:14] LABS: Platelet Estimate ADEQUATE (ADEQ)
[2021-12-04 07:15] LABS: Red Cell Morphology NORM C+C NORMAL (NORM C&C)
[2021-12-04 07:17] LABS: Absolute Lymphocyte Count 1.83 X10^3/uL (0.83-4.51); Absolute Neutrophil Count 15.2 X10^3/uL (2.0-7.7)
[2021-12-04 07:18] LABS: Lymphocyte 10 % (19-41); Metamyelocyte 1 % (0-1); Monocyte 4 % (0-10); Myelocyte 2 % (0-0); Neutrophil-Segmented 83 % (47-70); Total Cells Counted 100 (MANUAL DIFF)
[2021-12-04 08:01] LABS: Magnesium 1.6 mg/dL (1.6-2.6); Phosphorus 3.3 mg/dL (2.5-4.9)
[2021-12-04 08:30] VITALS: BP 108/75; PULSE 81; RESP 16; TEMP 36.9; O2SAT 92
[2021-12-04] MEDS: Phenol/Sodium Phenolate 180ML 3 SPRAY MUCOUS MEM (11:27)
--- NOTE | 2021-12-04 12:36 | PN.HOSP_ITS ---
Subjective Subjective Doing okay overnight, has some irritation from the NG tube. Will provide some Chloraseptic spray. We will continue to encourage ambulation and getting out of bed to help facilitate return of bowel function Objective Data Objective Data Vital Signs: Vital Signs Temp Pulse Resp BP Pulse Ox 98.4 F 81 16 108/75 92 12/04/21 08:30 12/04/21 08:30 12/04/21 08:30 12/04/21 08:30 12/04/21 08:30 Oxygen Flow Rate (L/min) 2 Oxygen Delivery Method Room Air Weight: 157 lb 10.088 oz Body Mass Index (BMI) 23.3 Intake & Output: Intake and Output for Last 24 Hours 12/03/21 12/04/21 12/05/21 03:59 03:59 03:59 Intake Total 1674 / 1674 2816.17 / 2816.17 360 / 360 Output Total 40 / 40 1490 / 1490 865 / 865 Balance 1634 / 1634 1326.17 / 1326.17 -505 / -505 Lab / Micro Data Result Diagrams: 12/04/21 05:56 12/04/21 05:56 Labs: Laboratory Results - last 24 hr 12/03/21 15:10: WBC 14.7 H, RBC 3.89 L, Hgb 11.6 L, Hct 34.7 L, MCV 89.2, MCH 29.8, MCHC 33.4, RDW Std Deviation 44.0 H, RDW Coeff of Ivana 13.3, Plt Count 367, MPV 10.2, Neut % (Auto) Not Reportable, Absolute Neuts (auto) 10.7 H, Absolute Lymphs (auto) 2.64, Total Counted 100, Neutrophils % (Manual) 70, Band N eutrophils % 3, Lymphocytes % (Manual) 18 L, Monocytes % (Manual) 7, Metamyelocytes % 2 H, Diff Path Review October12/03/21 15:10: Sodium 137, Potassium 3.2 L, Chloride 104, Carbon Dioxide 22.0, Anion Gap 11, BUN 8, Creatinine 0.47 L, Estim Creat Clear Calc 130.01, Est GFR (MDRD) Af Amer 174, Est GFR (MDRD) Non-Af 144, BUN/Creatinine Ratio 17.0, Glucose 82, Calcium 8.1 L 12/04/21 05:56: WBC 18.3 H, RBC 3.78 L, Hgb 11.6 L, Hct 34.3 L, MCV 90.7, MCH 30.7, MCHC 33.8, RDW Std Deviation 45.8 H, RDW Coeff of Ivana 13.7, Plt Count 391, MPV 9.6, Neut % (Auto) Not Reportable, Absolute Neuts (auto) 15.2 H, Absolute Lymphs (auto) 1.83, Total Counted 100, Neutrophils % (Manual) 83 H, Lymphocytes % (Manual) 10 L, Monocytes % (Manual) 4, Metamyelocytes % 1, Myelocytes % 2 H, Diff Path Review October, Platelet Estimate ADEQUATE, RBC Morphology NORM C+C 12/04/21 05:56: Sodium 138, Potassium 3.3 L, Chloride 106, Carbon Dioxide 22.0, Anion Gap 10, BUN 8, Creatinine 0.56, Estim Creat Clear Calc 109.11, Est GFR (MDRD) Af Amer 144, Est GFR (MDRD) Non-Af 119, BUN/Creatinine Ratio 14.4, Gluc ose 82, Calcium 7.8 L 12/04/21 05:56: Phosphorus 3.3, Magnesium 1.6 Micro: Microbiology 12/03/21 15:25 Wound - Other Gram Stain - Final 12/03/21 15:25 Wound - Other Wound Culture - Preliminary No growth-Final to follow 11/28/21 11:53 Urine, Clean Catch Urine Culture - Final Mixed Gram Pos & Gram Neg Org Radiography Diagnostic Testing: Radiology Impression Abdomen/Pelvis CT 12/03/21 09:43 IMPRESSION: The patient is postop , with postoperative change right lower quadrant Que-Oseguera drain present likely history of ruptured appendicitis, now status post appendectomy. The visualized postoperative edema. Since prior study there is been interval development of multiple distended loops of small bowel with air-fluid levels suspicious for high-grade postoperative ileus and/or developing partial small bowel obstruction. There is secondary enteritis in the right lower quadrant secondary to inflammatory changes as well as secondary focal colitis of the tortuous redundant loops of colon which appear to migrated and possibly matted or adhesed towards the inflammatory change in the right lower quadrant. There is a new 4.3 x 3.1 cm now well-circumscribed enhancing mass within the right side of the pelvis suspicious for abscess in this setting. This is the drain tip is just anterior to this abscess. See image 102 series 2. Note is made of a elliptical collection measuring 2.4 x 1.1 cm for which a follow-up is warranted. This may represent a focal abscess just at the level of the inferior aspect of the spleen. See image 78 series 601. New right lower lobe atelectasis and/or consolidation. New left pleural effusion. N.B. : The above Results were Read Back by Jane Houston MD to Dr. Brigida MD, and understanding confirmed on 12/03/2021 15:58:02 (ET). Electronically Signed: Jane Houston MD at 16:01 EDT , KUB X-Ray 12/03/21 17:13 IMPRESSION: NG tube is present with tip at the GE junction. Recommend advancement by at least 10 cm. No other changes. Electronically Signed: Lucho Donovan MD at 23:56 EDT , KUB X-Ray 12/03/21 17:13 IMPRESSION: NG tube tip is in the stomach. Persistent dilatation of multiple small bowel loops. Electronically Signed: Lucho Donovan MD at 19:27 EDT , Physical Exam Const alert, oriented x3 and no apparent distress Constitutional Narrative: NG tube in place General Appearance: cooperative HEENT normocephalic and moist oral mucous membranes Eyes PERRL, EOMs intact bilaterally and conjunctivae normal Neck supple and no JVD Resp normal respiratory effort, no retractions and no use of accessory muscles Auscultation: Negative for crackles, rales, rhonchi or wheezes Cardio regular rate, regular rhythm, S1 normal heart sound, S2 normal heart sound and no murmurs GI soft to palpation and non-distended; Negative for hepatosplenomegaly Palpation: tender Extremity no clubbing, cyanosis or edema Skin no rashes or lesions noted Neuro no focal motor deficits and no sensory deficits noted Psych affect normal Appearance: appropriate Assessment & Plan Assessment/Plan (1) Ileus: PLAN: 1. Abdominal pain Secondary to suspected appendicitis. Patient initial CAT scan obtained on admission demonstrated suspected microperforation in the right lower quadrant possibly of the appendix or colon. Case was discussed with Dr. Jarquin from who was of the opinion that patient had perforated appendix. Surgery was therefore advised. ? 12/01/2021; patient underwent laparoscopic appendectomy on 11/30/2021. Findings included perforated appendicitis ? 12/02/2021; postoperative day 2 following laparoscopic appendectomy. Patient yet to have return of bowel function. We will continue with current supportive management including pain meds incentive spirometry and DVT prophylaxis ? 12/03/2021; Patient seen, complains of intermittent abdominal discomfort. Admitted to passing some gas. Drainage from her RENETTA-tube significantly down. Deferring decision to start patient on oral diet to general surgery ? 12/04/2021: Doing well today, still with some NG tube output without any GI function. Will provide Chloraseptic spray for the pain and irritation caused by the NG tube. Will encourage getting out of bed and ambulation for return of bowel function 2. Fibromyalgia ? Patient is on nortriptyline continue 3. Cervical spinal stenosis ? With previous history of cervical spine fusion plan is to manage symptomatically DVT: [place] Charges/Coding Visit Charges Inpatient E&M: 01581 Subs Hosp L2
[2021-12-04 13:30] VITALS: BP 117/68; PULSE 85; RESP 16; TEMP 36.5; O2SAT 96
[2021-12-04 13:35] LABS: Pathologist Review Reviewed
[2021-12-04 13:37] LABS: Pathologist Review Reviewed
[2021-12-04] MEDS: Potassium Chloride 10mEq/100mL 10 MEQ/100 ML IV.SOLN. 100 MEQ IV BOLUS ×4 (14:40→18:04)
[2021-12-04] MEDS: 0.9% Normal Saline 1,000 ML 60 ML IV (18:04)
[2021-12-04 18:15] VITALS: BP 124/77; PULSE 78; RESP 16; TEMP 36.9; O2SAT 92
[2021-12-04 21:57] VITALS: BP 118/83; PULSE 84; RESP 18; TEMP 36.5; O2SAT 95
[2021-12-04] MEDS: Nortriptyline 25 MG Capsule 50 MG PO (22:11)
[2021-12-05] VITALS (7 sets, daily range): BP systolic 114–127; BP diastolic 64–77; PULSE 75–84; RESP 16–18; TEMP 36.4–37.2; O2SAT 94–100
[2021-12-05 06:30] LABS: Absolute Lymphocyte Count 1.45 X10^3/uL (0.83-4.51); Absolute Neutrophil Count 11.6 X10^3/uL (2.0-7.7); Basophil# 0.09 X10^3/uL; Basophil% 0.6 % (0-1); Eosinophil# 0.26 X10^3/uL; Eosinophils% 1.8 % (0-5); Hematocrit 32.6 % (37-47); Hemoglobin 11.1 g/dL (12.0-15.0); Lymphocyte # 1.45 X10^3/ul (0.83-4.51); Lymphocyte % 9.8 % (19-41); Mean Corpuscular Volume 91.1 fL (81-99); Mean Platelet Vol. 9.9 fl (6.2-12.0); Monocyte# 0.72 X10^3/uL; Monocyte% 4.9 % (0-10); NRBC Flagged by Analyzer 0 % (0-5); Neutrophil # 11.59 X10^3/uL (2.7-7.7); Neutrophil % 78.2 % (47-70); Platelet Count 451 K/mm3 (150-450); RBC Distribution Width CV 13.8 % (11.6-14.6); RBC Distribution Width SD 46.4 fl (35.1-43.9); Red Blood Count 3.58 M/mm3 (4.2-5.4); White Blood Count 14.8 K/mm3 (4.4-11.0)
[2021-12-05] MEDS: metroNIDAZOLE 500 MG/100 ML BAG 100 MG IV ×3 (06:32→21:38)
[2021-12-05] MEDS: Acetaminophen 325 MG Tablet 650 MG PO (06:41)
[2021-12-05 06:56] LABS: Anion Gap 9 (5-15); BUN 7 mg/dL (7-18); Calcium,Total 8.2 mg/dL (8.5-10.1); Chloride 104 mmol/L (98-107); EST Glomerular Filtration Rate 134 mL/min (>60); Est Glom Filt Rate - Afr Amer 162 mL/min (>60); Estimated Creatinine Clearance 122.21 ml/min; Glucose 85 mg/dL (74-106); Potassium 3.4 mmol/L (3.5-5.1); Sodium Level 137 mmol/L (136-145)
--- NOTE | 2021-12-05 07:24 | NURSING ---
Flagyl is currently infusing. When Flagyl is finished, Zosyn will need to be given.
[2021-12-05] MEDS: Morphine 4 MG/ML Syringe IV ×2 (07:58→18:03)
--- NOTE | 2021-12-05 09:48 | PN.HOSP_ITS ---
Subjective Subjective Doing well feels little bit better today, she was able to ambulate this morning and she did have some flatus. Her sore throat has improved with the Chloraseptic spray Objective Data Objective Data Vital Signs: Vital Signs Temp Pulse Resp BP Pulse Ox 97.5 F L 81 16 120/77 94 12/05/21 08:22 12/05/21 08:22 12/05/21 08:22 12/05/21 08:22 12/05/21 08:22 Oxygen Flow Rate (L/min) 2 Oxygen Delivery Method Room Air Weight: 157 lb 10.088 oz Body Mass Index (BMI) 23.3 Intake & Output: Intake and Output for Last 24 Hours 12/04/21 12/05/21 12/06/21 03:59 03:59 03:59 Intake Total 2816.17 / 2816.17 2364 / 2444 260 / 260 Output Total 1490 / 1490 2425 / 2425 575 / 575 Balance 1326.17 / 1326.17 -61 / 19 -315 / -315 Lab / Micro Data Result Diagrams: 12/05/21 05:48 12/05/21 05:48 Labs: Laboratory Results - last 24 hr 12/02/21 07:59: Diff Path Review Reviewed 12/03/21 06:15: Diff Path Review Reviewed 12/05/21 05:48: WBC 14.8 H, RBC 3.58 L, Hgb 11.1 L, Hct 32.6 L, MCV 91.1, MCH 31.0, MCHC 34.0, RDW Std Deviation 46.4 H, RDW Coeff of Ivana 13.8, Plt Count 451 H, MPV 9.9, Immature Gran % (Auto) 4.700 H, Neut % (Auto) 78.2 H, Lymph % (Auto) 9.8 L, [place] % (Auto) 4.9, Eos % (Auto) 1.8, Baso % (Auto) 0.6, Absolute Neuts (auto) 11.6 H, Absolute Lymphs (auto) 1.45, Nucleated RBC % 0 12/05/21 05:48: Sodium 137, Potassium 3.4 L, Chloride 104, Carbon Dioxide 24.0, Anion Gap 9, BUN 7, Creatinine 0.50 L, Estim Creat Clear Calc 122.21, Est GFR (MDRD) Af Amer 162, Est GFR (MDRD) Non-Af 134, BUN/Creatinine Ratio 14.0, Glucose 85, Calcium 8.2 L Micro: Microbiology 12/03/21 15:25 Wound - Other Gram Stain - Final 12/03/21 15:25 Wound - Other Wound Culture - Preliminary No growth-Final to follow 11/28/21 11:53 Urine, Clean Catch Urine Culture - Final Mixed Gram Pos & Gram Neg Org Physical Exam Const alert, oriented x3 and no apparent distress Constitutional Narrative: NG tube in place General Appearance: cooperative HEENT normocephalic and moist oral mucous membranes Eyes PERRL, EOMs intact bilaterally and conjunctivae normal Neck supple and no JVD Resp normal respiratory effort, no retractions and no use of accessory muscles Auscultation: Negative for crackles, rales, rhonchi or wheezes Cardio regular rate, regular rhythm, S1 normal heart sound, S2 normal heart sound and no murmurs GI soft to palpation and non-distended; Negative for hepatosplenomegaly Extremity no clubbing, cyanosis or edema Skin no rashes or lesions noted Neuro no focal motor deficits and no sensory deficits noted Psych affect normal Appearance: appropriate Assessment & Plan Assessment/Plan (1) Ileus: PLAN: 1. Abdominal pain Secondary to suspected appendicitis. Patient initial CAT scan obtained on admission demonstrated suspected microperforation in the right lower quadrant possibly of the appendix or colon. Case was discussed with Dr. Jarquin from who was of the opinion that patient had perforated appendix. Surgery was therefore advised. ? 12/01/2021; patient underwent laparoscopic appendectomy on 11/30/2021. Findings included perforated appendicitis ? 12/02/2021; postoperative day 2 following laparoscopic appendectomy. Patient yet to have return of bowel function. We will continue with current supportive management including pain meds incentive spirometry and DVT prophylaxis ? 12/03/2021; Patient seen, complains of intermittent abdominal discomfort. Admitted to passing some gas. Drainage from her RENETTA-tube significantly down. Deferring decision to start patient on oral diet to general surgery ? 12/04/2021: Doing well today, still with some NG tube output without any GI function. Will provide Chloraseptic spray for the pain and irritation caused by the NG tube. Will encourage getting out of bed and ambulation for return of bowel function ? 12/05/2021: She has had flatus today, will await evaluation by surgery hopefully can remove NG tube and start on slow diet titration 2. Fibromyalgia ? Patient is on nortriptyline continue 3. Cervical spinal stenosis ? With previous history of cervical spine fusion plan is to manage sympto matically DVT: Lyricnox Charges/Coding Visit Charges Inpatient E&M: 35363 Subs Hosp L2
[2021-12-05] MEDS: Potassium Chloride 10mEq/100mL 10 MEQ/100 ML IV.SOLN. 100 MEQ IV BOLUS (10:53)
[2021-12-05] MEDS: 0.9% Normal Saline 1,000 ML 60 ML IV (11:01)
--- NOTE | 2021-12-05 11:05 | NURSING ---
dc'ed iv
--- NOTE | 2021-12-05 11:13 | PCM.PN.SRG ---
Subjective Subjective Patient states that she is passing flatus. Her pain has improved. Objective Data Objective Data Abdomen is soft and appropriately tender. No rebound guarding or peritoneal signs are identified. Vital Signs: Vital Signs Temp Pulse Resp BP Pulse Ox 97.5 F L 81 16 120/77 94 12/05/21 08:22 12/05/21 08:22 12/05/21 08:22 12/05/21 08:22 12/05/21 08:22 Oxygen Flow Rate (L/min) 2 Oxygen Delivery Method Room Air Weight: 157 lb 10.088 oz Body Mass Index (BMI) 23.3 Intake & Output: Intake and Output for Last 24 Hours 12/03/21 12/04/21 12/05/21 23:59 23:59 23:59 Intake Total 2606.17 / 2786.17 2514 / 2644 1390 / 1390 Output Total 760 / 1500 2415 / 3165 1325 / 1325 Balance 1846.17 / 1286.17 99 / -521 65 / 65 Lab / Micro Data Result Diagrams: 12/05/21 05:48 12/05/21 05:48 Labs: Laboratory Results - last 24 hr 12/02/21 07:59: Diff Path Review Reviewed 12/03/21 06:15: Diff Path Review Reviewed 12/05/21 05:48: WBC 14.8 H, RBC 3.58 L, Hgb 11.1 L, Hct 32.6 L, MCV 91.1, MCH 31.0, MCHC 34.0, RDW Std Deviation 46.4 H, RDW Coeff of Ivana 13.8, Plt Count 451 H, MPV 9.9, Immature Gran % (Auto) 4.700 H, Neut % (Auto) 78.2 H, Lymph % (Auto) 9.8 L, [place] % (Auto) 4.9, Eos % (Auto) 1.8, Baso % (Auto) 0.6, Absolute Neuts (auto) 11.6 H, Absolute Lymphs (auto) 1.45, Nucleated RBC % 0 12/05/21 05:48: Sodium 137, Potassium 3.4 L, Chloride 104, Carbon Dioxide 24.0, Anion Gap 9, BUN 7, Creatinine 0.50 L, Estim Creat Clear Calc 122.21, Est GFR (MDRD) Af Amer 162, Est GFR (MDRD) Non-Af 134, BUN/Creatinine Ratio 14.0, Glucose 85, Calcium 8.2 L Micro: Microbiology 12/03/21 15:25 Wound - Other Gram Stain - Final 12/03/21 15:25 Wound - Other Wound Culture - Preliminary No growth-Final to follow 11/28/21 11:53 Urine, Clean Catch Urine Culture - Final Mixed Gram Pos & Gram Neg Org Assessment & Plan Assessment/Plan (1) Pelvic abscess in female: PLAN: Patient is improving. We will remove the NG tube today. She will not be able to be discharged until she has a bowel movement. White count is coming down appropriately I am not going to change her antibiotics at this time.
[2021-12-05] MEDS: Potassium Chloride 10mEq/100mL 10 MEQ/100 ML IV.SOLN. 75 MEQ IV BOLUS ×3 (12:29→15:38)
[2021-12-05 13:08] LABS: Pathologist Review Reviewed
[2021-12-05 13:10] LABS: Pathologist Review Reviewed
[2021-12-05] MEDS: oxyCODONE 5 MG Tablet PO ×2 (14:01→19:58)
[2021-12-05] MEDS: Ondansetron 4 MG/2 ML Vial IV (18:03)
[2021-12-05] MEDS: Nortriptyline 25 MG Capsule 50 MG PO (19:59)
[2021-12-06 03:00] VITALS: BP 111/70; PULSE 77; RESP 16; TEMP 36.9; O2SAT 93
[2021-12-06] MEDS: metroNIDAZOLE 500 MG/100 ML BAG 100 MG IV ×3 (05:35→21:05)
[2021-12-06 06:44] LABS: Absolute Lymphocyte Count 1.66 X10^3/uL (0.83-4.51); Absolute Neutrophil Count 10.6 X10^3/uL (2.0-7.7); Basophil# 0.08 X10^3/uL; Basophil% 0.6 % (0-1); Eosinophil# 0.27 X10^3/uL; Hematocrit 35.4 % (37-47); Hemoglobin 11.6 g/dL (12.0-15.0); Lymphocyte # 1.66 X10^3/ul (0.83-4.51); Mean Corp Hgb Conc 32.8 g/dL (32-36); Mean Corpuscular Hgb 30.1 pg (27.0-32.0); Mean Corpuscular Volume 91.7 fL (81-99); Mean Platelet Vol. 9.6 fl (6.2-12.0); Monocyte# 0.74 X10^3/uL; Monocyte% 5.3 % (0-10); NRBC Flagged by Analyzer 0 % (0-5); Neutrophil # 10.56 X10^3/uL (2.7-7.7); Neutrophil % 76.3 % (47-70); Platelet Count 580 K/mm3 (150-450); RBC Distribution Width CV 13.9 % (11.6-14.6); Red Blood Count 3.86 M/mm3 (4.2-5.4); White Blood Count 13.8 K/mm3 (4.4-11.0)
[2021-12-06 07:05] LABS: Anion Gap 10 (5-15); BUN 7 mg/dL (7-18); BUN/Creat Ratio 12.3 RATIO (10-20); Calcium,Total 8.3 mg/dL (8.5-10.1); Chloride 100 mmol/L (98-107); Creatinine, Serum 0.57 mg/dL (0.55-1.02); EST Glomerular Filtration Rate 115 mL/min (>60); Est Glom Filt Rate - Afr Amer 139 mL/min (>60); Glucose 82 mg/dL (74-106); Potassium 3.3 mmol/L (3.5-5.1); Sodium Level 137 mmol/L (136-145)
[2021-12-06] MEDS: Ondansetron 4 MG/2 ML Vial IV ×2 (08:37→15:15)
[2021-12-06] MEDS: Morphine 4 MG/ML Syringe IV ×3 (08:38→21:12)
[2021-12-06 08:58] VITALS: O2SAT 94
[2021-12-06 09:03] VITALS: BP 132/77; PULSE 79; RESP 16; TEMP 36.7; O2SAT 94
--- NOTE | 2021-12-06 10:46 | PCM.PN.HOSP ---
Subjective Subjective Tenderness is improving, NG tube was removed yesterday and she was started on some ice chips hopefully she can be advanced today. She is still having flatus and is much more active getting out of bed and sitting in the chair and walking around the floor Objective Data Objective Data Vital Signs: Vital Signs Temp Pulse Resp BP Pulse Ox 98.1 F 79 16 132/77 H 94 12/06/21 09:03 12/06/21 09:03 12/06/21 09:03 12/06/21 09:03 12/06/21 09:03 Oxygen Flow Rate (L/min) 2 Oxygen Delivery Method Room Air Weight: 157 lb 10.088 oz Body Mass Index (BMI) 23.3 Intake & Output: Intake and Output for Last 24 Hours 12/05/21 12/06/21 12/07/21 03:59 03:59 03:59 Intake Total 2364 / 2444 2060.00 / 2060.00 915.00 / 915.00 Output Total 2425 / 2425 1120 / 1120 Balance - / 940.00 / 940.00 905.00 / 905.00 Lab / Micro Data Result Diagrams: 12/06/21 06:00 12/06/21 06:00 Labs: Laboratory Results - last 24 hr 12/03/21 15:10: Diff Path Review Reviewed 12/04/21 05:56: Diff Path Review Reviewed 12/06/21 06:00: WBC 13.8 H, RBC 3.86 L, Hgb 11.6 L, Hct 35.4 L, MCV 91.7, MCH 30.1, MCHC 32.8, RDW Std Deviation 47.0 H, RDW Coeff of Ivana 13.9, Plt Count 580 H, MPV 9.6, Immature Gran % (Auto) 3.800 H, Neut % (Auto) 76.3 H, Lymph % (Auto) 12.0 L, [place] % (Auto) 5.3, Eos % (Auto) 2.0, Baso % (Auto) 0.6, Absolute Neuts (auto) 10.6 H, Absolute Lymphs (auto) 1.66, Nucleated RBC % 0 12/06/21 06:00: Sodium 137, Potassium 3.3 L, Chloride 100, Carbon Dioxide 27.0, Anion Gap 10, BUN 7, Creatinine 0.57, Estim Creat Clear Calc 107.20, Est GFR (MDRD) Af Amer 139, Est GFR (MDRD) Non-Af 115, BUN/Creatinine Ratio 12.3, Glucose 82, Calcium 8.3 L Micro: Microbiology 12/03/21 15:25 Wound - Other Gram Stain - Final 12/03/21 15:25 Wound - Other Wound Culture - Final No growth aerobically. 12/03/21 15:25 Wound - Other Anaerobic Culture - Preliminary 11/28/21 11:53 Urine, Clean Catch Urine Culture - Final Mixed Gram Pos & Gram Neg Org Physical Exam Const alert, oriented x3 and no apparent distress General Appearance: cooperative HEENT normocephalic and moist oral mucous membranes Eyes PERRL, EOMs intact bilaterally and conjunctivae normal Neck supple and no JVD Resp normal respiratory effort, no retractions and no use of accessory muscles Auscultation: Negative for crackles, rales, rhonchi or wheezes Cardio regular rate, regular rhythm, S1 normal heart sound, S2 normal heart sound and no murmurs GI soft to palpation and non-distended; Negative for hepatosplenomegaly Palpation: tender Extremity no clubbing, cyanosis or edema Skin no rashes or lesions noted Neuro no focal motor deficits and no sensory deficits noted Psych affect normal Appearance: appropriate Assessment & Plan Assessment/Plan (1) Ileus: PLAN: 1. Abdominal pain Secondary to suspected appendicitis. Patient initial CAT scan obtained on admission demonstrated suspected microperforation in the right lower quadrant possibly of the appendix or colon. Case was discussed with Dr. Jarquin from who was of the opinion that patient had perforated appendix. Surgery was therefore advised. ? 12/01/2021; patient underwent laparoscopic appendectomy on 11/30/2021. Findings included perforated appendicitis ? 12/02/2021; postoperative day 2 following laparoscopic appendectomy. Patient yet to have return of bowel function. We will continue with current supportive management including pain meds incentive spirometry and DVT prophylaxis ? 12/03/2021; Patient seen, complains of intermittent abdominal discomfort. Admitted to passing some gas. Drainage from her RENETTA-tube significantly down. Deferring decision to start patient on oral diet to general surgery ? 12/04/2021: Doing well today, still with some NG tube output without any GI function. Will provide Chloraseptic spray for the pain and irritation caused by the NG tube. Will encourage getting out of bed and ambulation for return of bowel function ? 12/05/2021: She has had flatus today, will await evaluation by surgery hopefully can remove NG tube and start on slow diet titration ? 12/06/2021: NG has been removed, can slowly advance diet per recommendations of general surgery. Continue to encourage getting out of bed and ambulating as she is continuing to have flatus. 2. Fibromyalgia ? Patient is on nortriptyline continue 3. Cervical spinal stenosis ? With previous history of cervical spine fusion plan is to manage symptomatically DVT: Lovenox Charges/Coding Visit Charges Inpatient E&M: 32984 Subs Hosp L2
[2021-12-06] MEDS: 0.9% Normal Saline 1,000 ML 60 ML IV (11:10)
[2021-12-06 11:22] VITALS: BP 122/75; PULSE 75; RESP 16; TEMP 37; O2SAT 94
[2021-12-06] MEDS: Potassium Chloride 10mEq/100mL 10 MEQ/100 ML IV.SOLN. 75 MEQ IV BOLUS ×3 (11:28→14:20)
--- NOTE | 2021-12-06 12:33 | PN.SURG_ITS ---
Subjective Subjective Complaining of a headache today. No real flatus no bowel movement yet today. Pain is slightly improved. Objective Data Objective Data Less distended. RENETTA still only has serous fluid coming out of it. Vital Signs: Vital Signs Temp Pulse Resp BP Pulse Ox 98.6 F 75 16 122/75 H 94 12/06/21 11:22 12/06/21 11:22 12/06/21 11:22 12/06/21 11:22 12/06/21 11:22 Oxygen Flow Rate (L/min) 2 Oxygen Delivery Method Room Air Weight: 157 lb 10.088 oz Body Mass Index (BMI) 23.3 Intake & Output: Intake and Output for Last 24 Hours 12/04/21 12/05/21 12/06/21 23:59 23:59 23:59 Intake Total 2514 / 2644 2090.21 / 2140.21 1269.79 / 1269.79 Output Total 2415 / 3165 1865 / 1870 15 / 15 Balance 99 / -521 225.21 / 270.21 1254.79 / 1254.79 Lab / Micro Data Result Diagrams: 12/06/21 06:00 12/06/21 06:00 Labs: Laboratory Results - last 24 hr 12/03/21 15:10: Diff Path Review Reviewed 12/04/21 05:56: Diff Path Review Reviewed 12/06/21 06:00: WBC 13.8 H, RBC 3.86 L, Hgb 11.6 L, Hct 35.4 L, MCV 91.7, MCH 30.1, MCHC 32.8, RDW Std Deviation 47.0 H, RDW Coeff of Ivana 13.9, Plt Count 580 H, MPV 9.6, Immature Gran % (Auto) 3.800 H, Neut % (Auto) 76.3 H, Lymph % (Auto) 12.0 L, [place] % (Auto) 5.3, Eos % (Auto) 2.0, Baso % (Auto) 0.6, Absolute Neuts (auto) 10.6 H, Absolute Lymphs (auto) 1.66, Nucleated RBC % 0 12/06/21 06:00: Sodium 137, Potassium 3.3 L, Chloride 100, Carbon Dioxide 27.0, Anion Gap 10, BUN 7, Creatinine 0.57, Estim Creat Clear Calc 107.20, Est GFR (MDRD) Af Amer 139, Est GFR (MDRD) Non-Af 115, BUN/Creatinine Ratio 12.3, Glucose 82, Calcium 8.3 L Micro: Microbiology 12/03/21 15:25 Wound - Other Gram Stain - Final 12/03/21 15:25 Wound - Other Wound Culture - Final No growth aerobically. 12/03/21 15:25 Wound - Other Anaerobic Culture - Preliminary 11/28/21 11:53 Urine, Clean Catch Urine Culture - Final Mixed Gram Pos & Gram Neg Org Assessment & Plan Assessment/Plan (1) Pelvic abscess in female: PLAN: [place] small advances. [place] slightly nauseated and taking antinausea medication we will not push p.o. today. We will try to get her back on her oral medicines that she is naturally on to help with her headaches. RENETTA will remain in today.
[2021-12-06] MEDS: 0.9% Saline Lock 10 ML Syringe IV (15:16)
[2021-12-06 15:30] VITALS: BP 115/79; PULSE 72; RESP 16; TEMP 36.6; O2SAT 95
[2021-12-06] MEDS: Diclofenac 75 MG Tablet PO (17:42)
[2021-12-06 21:19] VITALS: BP 114/75; PULSE 69; RESP 16; TEMP 36.9; O2SAT 96
[2021-12-06] MEDS: Nortriptyline 25 MG Capsule 50 MG PO (21:22)
[2021-12-07 03:30] VITALS: BP 113/75; PULSE 80; RESP 16; TEMP 36.8; O2SAT 93
[2021-12-07] MEDS: metroNIDAZOLE 500 MG/100 ML BAG 100 MG IV ×3 (05:08→20:48)
[2021-12-07] MEDS: 0.9% Normal Saline 1,000 ML 60 ML IV ×2 (05:11→20:46)
[2021-12-07 05:40] LABS: Absolute Lymphocyte Count 1.41 X10^3/uL (0.83-4.51); Absolute Neutrophil Count 8.6 X10^3/uL (2.0-7.7); Basophil# 0.03 X10^3/uL; Basophil% 0.3 % (0-1); Eosinophil# 0.22 X10^3/uL; Eosinophils% 1.9 % (0-5); Hematocrit 34.4 % (37-47); Hemoglobin 11.5 g/dL (12.0-15.0); Lymphocyte # 1.41 X10^3/ul (0.83-4.51); Lymphocyte % 12.5 % (19-41); Mean Corp Hgb Conc 33.4 g/dL (32-36); Mean Corpuscular Hgb 30.3 pg (27.0-32.0); Mean Corpuscular Volume 90.8 fL (81-99); Mean Platelet Vol. 9.6 fl (6.2-12.0); Monocyte# 0.74 X10^3/uL; Monocyte% 6.6 % (0-10); NRBC Flagged by Analyzer 0 % (0-5); Neutrophil # 8.62 X10^3/uL (2.7-7.7); Neutrophil % 76.3 % (47-70); Platelet Count 597 K/mm3 (150-450); RBC Distribution Width CV 13.7 % (11.6-14.6); RBC Distribution Width SD 45.8 fl (35.1-43.9); Red Blood Count 3.79 M/mm3 (4.2-5.4); White Blood Count 11.3 K/mm3 (4.4-11.0)
[2021-12-07 06:22] LABS: Anion Gap 11 (5-15); BUN 6 mg/dL (7-18); BUN/Creat Ratio 10.9 RATIO (10-20); Calcium,Total 8.5 mg/dL (8.5-10.1); Chloride 101 mmol/L (98-107); Creatinine, Serum 0.55 mg/dL (0.55-1.02); EST Glomerular Filtration Rate 120 mL/min (>60); Est Glom Filt Rate - Afr Amer 145 mL/min (>60); Glucose 82 mg/dL (74-106); Magnesium 1.7 mg/dL (1.6-2.6); Phosphorus 2.8 mg/dL (2.5-4.9); Potassium 3.6 mmol/L (3.5-5.1); Sodium Level 138 mmol/L (136-145)
--- NOTE | 2021-12-07 09:16 | PCM.PN.HOSP ---
Subjective Subjective Pain is improving every day, she had a bowel movement this morning as well as continued flatus Objective Data Objective Data Vital Signs: Vital Signs Temp Pulse Resp BP Pulse Ox 98.2 F 80 16 113/75 93 12/07/21 03:30 12/07/21 03:30 12/07/21 03:30 12/07/21 03:30 12/07/21 03:30 Oxygen Flow Rate (L/min) 2 Oxygen Delivery Method Room Air Weight: 157 lb 10.088 oz Body Mass Index (BMI) 23.3 Intake & Output: Intake and Output for Last 24 Hours 12/06/21 12/07/21 12/08/21 03:59 03:59 03:59 Intake Total 2060.00 / 2060.00 1937.00 / 1937.00 841 / 841 Output Total 1120 / 1120 30 Balance 940.00 / 940.00 1907.00 / 1907.00 841 / 841 Lab / Micro Data Result Diagrams: 12/07/21 04:51 12/07/21 04:51 Labs: Laboratory Results - last 24 hr 12/07/21 04:51: WBC 11.3 H, RBC 3.79 L, Hgb 11.5 L, Hct 34.4 L, MCV 90.8, MCH 30.3, MCHC 33.4, RDW Std Deviation 45.8 H, RDW Coeff of Ivana 13.7, Plt Count 597 H, MPV 9.6, Immature Gran % (Auto) 2.400 H, Neut % (Auto) 76.3 H, Lymph % (Auto) 12.5 L, Drew % (Auto) 6.6, Eos % (Auto) 1.9, Baso % (Auto) 0.3, Absolute Neuts (auto) 8.6 H, Absolute Lymphs (auto) 1.41, Nucleated RBC % 0 12/07/21 04:51: Sodium 138, Potassium 3.6, Chloride 101, Carbon Dioxide 26.0, Anion Gap 11, BUN 6 L, Creatinine 0.55, Estim Creat Clear Calc 111.10, Est GFR (MDRD) Af Amer 145, Est GFR (MDRD) Non-Af 120, BUN/Creatinine Ratio 10.9, Glucose 82, Calcium 8.5, Phosphorus 2.8, Magnesium 1.7 Micro: Microbiology 12/03/21 15:25 Wound - Other Gram Stain - Final 12/03/21 15:25 Wound - Other Wound Culture - Final No growth aerobically. 12/03/21 15:25 Wound - Other Anaerobic Culture - Preliminary 11/28/21 11:53 Urine, Clean Catch Urine Culture - Final Mixed Gram Pos & Gram Neg Org Physical Exam Const alert, oriented x3 and no apparent distress Constitutional Narrative: NG tube in place General Appearance: cooperative HEENT normocephalic and moist oral mucous membranes Eyes PERRL, EOMs intact bilaterally and conjunctivae normal Neck supple and no JVD Resp normal respiratory effort, no retractions and no use of accessory muscles Auscultation: Negative for crackles, rales, rhonchi or wheezes Cardio regular rate, regular rhythm, S1 normal heart sound, S2 normal heart sound and no murmurs GI soft to palpation and non-distended; Negative for hepatosplenomegaly GI Narrative: Mildly tender Extremity no clubbing, cyanosis or edema Skin no rashes or lesions noted Neuro no focal motor deficits and no sensory deficits noted Psych affect normal Appearance: appropriate Assessment & Plan Assessment/Plan (1) Ileus: PLAN: 1. Abdominal pain Secondary to suspected appendicitis. Patient initial CAT scan obtained on admission demonstrated suspected microperforation in the right lower quadrant possibly of the appendix or colon. Case was discussed with Dr. Jarquin from who was of the opinion that patient had perforated appendix. Surgery was therefore advised. ? 12/01/2021; patient underwent laparoscopic appendectomy on 11/30/2021. Findings included perforated appendicitis ? 12/02/2021; postoperative day 2 following laparoscopic appendectomy. Patient yet to have return of bowel function. We will continue with current supportive management including pain meds incentive spirometry and DVT prophylaxis ? 12/03/2021; Patient seen, complains of intermittent abdominal discomfort. Admitted to passing some gas. Drainage from her RENETTA-tube significantly down. Deferring decision to start patient on oral diet to general surgery ? 12/04/2021: Doing well today, still with some NG tube output without any GI function. Will provide Chloraseptic spray for the pain and irritation caused by the NG tube. Will encourage getting out of bed and ambulation for return of bowel function ? 12/05/2021: She has had flatus today, will await evaluation by surgery hopefully can remove NG tube and start on slow diet titration ? 12/06/2021: NG has been removed, can slowly advance diet per recommendations of general surgery. Continue to encourage getting out of bed and ambulating as she is continuing to have flatus. ? 12/07/2021: Had a BM today as well as continued flatus hopefully can advance her diet to clear liquids, will await evaluation by general surgery 2. Fibromyalgia ? Patient is on nortriptyline continue 3. Cervical spinal stenosis ? With previous history of cervical spine fusion plan is to manage symptomatically DVT: Lovenox Charges/Coding Visit Charges Inpatient E&M: 91268 Subs Hosp L2
[2021-12-07 09:30] VITALS: BP 112/77; PULSE 77; RESP 16; TEMP 36.7; O2SAT 98
[2021-12-07] MEDS: Diclofenac 75 MG Tablet PO ×2 (09:33→17:41)
--- NOTE | 2021-12-07 11:32 | PN.SURG_ITS ---
Subjective Subjective Patient has had a bowel movement today. Still feels slightly nauseated. Objective Data Objective Data Abdomen is soft. Dressings are dry. I remove the RENETTA today. Vital Signs: Vital Signs Temp Pulse Resp BP Pulse Ox 98.2 F 80 16 113/75 93 12/07/21 03:30 12/07/21 03:30 12/07/21 03:30 12/07/21 03:30 12/07/21 03:30 Oxygen Flow Rate (L/min) 2 Oxygen Delivery Method Room Air Weight: 157 lb 10.088 oz Body Mass Index (BMI) 23.3 Intake & Output: Intake and Output for Last 24 Hours 12/05/21 12/06/21 12/07/21 23:59 23:59 23:59 Intake Total 2090.21 / 2140.21 1985.79 / 1985.79 941 / 941 Output Total 1865 / 1870 35 / 35 30 / 30 Balance 225.21 / 270.21 1951.79 / 195.79 911 / 911 Lab / Micro Data Result Diagrams: 12/07/21 04:51 12/07/21 04:51 Labs: Laboratory Results - last 24 hr 12/07/21 04:51: WBC 11.3 H, RBC 3.79 L, Hgb 11.5 L, Hct 34.4 L, MCV 90.8, MCH 30.3, MCHC 33.4, RDW Std Deviation 45.8 H, RDW Coeff of Ivana 13.7, Plt Count 597 H, MPV 9.6, Immature Gran % (Auto) 2.400 H, Neut % (Auto) 76.3 H, Lymph % (Auto) 12.5 L, [place] % (Auto) 6.6, Eos % (Auto) 1.9, Baso % (Auto) 0.3, Absolute Neuts (auto) 8.6 H, Absolute Lymphs (auto) 1.41, Nucleated RBC % 0 12/07/21 04:51: Sodium 138, Potassium 3.6, Chloride 101, Carbon Dioxide 26.0, Anion Gap 11, BUN 6 L, Creatinine 0.55, Estim Creat Clear Calc 111.10, Est GFR (MDRD) Af Amer 145, Est GFR (MDRD) Non-Af 120, BUN/Creatinine Ratio 10.9, Glucos e 82, Calcium 8.5, Phosphorus 2.8, Magnesium 1.7 Micro: Microbiology 12/03/21 15:25 Wound - Other Gram Stain - Final 12/03/21 15:25 Wound - Other Wound Culture - Final No growth aerobically. 12/03/21 15:25 Wound - Other Anaerobic Culture - Preliminary Checking for anaerobes, further studies to follow. 11/28/21 11:53 Urine, Clean Catch Urine Culture - Final Mixed Gram Pos & Gram Neg Org Assessment & Plan Assessment/Plan (1) Pelvic abscess in female: PLAN: Continuing to improve. White count is coming down appropriately. Hopefully will be able to discharge her tomorrow.
[2021-12-07] MEDS: Ondansetron 4 MG/2 ML Vial IV ×2 (11:59→20:42)
[2021-12-07] MEDS: oxyCODONE 5 MG Tablet PO ×3 (11:59→22:21)
[2021-12-07] MEDS: Acetaminophen 325 MG Tablet 650 MG PO (14:57)
[2021-12-07 15:30] VITALS: BP 112/78; PULSE 78; RESP 16; TEMP 36.7; O2SAT 96
[2021-12-07] MEDS: Nortriptyline 25 MG Capsule 50 MG PO (22:22)
[2021-12-07 22:31] VITALS: BP 125/82; PULSE 79; RESP 16; TEMP 36.7; O2SAT 94
[2021-12-08] MEDS: Ondansetron 4 MG/2 ML Vial IV (05:23)
[2021-12-08] MEDS: oxyCODONE 5 MG Tablet PO ×2 (05:27→10:31)
[2021-12-08] MEDS: metroNIDAZOLE 500 MG/100 ML BAG 100 MG IV (05:27)
[2021-12-08 05:35] VITALS: BP 111/77; PULSE 79; RESP 16; TEMP 36.7; O2SAT 94
--- NOTE | 2021-12-08 06:46 | PCM.PN.SRG ---
Subjective Subjective Pain is much better controlled. Tolerating p.o. Having bowel movements. Objective Data Objective Data Abdomen is soft. Incisions are dry. Vital Signs: Vital Signs Temp Pulse Resp BP Pulse Ox 98.0 F 79 16 111/77 94 12/08/21 05:35 12/08/21 05:35 12/08/21 05:35 12/08/21 05:35 12/08/21 05:35 Oxygen Flow Rate (L/min) 2 Oxygen Delivery Method Room Air Weight: 157 lb 10.088 oz Body Mass Index (BMI) 23.3 Intake & Output: Intake and Output for Last 24 Hours 12/06/21 12/07/21 12/08/21 23:59 23:59 23:59 Intake Total 1985.79 / 1985.79 2376 / 2376 150 / 150 Output Total Balance 1950.79 / 1950.79 2346 / 2346 150 / 150 Lab / Micro Data Result Diagrams: 12/07/21 04:51 12/07/21 04:51 Micro: Microbiology 12/03/21 15:25 Wound - Other Gram Stain - Final 12/03/21 15:25 Wound - Other Wound Culture - Final No growth aerobically. 12/03/21 15:25 Wound - Other Anaerobic Culture - Preliminary Checking for anaerobes, further studies to follow. 11/28/21 11:53 Urine, Clean Catch Urine Culture - Final Mixed Gram Pos & Gram Neg Org Assessment & Plan Assessment/Plan (1) Pelvic abscess in female: PLAN: Okay for discharge today.
--- NOTE | 2021-12-08 06:47 | DCINST_ITS ---
Discharge Instructions Diet Discharge Diet: Light diet - advance as tolerated Activity May shower in (days): 1 Dressing / Incision Call your doctor if your incision/area has: Continuous Slow Oozing, Sudden Increased Bleeding, Increased Pain/ Swelling, Increased Redness, Foul Smelling Discharge and Swelling at the incision site Call your doctor if you observe: Fever of 101 or Higher Cleanse incision/area with: Soap & Water Additional Dressing/Incision Instructions:: Steri-Strips will fall off in 7 to 10 days, if they do not fall off okay to remove after 10 days. Follow Up Care Please Follow Up With: Penny Kenyon MD Test Results: Test results from this visit will be discussed in further detail at your follow-up appointment, if applicable. Discharge Plan Admission Admit Date/Time: 11/28/21 15:04 Attending Provider: Nahun Soliman Primary Care Provider: Elizabeth Kline Consulting Providers: Penny Kenyon ; Gigi Canseco ; Elijah Ludwig Discharge Orders/Prescriptions Prescriptions: New oxycodone-acetaminophen 5-325 mg tablet 1 - 2 tab PO Q6H PRN (Reason: pain) 3 Days Qty: 14 RF: 0 amoxicillin-pot clavulanate 875-125 mg tablet 1 tab PO BID Qty: 10 RF: 0 metronidazole [Flagyl] 375 mg capsule 375 mg PO BID 10 Days Qty: 20 RF: 0 Continued ondansetron 4 mg tablet,disintegrating 4 mg PO Q8H PRN (Reason: nausea and vomiting) Qty: 20 RF: 0 diclofenac sodium 75 mg tablet,delayed release (DR/EC) 75 mg PO BID RF: 0 nortriptyline 50 mg capsule 50 mg PO DAILY RF: 0 dicyclomine 10 mg capsule 10 mg PO TID RF: 0 Referrals / Follow Up: Elizabeth Kline MD [Primary Care Provider] - Alicia Lamb PA-C [PHYSICIAN DIRECT MAIL MARKETER] -
[2021-12-08 07:20] VITALS: O2SAT 94
[2021-12-08 08:47] VITALS: BP 122/79; PULSE 74; RESP 16; TEMP 36.7; O2SAT 95
[2021-12-08] MEDS: Diclofenac 75 MG Tablet PO (08:53)
--- NOTE | 2021-12-08 09:01 | PCM.DC.SUM ---
Providers Date of Admission: 11/28/21 Primary Care Physician: Dr. Elizabeth Kline MD Consultations 11/28/21 17:15 Consult: General Surgery Routine Consulting Provider: Penny Kenyon Reason for Consult: possible micro perf EMERGENT Consult: No MD Notified: Yes Date Notified: 11/28/21 Time Notified: 15:05 Method of Notification: ED Physician Initiated Reason For Visit: ABD PAIN, ILIEUS Diagnosis Discharge Diagnosis (1) Pelvic abscess in female: Status: Acute Code(s): N73.9 - Female pelvic inflammatory disease, unspecified Medications at Discharge Home Medications ondansetron 4 mg PO Q8H PRN #20 tab 11/26/21 diclofenac sodium 75 mg PO BID 11/28/21 dicyclomine 10 mg PO TID 11/28/21 nortriptyline 50 mg PO DAILY 11/28/21 amoxicillin-pot clavulanate 1 tab PO BID #10 tab 12/01/21 oxycodone-acetaminophen 1 - 2 tab PO Q6H PRN 3 Days #14 tab 12/01/21 metronidazole [Flagyl] 375 mg PO BID 10 Days #20 cap 12/08/21 Hospital Course Operations appendectomy Procedures None Summary of Care Provided Minutes Spent on Discharge: 45 Hospital Course: Per HPI: ROB YOUNGBLOOD, is a 61 F who presents complaints of abdominal pain, nausea. Patient was seen 2 days ago in the ER when she began having symptoms and the CT showed concern for 2 liver lesions possibly hemangiomas there was also mesenteric stranding and reported possible ileus. Patient was discharged home from the ED with dicyclomine and ondansetron. Patient has been using this at home with no improvement and has had decreased p.o. intake due to her persistent nausea. Patient states that she had diarrhea but for the past 2 days she has not had a bowel movement. Hospital Course: 1. Abdominal pain due to appendicitis status post laparoscopic appendectomy with postoperative pelvic abscess status post washout Secondary to suspected appendicitis. Patient initial CAT scan obtained on admission demonstrated suspected microperforation in the right lower quadrant possibly of the appendix or colon. Case was discussed with Dr. Jarquin from who was of the opinion that patient had perforated appendix. Surgery was therefore advised. ? 12/01/2021; patient underwent laparoscopic appendectomy on 11/30/2021. Findings included perforated appendicitis ? 12/02/2021; postoperative day 2 following laparoscopic appendectomy. Patient yet to have return of bowel function. We will continue with current supportive management including pain meds incentive spirometry and DVT prophylaxis ? 12/03/2021; Patient seen, complains of intermittent abdominal discomfort. Admitted to passing some gas. Drainage from her RENETTA-tube significantly down. Deferring decision to start patient on oral diet to general surgery ? 12/04/2021: Doing well today, still with some NG tube output without any GI function. Will provide Chloraseptic spray for the pain and irritation caused by the NG tube. Will encourage getting out of bed and ambulation for return of bowel function ? 12/05/2021: She has had flatus today, will await evaluation by surgery hopefully can remove NG tube and start on slow diet titration ? 12/06/2021: NG has been removed, can slowly advance diet per recommendations of general surgery. Continue to encourage getting out of bed and ambulating as she is continuing to have flatus. ? 12/07/2021: Had a BM today as well as continued flatus hopefully can advance her diet to clear liquids, will await evaluation by general surgery ? 12/08/2021: Feels much better today, pain is minimal and she continues to have flatus. She was advanced to a regular diet yesterday and while she did develop some nausea she has not had any emesis. I discussed with her that she needs to continue with a bland progressive diet and to just go slow. I discussed with her the possibility for discharge today she expressed understanding of the risk and benefits of going home and would like to go home today. She will need to follow-up with general surgery as well as her primary care doctor as an outpatient and she has been provided with antibiotics and pain management by general surgery that she is as an outpatient. 2. Fibromyalgia ? Patient is on nortriptyline continue 3. Cervical spinal stenosis ? With previous history of cervical spine fusion plan is to manage symptomatically Physical Exam Const alert, oriented x3 and no apparent distress Constitutional Narrative: NG tube in place General Appearance: cooperative HEENT normocephalic and moist oral mucous membranes Eyes PERRL, EOMs intact bilaterally and conjunctivae normal Neck supple and no JVD Resp normal respiratory effort, no retractions and no use of accessory muscles Auscultation: Negative for crackles, rales, rhonchi or wheezes Cardio regular rate, regular rhythm, S1 normal heart sound, S2 normal heart sound and no murmurs GI soft to palpation and non-distended; Negative for hepatosplenomegaly GI Narrative: Mildly tender Extremity no clubbing, cyanosis or edema Skin no rashes or lesions noted Neuro no focal motor deficits and no sensory deficits noted Psych affect normal Appearance: appropriate Weight / BMI Weight Weight: 157 lb 10.088 oz Body Mass Index (BMI) 23.3 ABG / Lab / Microbiology Data Result Diagrams: 12/07/21 04:51 12/07/21 04:51 Microbiology: Microbiology 12/03/21 15:25 Wound - Other Gram Stain - Final 12/03/21 15:25 Wound - Other Wound Culture - Final No growth aerobically. 12/03/21 15:25 Wound - Other Anaerobic Culture - Preliminary Checking for anaerobes, further studies to follow. 11/28/21 11:53 Urine, Clean Catch Urine Culture - Final Mixed Gram Pos & Gram Neg Org D/C Instructions Discharge Diet: Light diet - advance as tolerated May shower in (days): 1 Call your doctor if your incision/area has: Continuous Slow Oozing, Sudden Increased Bleeding, Increased Pain/ Swelling, Increased Redness, Foul Smelling Discharge and Swelling at the incision site Call your doctor if you observe: Fever of 101 or Higher, Shortness of breath, Dizziness, Fainting spells, Swelling in the ankles and Chest pain Cleanse incision/area with: Soap & Water Additional Dressing/Incision Instructions: Steri-Strips will fall off in 7 to 10 days, if they do not fall off okay to remove after 10 days. Please Follow Up With: Penny Kenyon MD When: Call the office for a follow-up appointment 1-2 weeks; after 5 PM and on the weekends call [phone] with any concerns. Meaningful Use Info Meaningful Use Diagnoses (Choose all that apply): None applicable Discharge Plan Admission Admit Date/Time: 11/28/21 15:04 Attending Provider: Nahun Soliman Primary Care Provider: Elizabeth Kline Consulting Providers: Penny Kenyon ; Gigi Canseco ; Elijah Ludwig Discharge Orders/Prescriptions Prescriptions: New oxycodone-acetaminophen 5-325 mg tablet 1 - 2 tab PO Q6H PRN (Reason: pain) 3 Days Qty: 14 RF: 0 amoxicillin-pot clavulanate 875-125 mg tablet 1 tab PO BID Qty: 10 RF: 0 metronidazole [Flagyl] 375 mg capsule 375 mg PO BID 10 Days Qty: 20 RF: 0 Continued ondansetron 4 mg tablet,disintegrating 4 mg PO Q8H PRN (Reason: nausea and vomiting) Qty: 20 RF: 0 diclofenac sodium 75 mg tablet,delayed release (DR/EC) 75 mg PO BID RF: 0 nortriptyline 50 mg capsule 50 mg PO DAILY RF: 0 dicyclomine 10 mg capsule 10 mg PO TID RF: 0 Referrals / Follow Up: Elizabeth Kline MD [Primary Care Provider] - Within 1 Week Alicia Lamb PA-C [PHYSICIAN MEDICAL LAB TECH INSTRUCTOR] - Disposition Disposition (needs filled in before D/C Order can be placed): Home, Self Care Charges/Coding Visit Charges Inpatient E&M: 15737 Disch Hosp
[2021-12-08 10:32] VITALS: BP 112/65; PULSE 94; RESP 16; TEMP 36.6; O2SAT 96
--- NOTE | 2021-12-08 10:41 | CASEMGMT ---
CAMERON RAO NOTE: Pt being discharged home today. CAMERON RAO to room. Introduced self and role @ [facility]. Pt denies having any discharge planning needs or concerns. Eliu FORMANN CAMERON RAO
== END 2021-12-08 11:03 | disposition home or self-care (01) | DRG 338 ==
LOC: ED 10:32 → MS3 11-29 07:25
PROVIDERS: Internal Medicine; Nurse Practitioner Family; Surgery; Admitting Provider Internal Medicine; Emergency Provider Emergency Medicine; PCP Family Medicine; Visit Provider Family Medicine
PROC: 0DTJ4ZZ Resection of Appendix, Percutaneous Endoscopic Approach (ICD-10-PCS; CPT 44970; principal; 2021-11-30 12:45)
PROC: 0W9J8ZZ Drainage of Pelvic Cavity, Via Natural or Artificial Opening Endoscopic (ICD-10-PCS; CPT 49000; principal; 2021-12-03 15:00)
DX: K35.33 Acute appendicitis with perforation, localized peritonitis, and gangrene, with abscess (principal); K65.1 Peritoneal abscess; K56.7 Ileus, unspecified; K57.20 Diverticulitis of large intestine with perforation and abscess without bleeding; E86.0 Dehydration; M50.30 Other cervical disc degeneration, unspecified cervical region; M48.02 Spinal stenosis, cervical region; M79.7 Fibromyalgia; E87.6 Hypokalemia; K43.2 Incisional hernia without obstruction or gangrene
CPT/HCPCS: 36415; 74018; 74022; 74177; 74178; 80048; 80053; 80076; 81001; 83605; 83690; 83735; 84100; 85025; 85610; 85730; 86850; 86900; 86901; 87070; 87075; 87077; 87086; 87088; 87205; 88304; 93005; 99285; J7030; J7050; Q9967; A4216; C1760; J2405

== ENCOUNTER → 2022-01-04 | Outpatient (CLI) | payer OTHER, SELFPAY ==
--- NOTE | 2022-01-04 15:41 | RAD_ITS ---
EXAM: XR ABDOMEN, 2 VIEWS CLINICAL INDICATION: ABDOMINAL PAIN TECHNIQUE: Frontal view of the abdomen/pelvis with upright view of the abdomen. This report was created using [employer] report generation technology. COMPARISON: None. FINDINGS: LOWER THORAX: No acute pathology. INTRAPERITONEAL SPACE: No free air. GASTROINTESTINAL TRACT: Unremarkable. Non-obstructive. No bowel or stomach distention. ORGANS: Unremarkable as visualized. No organomegaly. No abnormal calcifications. BONES/JOINTS: No acute pathology. SOFT TISSUES: No acute pathology. RAD/Abd Inc Decub and/or Erect IMPRESSION: Unremarkable abdominal series. Electronically Signed: Romie Morin MD at 18:04 EDT ,
[2022-01-04 17:52] LABS: Absolute Lymphocyte Count 3.35 X10^3/uL (0.83-4.51); Absolute Neutrophil Count 7.8 X10^3/uL (2.0-7.7); Basophil# 0.09 X10^3/uL; Basophil% 0.7 % (0-1); Eosinophil# 0.17 X10^3/uL; Eosinophils% 1.4 % (0-5); Hematocrit 43.6 % (37-47); Hemoglobin 14.1 g/dL (12.0-15.0); Lymphocyte # 3.35 X10^3/ul (0.83-4.51); Lymphocyte % 27.4 % (19-41); Mean Corp Hgb Conc 32.3 g/dL (32-36); Mean Corpuscular Hgb 29.7 pg (27.0-32.0); Mean Platelet Vol. 9.7 fl (6.2-12.0); Monocyte# 0.77 X10^3/uL; Monocyte% 6.3 % (0-10); NRBC Flagged by Analyzer 0 % (0-5); Neutrophil # 7.76 X10^3/uL (2.7-7.7); Neutrophil % 63.6 % (47-70); Platelet Count 441 K/mm3 (150-450); RBC Distribution Width CV 14.2 % (11.6-14.6); RBC Distribution Width SD 47.8 fl (35.1-43.9); Red Blood Count 4.74 M/mm3 (4.2-5.4); White Blood Count 12.2 K/mm3 (4.4-11.0)
[2022-01-04 18:22] LABS: ALB/GLOB Ratio 0.9 RATIO (0.9-2.4); AST(SGOT) 31 U/L (15-37); Alanine Aminotransfer ALT/SGPT 41 U/L (13-56); Albumin, Serum 3.9 g/dL (3.2-5.0); Alkaline Phosphatase 88 U/L (45-117); Anion Gap 10 (5-15); BUN 18 mg/dL (7-18); BUN/Creat Ratio 15.8 RATIO (10-20); Calcium,Total 10.3 mg/dL (8.5-10.1); Chloride 100 mmol/L (98-107); Creatinine, Serum 1.14 mg/dL (0.55-1.02); EST Glomerular Filtration Rate 52 mL/min (>60); Est Glom Filt Rate - Afr Amer 63 mL/min (>60); Globulin 4.4 g/dL (2.2-4.2); Glucose 114 mg/dL (74-106); Potassium 3.5 mmol/L (3.5-5.1); Protein, Total 8.3 g/dL (6.4-8.2); Sodium Level 137 mmol/L (136-145)
== END | disposition home or self-care (01) ==
LOC: MTLAB 15:38
PROVIDERS: PCP Family Medicine; Referring Provider Family Medicine; Visit Provider Family Medicine
DX: R10.9 Unspecified abdominal pain (principal)
CPT/HCPCS: 36415; 74019; 80053; 85025

== ENCOUNTER → 2022-01-05 | Outpatient (CLI) | payer OTHER, SELFPAY ==
--- NOTE | 2022-01-05 09:22 | CT_ITS ---
STUDY: CT ABDOMEN AND PELVIS WITH CONTRAST REASON FOR EXAM: Female, 61 years old. Abdominal pain. Recent appendectomy for ruptured appendicitis. RADIATION DOSAGE (If Supplied By Facility): CTDIvol = ( 12.66 ) mGy, DLP = ( 353.00 ) mGycm TECHNIQUE: Transaxial images were obtained from the dome of the diaphragm to the symphysis pubis without oral contrast. Oral and amp; IV Redi-CAT and amp; 100mL Isovue-300 was administered. Sagittal and coronal images were reconstructed. Individualized dose optimization techniques were used for this CT. COMPARISON: Comparison is made with prior study dated 12/03/2021. FINDINGS: Minimal basilar atelectasis. The visualized portions of the heart are within normal limits. Stable 1.3 cm cyst in the lateral aspect of the dome of the right lobe of the liver. Normal gallbladder and extrahepatic biliary system. Stable 1.4 cm cyst in the anterior medial aspect of the spleen. Normal pancreas. The previously seen small amount of fluid collection in the left upper quadrant is not seen at this time. Normal bilateral adrenal glands. Normal right kidney. Normal left kidney. Normal visualized stomach. Mildly dilated small bowel loops. Moderate amount of fecal material is seen throughout the colon. There has been improvement as compared to prior study. The previously seen drainage catheter in the right hemipelvis has been removed. Normal colon. The patient is status post appendectomy. Normal abdominal aorta. Normal inferior vena cava. Normal retroperitoneum. Normal urinary bladder. No evidence of fluid in the pelvis at this time. Normal abdominal wall. There are diffuse degenerative changes of the visualized lumbar spine. Loss of the normal lumbar lordosis. CT/Abdomen/Pelvis WITH Contrast IMPRESSION: Status post appendectomy. Mild dilatation of small bowel loops. Moderate amount of fecal material is seen throughout the colon. Electronically Signed: Bravo Pritchard MD at 12:30 EDT ,
== END | disposition home or self-care (01) ==
LOC: CT 09:20
PROVIDERS: PCP Family Medicine; Referring Provider Family Medicine; Visit Provider Family Medicine
DX: K35.32 Acute appendicitis with perforation, localized peritonitis, and gangrene, without abscess (principal); R10.9 Unspecified abdominal pain; Z90.89 Acquired absence of other organs
CPT/HCPCS: 74177; Q9967

== ENCOUNTER → 2022-07-05 | Outpatient (CLI) | payer OTHER, SELFPAY ==
[2022-07-05 10:46] LABS: Anion Gap 6 (5-15); BUN 25 mg/dL (7-18); BUN/Creat Ratio 19.2 RATIO (10-20); Calcium,Total 9.3 mg/dL (8.5-10.1); Chloride 107 mmol/L (98-107); Cholesterol 271 mg/dL (200); EST Glomerular Filtration Rate 44 mL/min (>60); Est Glom Filt Rate - Afr Amer 54 mL/min (>60); Glucose 102 mg/dL (74-106); High Density Lipoprotein 71 mg/dL; Potassium 4.5 mmol/L (3.5-5.1); Sodium Level 142 mmol/L (136-145); Triglycerides 72 mg/dL; Very Low Density Lipoprotein 14 mg/dL (5-40)
== END | disposition home or self-care (01) ==
LOC: MTLAB 08:06
PROVIDERS: PCP Family Medicine; Referring Provider Family Medicine; Visit Provider Family Medicine
DX: Z00.00 Encounter for general adult medical examination without abnormal findings (principal)
CPT/HCPCS: 36415; 80048; 80061; 82306

== ENCOUNTER 2022-07-11 06:55 | Day surgery (SDC) | payer OTHER, SELFPAY ==
[2022-07-11] VITALS (8 sets, daily range): BP systolic 104–122; BP diastolic 74–86; PULSE 67–81; RESP 16; TEMP 36.1–36.5; O2SAT 97–100; BMI 21.4
[2022-07-11] MEDS: Lactated Ringers 1,000 ML 15 ML IV ×2 (07:05→08:50)
--- NOTE | 2022-07-11 07:41 | H&P.OPEN ---
[facility] - General General Date of Admission: 07/11/22 HPI Narrative ROB YOUNGBLOOD, is a 62 F who presents during colonoscopy. Patient had her last colonoscopy about 6 years ago and did have polyps at that time which were benign. Patient denies any family history of colon cancer. Patient is known to me due to perforated appendicitis in November 2021. Patient denies any chronic abdominal pain/nausea/vomiting/reflux. [facility] Medical History Alcohol use Arthritis Back pain Fibromyalgia High cholesterol Injury of head and neck Migraine headache Non-smoker Post-menopausal Spinal stenosis Wears glasses Home Medications diclofenac sodium 75 mg tablet,delayed release 75 mg PO BID antiinflamatory 11/28/21 [History Last Taken 11/28/21] nortriptyline 50 mg capsule 50 mg PO QHS sleep 11/28/21 [History Last Taken 11/25/21] sumatriptan succinate 50 mg tablet See Rx Instructions PO .COMPLEX PRN MIGRAINES 05/18/22 [History Last Taken Unknown] cyclobenzaprine 10 mg tablet 10 mg PO PRN PRN Muscle Pain 07/10/22 [History Last Taken Unknown] magnesium 250 mg tablet 250 mg PO DAILY 07/10/22 [History Last Taken Unknown] multivitamin 1 tab PO DAILY 07/10/22 [History Last Taken Unknown] Allergy/AdvReac Type Severity Reaction Status Date / Time No Known Allergies Allergy Verified 07/10/22 08:29 Surgical History History of back surgery History of colonoscopy Hx of knee surgery Hx of surgical procedure S/P cervical spinal fusion S/P laparoscopic appendectomy Social History Smoking Status: Never smoker Past Medical/Surgical History Planned Operation Planned Operative Procedure/s: COLONOSCOPY Previous Hospitalizations/Surgeries HX Hospitalizations: Yes (APPENDECTOMY 11/30/2021) Any Problems With Anesthesia: Yes (NAUSEA & HEADACHES) You/Your Family Experience Fever (Hyperthermia) With Anes: No Cholinesterase deficiency: No Cardiovascular Hx Hypertension: No Respiratory Hx Chronic Obstructive Pulmonary Disease (COPD): No Hx Asthma: No Hx Emphysema: No Hx Sleep Apnea: No Hx Respiratory Tract Infection/Cold (presently): No Do You Snore Loudly (louder than talking or can be heard): No Do You Often Feel Tired/ Fatigued/ Sleepy Dring Daytime?: No Has Anyone Observed You Stop Breathing During Sleep?: No Result (for STOP score): Negative Smoking Status: Never smoker Gastrointestinal Special diet followed at home: No Neurological Does patient have nerve stimulator: No Miscellaneous Recent Exposure to Contagious Disease: No Allergies No Known Allergies Allergy (Verified 07/10/22 08:29) Discharge Is Pt Admitted From a Snf, or a Nursing Home: No After D/C, Where Do you Plan to Go: Return Home Vital Signs Vital Signs Vital Signs: 07/11/22 07:21 07/11/22 07:21 Temperature 97.7 F L Temperature Source Temporal Pulse Rate 81 Respiratory Rate 16 Respiratory Pattern Normal Blood Pressure 104/74 Blood Pressure Mean 84 Blood Pressure Source Monitor Blood Pressure Position Semi-Fowlers Blood Pressure Location Right Arm Pulse Ox 97 Oxygen Delivery Method Room Air Weight Weight: 145 lb 8.081 oz Body Mass Index (BMI) 21.4 Physical Exam Const alert, oriented x3 and no apparent distress HEENT normocephalic and head/scalp atraumatic Resp normal respiratory effort Cardio regular rate GI soft to palpation and non-tender; Negative for non-distended Palpation: Negative for guarding Extremity no clubbing, cyanosis or edema Neuro CN's II-XII intact bilaterally Psych mental status grossly normal Assessment & Plan Assessment/Plan (1) Encounter for screening for malignant neoplasm of colon: Surgery Risks - Colonoscopy Risks Include but are not Limited To: Risks include but are not limited to: Bleeding, perforation requiring further surgery, inability to complete colonoscopy requiring barium enema. Patient and her no further questions this time.
--- NOTE | 2022-07-11 08:00 | COLBX_PTH ---
PATIENT: ROB YOUNGBLOOD LOC: EN U#:[id number] AGE/SX: 62/F ROOM: RE07/11/[address]: Dr. Penny Kenyon MD : 1960 BED: DIS: 07/11/2022 SPEC #: [id number] RECD: 07/11/22 11:32 STATUS: GRICELDA KACI #: [id number] VALENTINE: 07/11/22 08:[address]: Penny Kenyon DEPT: SURGICAL PATHOLOGY RECD BY: Marga Thakkar ENTERED: 07/11/22 13:53 SP TYPE: COLON BX OTHR DR: Dr. Stas Marin MD Tissues: Rectum, NOS Procedures: Surgery Specimen Level IV HEADER OPERATION: Colonoscopy ? open access (MAC), biopsy PRE-OP DIAGNOSIS: Screening TISSUE SUBMITTED: Rectal polyp biopsy MICROSCOPIC DIAGNOSIS Rectal polyp, biopsy: Hyperplastic polyp. DARION:farzana 07/12/2022 MICROSCOPIC DESCRIPTION Slides are reviewed. GROSS DESCRIPTION Received in fixative is one container labeled with the patient's name and designated rectal polyp. The specimen consists of one irregular fragment of light alonso soft tissue that measures 0.5 x 0.5 x 0.1 cm. The specimen is totally submitted in one cassette. / AM:farzana 07/11/2022 TC:1 CPT: 08596
--- NOTE | 2022-07-11 09:15 | OP.COLON_ITS ---
Patient Name: Edie Bueno Procedure Date: 07/11/2022 7:48 AM Date of : 1960 Age: 62 Procedure: Colonoscopy Indications: High risk colon cancer surveillance: Personal history of colonic polyps Providers: Penny Kenyon MD Medicines: Monitored Anesthesia Care Patient Profile: This is a 62 year old female. Last Colonoscopy: 6 years ago. Complications: No immediate complications. Procedure: Pre-Anesthesia Assessment: - Prior to the procedure, a History and Physical was performed, and patient medications and allergies were reviewed. The patient's tolerance of previous anesthesia was also reviewed. The risks and benefits of the procedure and the sedation options and risks were discussed with the patient. All questions were answered, and informed consent was obtained. Prior Anticoagulants: The patient has taken no previous anticoagulant or antiplatelet agents. ASA Grade Assessment: Per anesthesia. After reviewing the risks and benefits, the patient was deemed in satisfactory condition to undergo the procedure. After I obtained informed consent, the scope was passed under direct vision. Throughout the procedure, the patient's blood pressure, pulse, and oxygen saturations were monitored continuously. The Colonoscope was introduced through the anus and advanced to the cecum, identified by the ileocecal valve-unable to intubate the cecum due to tortuous colon/looping of scope. The colonoscopy was performed with difficulty due to a tortuous colon. Successful completion of the procedure was aided by applying abdominal pressure. The patient tolerated the procedure well. The quality of the bowel preparation was good. Scope In: 7:56:38 AM Scope Withdrawal Time 0 hours 8 minutes 8 seconds Scope Out: 9:08:12 AM Total Procedure Duration Time 1 hour 11 minutes 34 seconds Findings: The perianal and digital rectal examinations were normal. A less than 5 mm polyp was found in the rectum. The polyp was sessile. The polyp was removed with a cold biopsy forceps. Resection and retrieval were complete. The exam was otherwise without abnormality. Impression: - One less than 5 mm polyp in the rectum, removed with a cold biopsy forceps. Resected and retrieved. - The examination was otherwise normal. Recommendation: - Discharge patient to home. - Resume previous diet. - Continue present medications. - Await pathology results. - Repeat colonoscopy in 5 years for surveillance based on pathology results. Procedure Code(s): --- Professional --- 40942, PT, Colonoscopy, flexible; with biopsy, single or multiple Diagnosis Code(s): --- Professional --- Z86.010, Personal history of colonic polyps K62.1, Rectal polyp CPT copyright 2017 [employer]. All rights reserved. 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 MD Penny Grullon MD 07/11/2022 9:14:46 AM This report has been signed electronically. Number of Addenda: 0 Note Initiated On: 07/11/2022 7:48 AM
--- NOTE | 2022-07-11 09:16 | OP.CCLET_ITS ---
07/11/2022 [address] [place] [address] Re : Colonoscopy procedure for Edie Bueno Dear Dr. Kline This procedure was performed on Monday, July 11, 2022. My impressions and recommendations are as follows: Impressions : - One less than 5 mm polyp in the rectum, removed with a cold biopsy forceps. Resected and retrieved. - The examination was otherwise normal. Recommendations : - Discharge patient to home. - Resume previous diet. - Continue present medications. - Await pathology results. - Repeat colonoscopy in 5 years for surveillance based on pathology results. My findings are described in the full procedure note, which is enclosed. If I can be of further assistance, please feel free to contact me at Doctor phone number(s): , Work: . Sincerely, MD Penny Grullon MD 07/11/2022 9:14:46 AM This report has been signed electronically.
--- NOTE | 2022-07-11 10:00 | SUR.PHASEII ---
PT states she has a tender abdomen and she would like this nurse to ask for pain meds. spoke with Dr. Kenyon how gave order for 650mg of tylenol. she encourages pt to get up and walk around to get air out. relayed this information to the pt.
[2022-07-11] MEDS: Acetaminophen 325 MG Tablet 650 MG PO (10:12)
== END 2022-07-11 10:20 | disposition home or self-care (01) ==
LOC: EN 06:58 → AC 07:01
PROVIDERS: PCP Family Medicine; Referring Provider Surgery; Visit Provider Surgery
PROC: 0DJD8ZZ Inspection of Lower Intestinal Tract, Via Natural or Artificial Opening Endoscopic (ICD-10-PCS; CPT 45378; principal; 2022-07-11 07:55)
DX: Z12.11 Encounter for screening for malignant neoplasm of colon (principal); K62.1 Rectal polyp; Z90.49 Acquired absence of other specified parts of digestive tract; E78.00 Pure hypercholesterolemia, unspecified; M79.7 Fibromyalgia; Z86.010 Personal history of colon polyps
CPT/HCPCS: 45380; 88305; J7120; J2405

== ENCOUNTER → 2022-07-17 | Outpatient (CLI) | payer OTHER, SELFPAY ==
--- NOTE | 2022-07-17 07:20 | EKG12_ITS ---
Test Reason : PREOP Blood Pressure : / mmHG Vent. Rate : 076 BPM Atrial Rate : 076 BPM P-R Int : 156 ms QRS Dur : 074 ms QT Int : 388 ms P-R-T Axes : 032 019 045 degrees QTc Int : 436 ms Normal sinus rhythm Low voltage QRS Septal infarct , age undetermined Abnormal ECG Confirmed by MATTHEW MONTGOMERY, CANDELARIO ([id number]), book or script editor HELADIO BURNHAM ([id number]) on 07/18/2022 9:51:27 AM Referred By: NICOLE Confirmed By:CANDELARIO CASTRO MD
[2022-07-17 08:42] LABS: Hematocrit 41.4 % (37-47); Hemoglobin 13.4 g/dL (12.0-15.0); Mean Corp Hgb Conc 32.4 g/dL (32-36); Mean Corpuscular Hgb 31.1 pg (27.0-32.0); Mean Corpuscular Volume 96.1 fL (81-99); Mean Platelet Vol. 9.6 fl (6.2-12.0); Platelet Count 338 K/mm3 (150-450); RBC Distribution Width CV 14.5 % (11.6-14.6); RBC Distribution Width SD 51.2 fl (35.1-43.9); Red Blood Count 4.31 M/mm3 (4.2-5.4); White Blood Count 7.7 K/mm3 (4.4-11.0)
[2022-07-17 09:01] LABS: Anion Gap 7 (5-15); BUN 25 mg/dL (7-18); BUN/Creat Ratio 23.6 RATIO (10-20); Calcium,Total 9.4 mg/dL (8.5-10.1); Chloride 106 mmol/L (98-107); Creatinine, Serum 1.06 mg/dL (0.55-1.02); EST Glomerular Filtration Rate 56 mL/min (>60); Est Glom Filt Rate - Afr Amer 68 mL/min (>60); Glucose 96 mg/dL (74-106); Potassium 4.8 mmol/L (3.5-5.1); Sodium Level 141 mmol/L (136-145)
== END | disposition home or self-care (01) ==
PROVIDERS: PCP Family Medicine; Visit Provider Otolaryngology
DX: Z01.818 Encounter for other preprocedural examination (principal); Z01.812 Encounter for preprocedural laboratory examination
CPT/HCPCS: 36415; 80048; 85027; 93005

== ENCOUNTER → 2022-08-07 | Outpatient (CLI) | payer OTHER, SELFPAY ==
[2022-08-07 18:39] LABS: Thyroid Stim Hormone (TSH) 1.47 uIU/mL (0.358-3.74)
== END | disposition home or self-care (01) ==
LOC: MTLAB 15:53
PROVIDERS: PCP Family Medicine; Referring Provider Family Medicine; Visit Provider Family Medicine
DX: R53.83 Other fatigue (principal)
CPT/HCPCS: 36415; 84443

== ENCOUNTER 2022-08-14 15:50 | Outpatient (CLI) | payer OTHER, SELFPAY ==
--- NOTE | 2022-08-14 15:53 | BI_ITS ---
MAMMOGRAPHY - BILATERAL SCREENING REASON FOR EXAM: Female, 62 years old. Routine annual screening examination. PERTINENT HISTORY: Non-contributory. Removal of the bilateral breast implants. TECHNIQUE: Digital bilateral breast eliot (3D mammographic acquisition) in the CC and MLO projections. 2-D mediolateral oblique (MLO) and craniocaudad (CC) views of both breasts were obtained. CAD: Full Field Digital Mammography with Computer Added Detection was performed. COMPARISON: Comparison is made with prior study dated 01/14/2020 and 06/16/2018. FINDINGS: Breast Composition: The breasts are extremely dense, which lowers the sensitivity of mammography. There are no dominant masses or suspicious calcifications. The bilateral breast implants have been removed as compared to prior study. No other significant abnormalities are identified. BI/SCRN MAMM (CAD)W/ELIOT BILAT IMPRESSION: Stable bilateral screening mammogram. Yearly follow-up mammogram recommended. (A) ASSESSMENT CATEGORY: BIRADS Category 2: Benign. A letter regarding these results will be sent to the patient by the facility within 30 days. Approximately 10% of breast cancers are not detected by mammography. A normal mammogram should not delay biopsy of a clinically suspicious abnormality. [id number] Electronically Signed: Bravo Pritchard MD at 13:15 EST ,
--- NOTE | 2022-08-14 16:08 | BD_ITS ---
STUDY: DUAL ENERGY X-RAY ABSORPTIOMETRY / DXA REASON FOR EXAM: Female, 62 years old. Z780 -- . TECHNIQUE: Bone Mineral Density (BMD) measurements of lumbar spine and bilateral hips were obtained. COMPARISON: Comparison is made with prior study dated 01/24/2016. FINDINGS: Lumbar Spine (L1-L4): g/cm2 (0.919) / T-score (-1.2) / Z-score (0.3) Findings are suggestive of osteopenia with a low fracture risk. Left Femur Total: g/cm2 (0.717) / T-score (-1.8) / Z-score (-0.9) Left Femoral Neck: g/cm2 (0.611) / T-score (-2.1) / Z-score (-0.8) Right Femur Total: g/cm2 (0.691) / T-score (-2.1) / Z-score (-1.1) Right Femoral Neck: g/cm2 (0.610) / T-score (-2.1) / Z-score (-0.9) The T-Scores on the most recent prior examination were: Lumbar Spine (L1-L4): There has been worsening of bone density since the previous examination. Left Femur Total: which represents a worsening of 17.9%. Right Femur Total: which represents a worsening of 15.3%. BD/Dexa Bone Density Study IMPRESSION: The patient is considered osteopenic as outlined below according to World Jackson Organization (WHO) criteria with a moderate fracture risk. There has been worsening of bone density since the previous examination. Reference Information: The T-score is the number of standard deviations above or below the standard which is normal for young adults at their peak bone mineral density. The World Health Organization (WHO) interprets the T-scores as follows: Above -1 Normal bone density Between -1 and -2.5 Osteopenia Equal to / or below -2.5 Osteoporosis As a practical clinical guideline, osteopenia may be graded as follows: Mild -1 through -1.5 Moderate -1.6 through -2.0 Severe -2.1 through -2.4 The Z-score is the number of standard deviations above or below age-matched controls. A Z-score of less than -1.5 would be considered abnormal. References: 1. NIH Osteoporosis and Related Bone Diseases www osteo.org 2. International Society for Clinical Densitometry www iscd.org 3. National Osteoporosis Foundation www nof.org Electronically Signed: Bravo Pritchard MD at 8:38 EST ,
== END 2022-08-14 23:59 | disposition home or self-care (01) ==
PROVIDERS: PCP Family Medicine; Visit Provider Family Medicine
DX: Z00.00 Encounter for general adult medical examination without abnormal findings (principal); Z12.31 Encounter for screening mammogram for malignant neoplasm of breast
CPT/HCPCS: 77063; 77067; 77080

== ENCOUNTER → 2023-03-11 | Outpatient (CLI) | payer OTHER, SELFPAY ==
--- NOTE | 2023-03-11 09:12 | EKG12_ITS ---
Test Reason : PRE OP Blood Pressure : / mmHG Vent. Rate : 070 BPM Atrial Rate : 070 BPM P-R Int : 152 ms QRS Dur : 074 ms QT Int : 388 ms P-R-T Axes : 023 000 031 degrees QTc Int : 419 ms Normal sinus rhythm Septal infarct (cited on or before 17-JUL-2022) Abnormal ECG Confirmed by JANET MONTGOMERY, ANGELA ([id number]), video news editor MANUEL ORR ([id number]) on 03/14/2023 2:11:17 PM Referred By: Haseeb Mobley Confirmed By:ANGELA GONZALES MD
[2023-03-11 09:19] LABS: Hematocrit 44.8 % (37-47); Hemoglobin 14.8 g/dL (12.0-15.0); Mean Corpuscular Hgb 31.6 pg (27.0-32.0); Mean Corpuscular Volume 95.5 fL (81-99); Mean Platelet Vol. 9.5 fl (6.2-12.0); Platelet Count 331 K/mm3 (150-450); RBC Distribution Width SD 45.9 fl (35.1-43.9); Red Blood Count 4.69 M/mm3 (4.2-5.4); White Blood Count 6.9 K/mm3 (4.4-11.0)
[2023-03-11 09:57] LABS: Anion Gap 5 (5-15); BUN 20 mg/dL (7-18); BUN/Creat Ratio 19.6 RATIO (10-20); Calcium,Total 9.2 mg/dL (8.5-10.1); Chloride 107 mmol/L (98-107); Creatinine, Serum 1.02 mg/dL (0.55-1.02); EST Glomerular Filtration Rate 59 mL/min (>60); Est Glom Filt Rate - Afr Amer 71 mL/min (>60); Glucose 108 mg/dL (74-106); Potassium 4.7 mmol/L (3.5-5.1); Sodium Level 141 mmol/L (136-145)
== END | disposition home or self-care (01) ==
PROVIDERS: PCP Family Medicine; Referring Provider Otolaryngology; Visit Provider Otolaryngology
DX: Z01.818 Encounter for other preprocedural examination (principal)
CPT/HCPCS: 36415; 80048; 85027; 93005

== ENCOUNTER → 2023-03-19 | Outpatient (CLI) | payer OTHER, SELFPAY ==
--- NOTE | 2023-03-19 | MASS_PTH ---
PATIENT: ROB YOUNGBLOOD LOC: [facility]#:[id number] AGE/SX: 62/F ROOM: RE03/19/[address]: Dr. Lucho Mobley MD : 1960 BED: DIS: 03/19/2023 SPEC #: [id number] RECD: 03/19/23 15:08 STATUS: GRICELDA CLEMONS #: [id number] VALENTINE: 03/19/23 00:[address]: Lucho Mobley DEPT: SURGICAL PATHOLOGY RECD BY: Marga Thakkar ENTERED: 03/20/23 08:26 SP TYPE: Mass OTHR DR: Dr. Stas Marin MD [facility] Tissues: Neck, NOS Procedures: Decalcification bone/plaque Surgery Specimen Level V HEADER OPERATION: Right excision submandibular gland PRE-OP DIAGNOSIS: Localized swelling, mass and lump, neck; hypertrophy of salivary gland TISSUE SUBMITTED: Right submandibular gland MICROSCOPIC DIAGNOSIS Right submandibular gland, excision: Sialolithiasis with associated sialadenitis. AM:farzana 03/25/2023 MICROSCOPIC DESCRIPTION Slides are reviewed. GROSS DESCRIPTION Received is one container labeled with the patient's name and not further designated. The specimen consists of an irregular fragment of alonso soft tissue resembling salivary gland measuring 4.5 x 2.6 x 1.6 cm. The specimen is inked and serially sectioned to reveal a yellow-alonso calculus measuring 1.3 x 1.2 cm. The specimen is serially sectioned and totally submitted in six cassettes after decalcification. / AM:farzana 03/20/2023 TC:3 CPT: 38654, 36994
== END | disposition home or self-care (01) ==
LOC: LABSPEC 15:28
PROVIDERS: PCP Family Medicine; Referring Provider Otolaryngology; Visit Provider Otolaryngology
DX: R22.1 Localized swelling, mass and lump, neck (principal); K11.1 Hypertrophy of salivary gland
CPT/HCPCS: 88305; 88307; 88311

== ENCOUNTER → 2023-12-04 | Outpatient (CLI) | payer OTHER, SELFPAY ==
--- NOTE | 2023-12-04 14:26 | RAD_ITS ---
STUDY: X-RAY - LUMBAR SPINE REASON FOR EXAM: Female, 63 years old. BACK PAIN TECHNIQUE: 4 view(s) of the lumbar spine were obtained. COMPARISON: None FINDINGS: Normal lumbar lordosis. There is no substantial scoliosis. There is a normal alignment of the vertebrae. There is multilevel endplate spondylosis of the lumbar vertebrae. There is multi-level degenerative disc disease with multi-level disc space narrowing. Findings most pronounced at L4-L5 and L5-S1. There is no demonstrated fracture. The soft tissue structures are unremarkable. RAD/L/S Spine Min 4 Views IMPRESSION: No acute abnormalities. Multilevel degenerative changes. Electronically Signed: Ankur Arzate MD at 22:38 EDT ,
--- NOTE | 2023-12-04 14:26 | RAD_ITS ---
STUDY: X-RAY - PELVIS AND LEFT HIP REASON FOR EXAM: Female, 63 years old. PAIN TECHNIQUE: 3 views of the pelvis and hip. COMPARISON: None. FINDINGS: There is a non-specific bowel gas pattern. Normal visualized soft tissue structures. Normal bilateral iliac wings, sacroiliac joints and visualized sacrum. Normal bilateral superior and inferior pubic rami. Normal pubic symphysis. Normal bilateral ischial tuberosities. Normal visualized femoral head. Normal acetabulum. Normal hip joint. RAD/HIP, UNI W/ Pelvis 2-3 Views IMPRESSION: Normal x-ray examination of the pelvis and hip. Electronically Signed: Ankur Arzate MD at 23:00 EDT ,
== END | disposition home or self-care (01) ==
LOC: MTRAD 14:24
PROVIDERS: PCP Family Medicine; Referring Provider Family Medicine; Visit Provider Family Medicine
DX: M25.552 Pain in left hip (principal); M54.9 Dorsalgia, unspecified
CPT/HCPCS: 72110; 73502

== ENCOUNTER → 2023-12-23 | Outpatient (CLI) | payer OTHER, SELFPAY ==
--- NOTE | 2023-12-23 16:20 | MRI_ITS ---
STUDY: MRI LUMBAR SPINE WITHOUT CONTRAST REASON FOR EXAM: Female, 63 years old patient with back pain and left leg radiculopathy. TECHNIQUE: Standardized fat and water weighted pulse sequences were obtained in the sagittal and axial planes. COMPARISON: CT of the abdomen and pelvis dated January 05, 2022. FINDINGS: T12-L1: Normal endplates. Normal disc height, signal and morphology. Normal bilateral facet joints. Normal central canal and bilateral lateral recesses. Normal bilateral intervertebral neural foramina. Normal lumbar lordosis. There is no substantial scoliosis. Normal conus medullaris that terminates at the L1 level. L1-2: There is mild annular disk bulge and osteophyte complex. There is mild degenerative arthropathy of the facet joints. Bilateral neuroforamina are narrowed without MR evidence for nerve impingement. There is no appreciable acquired central canal stenosis. L2-3: There is a broad central disc protrusion. There is mild degenerative arthropathy of the facet joints. There is mild central acquired canal stenosis. Neural foramina are bilaterally narrowed without evidence of nerve impingement. L3-4: There is mild annular disk bulge and osteophyte complex. There is mild degenerative arthropathy of the facet joints. Bilateral neuroforamina are narrowed without MR evidence for nerve impingement. There is mild acquired central canal stenosis. L4-5: There is narrowing of the disc. There is a Schmorl''s node at the inferior endplate of L4. There is mild annular disk bulge and osteophyte complex. There is mild degenerative arthropathy of the facet joints. Bilateral neuroforamina are narrowed without MR evidence for nerve impingement. There is mild acquired central canal stenosis. L5-S1: There is narrowing of the disc. Abnormal signal at the endplates is present secondary to chronic Modic changes. There is mild annular disk bulge and osteophyte complex. There is mild degenerative arthropathy of the facet joints. Bilateral neuroforamina are narrowed without MR evidence for nerve impingement. There is no appreciable acquired central canal stenosis. There is heterogeneous marrow signal within the sacral alae that may be secondary to fatty infiltration of the marrow. Normal visualized paraspinous soft tissue structures. MRI/Spine Lumbar (Routine) IMPRESSION: Moderately severe multilevel degenerative changes of the lumbar spine, as described. Electronically Signed: Carin Jane MD at 6:38 EDT ,
== END | disposition home or self-care (01) ==
PROVIDERS: PCP Family Medicine; Referring Provider Family Medicine; Visit Provider Family Medicine
DX: M54.9 Dorsalgia, unspecified (principal)
CPT/HCPCS: 72148

== ENCOUNTER 2024-02-19 16:30 | Outpatient (RCR) | payer OTHER, SELFPAY ==
--- NOTE | 2024-01-23 13:48 | HP.PTEVAL ---
Patient's Visit Information Visit Information Visit Information: ROB YOUNGBLOOD is a 63 year old F referred to Physical Therapy by Dr. Nolan Springer MD with a diagnosis of lumbar IVDD. Date of Evaluation: 01/22/24 Physical Therapist: Khris Chilel DPT Visit Plan Frequency: 2x /Week Duration: 6 Weeks Plan: Start with extension progression as she had increased L hip flexor strength post. She has marked HS tightness on the L side as well. I will work on lumbar ROM with focus on decreasing her symptoms and increasing her LLE strength, since overall pain is minimal. Subjective Subjective: Pt. is here today for her initial evaluation with diagnosis of lumbar IVDD. Pt. reports having issues for a few months now, but really started to notice L leg and back pain after taking care of her mother. Pt. reports initially her pain was very intense, but was took an anti inflammatory pill from her son in law who practices functional medicine. Pt. reports this pill was very effective in reducing her symptoms. She is now how ever still left with some LE weakness. She does have some with lifting her LLE. She reports she had noticed difficulty with completing a SLR in long sitting with her L leg, but is able to with her RLE. Pt. reports overall her pain is minimal at this point in time since taking the anti inflammatory from son in law. No changes in B/B noted. 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 pt. is hopeful to further reduce her N/T in her leg and increase the strength in her leg. History of discectomy. Pain Lumbar spine: Pain Intensity (Out of 10): 0 Pain Intensity Range: 0 and 1 L gluteal region: Pain Intensity (Out of 10): 0 Pain Intensity Range: 0 and 2 Objective Objective: POSTURE: Pt. has fairly normal posture, No lateral shift noted. PALPATION: Pt. has mild tenderness along lumbar spine, no pain with spring testing. NEURO: Pt. has normal sensation in BLEs, Pt. has normal DTR in BLEs. ROM: Pt. has good ROM of B hips, slight tightness in L HS compared to R side. LUMBAR SPINE: flexion nil loss NE, ext min loss NE, SB nil loss bilat NE, rotation nil loss bilat NE. MMT: Pt. has some weakness in her LLE compared to her R. ankle: 5/5 throughout; knee: ext R side 37.1#, L 31.5#; knee flexion: L 14.5#, R 25.1#; hip: flexion RLE 36.7#, LLE 11.4#. GAIT: Pt. has a fairly normal gait pattern, she does have a slight reduction in L step length. STAIRS: Normal. Special Tests L/S Slump test left side: Negative L/S Slump test right side: Negative L/S Left Straight Leg Raise: Negative L/S Right Straight Leg Raise: Negative Lumbar Standing: Flexion - Mechanical Response: No effect Lumbar Standing: Flexion - Symptoms During Testing: No effect Lumbar Standing: Flexion - Symptoms After Testing: No effect Lumbar Standing: Extension - Mechanical Response: No effect Lumbar Standing: Extension - Symptoms During Testing: Centralizing Lumbar Standing: Extension - Symptoms After Testing: No better Lumbar Standing: Right Side Glides - Mechanical Response: No effect Lumbar Standing: Right Side [place] - Symptoms During Testing: No effect Lumbar Standing: Right Side [place] - Symptoms After Testing: No effect Lumbar Standing: Left Side [place] - Mechanical Response: No effect Lumbar Standing: Left Side [place] - Symptoms During Testing: No effect Lumbar Standing: Left Side [place] - Symptoms After Testing: No effect Lumbar Lying: Flexion - Mechanical Response: No effect Lumbar Lying: Flexion - Symptoms During Testing: No effect Lumbar Lying: Flexion - Symptoms After Testing: No effect Lumbar Lying: Extension - Mechanical Response: No effect Lumbar Lying: Extension - Symptoms During Testing: Centralizing Lumbar Lying: Extension - Symptoms After Testing: No better Balance/Special Test Scores Oswestry Low Back Score: 4 Goals Goal 1:: LTG: Pt. to be I with HEP for lumbar ROM and LE strengthening. Goal Time Frame: 4-6 Weeks Goal 2:: STG: Pt. to have increased lumbar extension by 25%. Goal Time Frame: 2-4 Weeks Goal 3:: LTG: Pt. to have increased L hip flexion strength symmetrical to R side. Goal Time Frame: 4-6 Weeks Goal 4:: LTG: Pt. to complete all work duties without increase in lumbar spine or LLE issues. Goal Time Frame: 4-6 Weeks Rehabilitation Potential Physical Therapy Diagnosis: Pt. has signs and symptoms consistent with lumbar IVDD. Pt. has overall improved symptoms, but has some LLE weakness, most notably in her L hip flexors. Pt. reports noticing increased difficulty lifting her L hip into flexion when long sitting. She also notes issues with hip flexion during walking. Pt would benefit from PT to increase her lumbar ROM and increase her LE strength. Rehabilitation Potential: Good Anticipated Interventions Patient/Client Instruction: Educate patient on: Condition, Plan of Care, Risk Factors and Benefits of Fitness Program For the Purpose of:: To foster healthy habits, To improve decision making, To facilitate caregiver knowledge, To improve self management, To prevent re-injury and To improve ability to perform tasks related to life management Therapeutic Exercise to Include: Strength training, Power training, Postural training, Flexibilty training, Passive ROM, Active ROM, Dynamic Lumbar Stabilization and Vinay Exercises For the Purpose of:: To decrease pain, To increase ROM, To improve nutrient delivery to tissue, To increase oxygenation perfusion, To improve muscle performance and motor function, To improve ability of physical actions for home/community/work/leisure, To improve gait and locomotor functions, To improve health of tissue, To decrease soft tissue restriction and To increase flexibility/ROM Manual Therapy Techniques to Include: Mobilization For the Purpose of:: To decrease pain, To increase ROM, To improve nutrient delivery to tissue, To increase oxygenation perfusion and To improve muscle performance and motor function Text: Thank you for the opportunity to evaluate your patient. For Medicare and Medicare HMO plans, please review the plan of care and approve it. It will need to be FAXED BACK to us at [phone] for Medicare purposes. For Medicare only, by signing this I certify the plan of care. Please let me know if there are questions or concerns regarding this plan of care. Physician Signature: Date:
--- NOTE | 2024-07-09 09:00 | HP.PT.NRP ---
Patient Information Patient Information: ROB YOUNGBLOOD was seen in my office for initial evaluation on 01/22/24. The following Plan of Care was established for this patient: POC Established Initial Frequency: 2x /Week Initial Duration: 6 Weeks Anticipated Interventions Patient/Client Instruction: Educate patient on: Condition, Plan of Care, Risk Factors and Benefits of Fitness Program For the Purpose of:: To foster healthy habits, To improve decision making, To facilitate caregiver knowledge, To improve self management, To prevent re-injury and To improve ability to perform tasks related to life management Therapeutic Exercise to Include: Strength training, Power training, Postural training, Flexibilty training, Passive ROM, Active ROM, Dynamic Lumbar Stabilization and Vinay Exercises For the Purpose of:: To decrease pain, To increase ROM, To improve nutrient delivery to tissue, To increase oxygenation perfusion, To improve muscle performance and motor function, To improve ability of physical actions for home/community/work/leisure, To improve gait and locomotor functions, To improve health of tissue, To decrease soft tissue restriction and To increase flexibility/ROM Manual Therapy Techniques to Include: Mobilization For the Purpose of:: To decrease pain, To increase ROM, To improve nutrient delivery to tissue, To increase oxygenation perfusion and To improve muscle performance and motor function Last Seen Last Seen: This patient was last seen in our office 02/19/24. Pertinent comments regarding their Physical therapy will appear below: Pt. has not been her in several months and will be DC from PT at this point in time. At this point I will be discontinuing this patient from physical therapy. I would be happy to see this patient again in the future if found appropriate by the physician. Thank you! Khris Chilel, DPT Balance/Gait/Functional tests Balance/Special Test Scores Oswestry Low Back Score: 4
== END 2024-02-19 19:00 | disposition home or self-care (01) ==
LOC: PT 16:30
PROVIDERS: PCP Family Medicine; Visit Provider Orthopaedic Surgery Orthopaedic Surgery of the Spine
DX: M51.36 Other intervertebral disc degeneration, lumbar region (principal)
CPT/HCPCS: 97110; 97161

== ENCOUNTER → 2024-07-06 | Outpatient (CLI) | payer OTHER, SELFPAY ==
[2024-07-06 18:00] LABS: Absolute Lymphocyte Count 2.31 X10^3/uL (0.83-4.51); Absolute Neutrophil Count 3.1 X10^3/uL (2.0-7.7); Basophil# 0.08 X10^3/uL; Basophil% 1.3 % (0-1); Eosinophil# 0.14 X10^3/uL; Eosinophils% 2.3 % (0-5); Hematocrit 43.8 % (37-47); Hemoglobin 13.7 g/dL (12.0-15.0); Lymphocyte # 2.31 X10^3/ul (0.83-4.51); Lymphocyte % 38.1 % (19-41); Mean Corp Hgb Conc 31.3 g/dL (32-36); Mean Corpuscular Hgb 29.8 pg (27.0-32.0); Mean Corpuscular Volume 95.2 fL (81-99); Mean Platelet Vol. 9.7 fl (6.2-12.0); Monocyte# 0.44 X10^3/uL; Monocyte% 7.2 % (0-10); NRBC Flagged by Analyzer 0 % (0-5); Neutrophil # 3.08 X10^3/uL (2.7-7.7); Neutrophil % 50.8 % (47-70); Platelet Count 303 K/mm3 (150-450); RBC Distribution Width CV 13.4 % (11.6-14.6); RBC Distribution Width SD 47.5 fl (35.1-43.9); White Blood Count 6.1 K/mm3 (4.4-11.0)
[2024-07-06 18:46] LABS: Anion Gap 6 (5-15); BUN 29 mg/dL (7-18); BUN/Creat Ratio 23.4 RATIO (10-20); Calcium,Total 9.2 mg/dL (8.5-10.1); Chloride 108 mmol/L (98-107); Creatinine, Serum 1.24 mg/dL (0.55-1.02); EST Glomerular Filtration Rate 47 mL/min (>60); Est Glom Filt Rate - Afr Amer 56 mL/min (>60); Glucose 92 mg/dL (74-106); Potassium 4.3 mmol/L (3.5-5.1); Sodium Level 141 mmol/L (136-145)
== END | disposition home or self-care (01) ==
PROVIDERS: PCP Family Medicine; Referring Provider Family Medicine; Visit Provider Family Medicine
DX: Z01.818 Encounter for other preprocedural examination (principal)
CPT/HCPCS: 36415; 80048; 85025

== ENCOUNTER → 2025-04-08 | Outpatient (CLI) | payer BC, SELFPAY ==
[2025-04-08 11:06] LABS: Cholesterol 270 mg/dL (<=200); Low Density Lipoprotein Calc. 182 mg/dL; Triglycerides 117 mg/dL; Very Low Density Lipoprotein 23 mg/dL (5-40); cholesterol:hdl ratio screen 4.17
[2025-04-08 11:17] LABS: Anion Gap 10 (5-15); BUN 23 mg/dL (4-19); BUN/Creat Ratio 23.8 RATIO (10-20); Calcium,Total 8.9 mg/dL (7.6-11.0); Carbon Dioxide 24.6 mmol/L (21.0-32.0); Chloride 103 mmol/L (98-108); Glucose 98 mg/dL (70-99); Potassium 4.5 mmol/L (3.3-5.1)
== END | disposition home or self-care (01) ==
LOC: MFPLAB 09:05
PROVIDERS: PCP Family Medicine; Visit Provider Family Medicine
DX: Z00.00 Encounter for general adult medical examination without abnormal findings (principal); F32.A Depression, unspecified
CPT/HCPCS: 36415; 80048; 80061; 84443